=== PATIENT | male | born 1950 | race Hispanic/Latino ===

== ENCOUNTER 2017-06-05 14:59 | Inpatient (IN) | payer MEDICARE ==
[2017-06-05 14:59] VITALS: PULSE 69
--- NOTE | 2017-06-05 15:49 | C.PDOC ---
History Of Present Illness Sae Nettles is a 67 year old male, with a past medical history HTN, A-fib and arthritis, who was sent to the emergency department by Dr. Chu for right great toe redness and pain onset x1 week. Patient is currently on Coumadin for A -fib. He denies any trauma. No further medical complaints. PMD: Cain Chu Time Seen by Provider: 06/05/17 15:34 Chief Complaint (Nursing): Lower Extremity Problem/Injury History Per: Patient History/Exam Limitations: no limitations Onset/Duration Of Symptoms: Days (x1 week) Current Symptoms Are (Timing): Still Present Severity: Mild Pain Scale Rating Of: 2 Past Medical History Reviewed: Historical Data, Nursing Documentation, Vital Signs Vital Signs: Last Vital Signs Temp 97.4 F L 06/05/17 15:03 Pulse 72 06/05/17 15:03 Resp 20 06/05/17 15:03 BP 110/70 06/05/17 15:03 Pulse Ox 99 06/05/17 16:51 - Medical History PMH: Arthritis, Atrial Fibrillation, Benign Prostatic Hyperplasia, CAD, Cardiac Aneurysm (aortic), CHF, Gall Bladder Disease, HTN, Mitral Valve Prolapse Surgical History: Pacemaker - [facility] Procedures DRAINAGE OF GALLBLADDER WITH DRAINAGE DEVICE, PERC APPROACH (07/20/16) FLUOROSCOPY OF GALLBLADDER USING LOW OSMOLAR CONTRAST (08/28/16) Family History: States: Unknown Family Hx - Social History Hx Tobacco Use: No Hx Alcohol Use: No Hx Substance Use: No - Immunization History Hx Tetanus Toxoid Vaccination: Yes Hx Influenza Vaccination: Yes Hx Pneumococcal Vaccination: Yes Review Of Systems Except As Marked, All Systems Reviewed And Found Negative. Musculoskeletal: Positive for: Foot Pain (right great toe) Physical Exam - Physical Exam Appears: No Acute Distress Skin: Normal Color, Warm, Dry Head: Atraumatic Neck: Normal, Normal ROM, Supple Extremity: Tenderness (erythema with great toe, excoriated plantar surface), No Calf Tenderness, Swelling (right great toe) Pulses: Right Dorsalis Pedis: Normal (PT pulse normal) ED Course And Treatment - Laboratory Results Result Diagrams: 06/05/17 16:05 06/05/17 16:05 O2 Sat by Pulse Oximetry: 99 (RA) Pulse Ox Interpretation: Normal Medical Decision Making Medical Decision Making: Initial Impression: Cellulitis Initial Plan: --Comp Metabolic Panel --CBC w/ differential --PTT --PT --Chest one view [RAD] --Vancomycin 1 gm in 200 ml IVPB --Blood culture --Foot right 3 views routine [RAD] --reevaluation 16:35 -Spoke to Dr. Chu, will admit for cellulitis 17:03 CXR FINDINGS: LUNGS: Clear. Bilateral prominent nipple shadows PLEURA: No pneumothorax or pleural fluid seen. CARDIOVASCULAR: Cardiomegaly. Left-sided AICD device. Midline sternotomy. Faint valvular prosthesis suggested OSSEOUS STRUCTURES: Minimal thoracic spondylosis. VISUALIZED UPPER ABDOMEN: Normal. OTHER FINDINGS: None. IMPRESSION: No infiltrate. No acute cardiopulmonary pathology appreciated 17:05 Foot x-ray FINDINGS: BONES: No fracture. JOINTS: First metatarsal-phalangeal joint 1st interphalangeal joint space narrowing with subchondral sclerosis. SOFT TISSUES: Normal. OTHER FINDINGS: Hammertoe orientations and clinodactyly posterior calcaneal spur- blending Achilles tendon insertional enthesophyte. Shallow appearing plantar arch. Faint anterior arterial vascular calcifications IMPRESSION: No fracture. Degenerative changes. Posterior calcaneal spurring. Disposition Discussed With Dr.: Cain Chu Doctor Will See Patient In The: Hospital Counseled Patient/Family Regarding: Studies Performed, Diagnosis - Disposition Disposition: HOSPITALIZED Disposition Time: 16:30 Condition: FAIR - Clinical Impression Clinical Impression: Cellulitis - Scribe Statement Mitesh Silva Provider Attestation: All medical record entries made by the Scribe were at my direction and personally dictated by me. I have reviewed the chart and agree that the record accurately reflects my personal performance of the history, physical exam, medical decision making, and the department course for this patient. I have also personally directed, reviewed, and agree with the discharge instructions and disposition.
[2017-06-05 16:10] LABS: BASO # 0.1 K/uL (0.0-0.2); BASO % 0.7 % (0.0-2.0); EOS # 0.2 K/uL (0.0-0.7); EOS % 2.1 % (0.0-4.0); HEMATOCRIT 34.3 % (35.0-51.0); LYMPH # 1.6 K/uL (1.0-4.3); MEAN CORPUSCULAR HEMOGLOBIN 33.7 pg (27.0-31.0); MEAN CORPUSCULAR HGB CONC 34.1 g/dL (33.0-37.0); MEAN PLATELET VOLUME 7.5 fL (7.2-11.7); MONO # 0.7 K/uL (0.0-0.8); MONO % 8.1 % (0.0-10.0); NRBC % 0.1 % (0.0-2.0); RED CELL DISTRIBUTION WIDTH 14.8 % (11.5-14.5); WHITE BLOOD COUNT 8.8 K/uL (4.8-10.8)
[2017-06-05 16:14] LABS: MEAN CELL VOLUME 98.7 fL (80.0-94.0)
[2017-06-05 16:20] LABS: INR 1.4
[2017-06-05 16:27] LABS: ALB/GLOB RATIO 1.4 (1.0-2.1); BILIRUBIN,TOTAL 0.7 mg/dL (0.2-1.3); CALCIUM 8.8 mg/dl (8.6-10.4); POTASSIUM 4.7 mmol/L (3.6-5.2); TOTAL PROTEIN 7.2 g/dL (6.3-8.3)
[2017-06-05] MEDS ORDERED: Vancomycin 1 gm/NS 200 ml 1 GM/200 ML BAG IVPB ONE (17:00)
--- NOTE | 2017-06-05 17:05 | RAD ---
PROCEDURE: CHEST RADIOGRAPH, 1 VIEW HISTORY: abd pain COMPARISON: 07/20/2016 FINDINGS: LUNGS: Clear. Bilateral prominent nipple shadows PLEURA: No pneumothorax or pleural fluid seen. CARDIOVASCULAR: Cardiomegaly. Left-sided AICD device. Midline sternotomy. Faint valvular prosthesis suggested OSSEOUS STRUCTURES: Minimal thoracic spondylosis. VISUALIZED UPPER ABDOMEN: Normal. OTHER FINDINGS: None. IMPRESSION: No infiltrate. No acute cardiopulmonary pathology appreciated
--- NOTE | 2017-06-05 17:07 | RAD ---
PROCEDURE: Right Foot Radiographs. HISTORY: foot swelling COMPARISON: None. FINDINGS: BONES: No fracture. JOINTS: First metatarsal-phalangeal joint 1st interphalangeal joint space narrowing with subchondral sclerosis. SOFT TISSUES: Normal. OTHER FINDINGS: Hammertoe orientations and clinodactyly posterior calcaneal spur- blending Achilles tendon insertional enthesophyte. Shallow appearing plantar arch. Faint anterior arterial vascular calcifications IMPRESSION: No fracture. Degenerative changes. Posterior calcaneal spurring.
[2017-06-05 19:51] VITALS: RESP 20
[2017-06-05] MEDS ORDERED: Oxycodone/Acetaminophen 5/325 mg Tab PO PRN (21:12)
[2017-06-05] MEDS: Metoprolol Succinate 25 mg XL Tab PO SCH (22:02)
[2017-06-05] MEDS: Clindamycin 600mg/50ml NS 600 MG/50 ML BAG IVPB SCH (22:03)
[2017-06-06] MEDS: Clindamycin 600mg/50ml NS 600 MG/50 ML BAG IVPB SCH ×3 (05:51→22:35)
[2017-06-06 07:40] LABS: INR 1.6
[2017-06-06] MEDS ORDERED: Ergocalciferol 50,000 Intl Units Cap PO SCH (10:00)
[2017-06-06] MEDS: Saccharomyces Boulardi 250 mg Cap PO SCH ×3 (10:46→18:00)
[2017-06-06] MEDS: buPROPion 150 mg/24 Hours XL Tab PO SCH (10:47)
[2017-06-06] MEDS: Metoprolol Succinate 25 mg XL Tab PO SCH (10:47)
--- NOTE | 2017-06-06 13:40 | VASCLAB ---
PROCEDURE: Lower Extremity Venous Duplex Exam. HISTORY: R big toe ulcer PRIORS: None. TECHNIQUE: Bilateral common femoral, femoral, popliteal and posterior tibial, peroneal and great saphenous veins were evaluated. Flow was assessed with color Doppler, compressibility, assessment of phasic flow and augmentation response. Report prepared by Imtiaz Rico, VICK, RVT FINDINGS: RIGHT: 1. Common Femoral Vein: 1.1. Compressibility - Fully compressible: Thrombus - None : Flow - Phasic: Augmentation -Normal: Reflux - None. 2. Femoral Vein: 2.1. Compressibility - Fully compressible: Thrombus - None : Flow - Phasic: Augmentation -Normal: Reflux - None. 3. Popliteal Vein: 3.1. Compressibility - Fully compressible: Thrombus - None : Flow - Phasic: Augmentation -Normal: Reflux - None. 4. Posterior Tibial Vein: 4.1. Compressibility - Fully compressible: Thrombus - None: Flow - Phasic: Augmentation -Normal: Reflux - None. 5. Peroneal Vein: 5.1. Compressibility - Fully compressible: Thrombus - None: Flow - Phasic: Augmentation -Normal: Reflux - None. 6. Great Saphenous Vein: 6.1. Compressibility - Fully compressible: Thrombus - None: Flow - Phasic: Augmentation - Normal: Reflux - None. LEFT: 1. Common Femoral Vein: 1.1. Compressibility - Fully compressible: Thrombus - None: Flow - Phasic: Augmentation -Normal: Reflux - None. 2. Femoral Vein: 2.1. Compressibility - Fully compressible: Thrombus - None: Flow - Phasic: Augmentation -Normal: Reflux - None. 3. Popliteal Vein: 3.1. Compressibility - Fully compressible: Thrombus - None : Flow - Phasic: Augmentation -Normal: Reflux - None. 4. Posterior Tibial Vein: 4.1. Compressibility - Fully compressible: Thrombus - None: Flow - Phasic: Augmentation -Normal: Reflux - None. 5. Peroneal Vein: 5.1. Compressibility - Fully compressible: Thrombus - None: Flow - Phasic: Augmentation -Normal: Reflux - None. 6. Great Saphenous Vein: 6.1. Compressibility - Fully compressible: Thrombus - None: Flow - Phasic: Augmentation - Normal: Reflux - None. OTHER FINDINGS: Right: Anechoic irregular shaped non vascularlized mass noted behind the right knee, clinical correlation recommended. Left: None significant. IMPRESSION: Right: No evidence of deep or superficial vein thrombosis of the right lower extremity. Normal valve function noted of the right side. Left: No evidence of deep or superficial vein thrombosis of the left lower extremity. Normal valve function noted of the left side.
[2017-06-06] MEDS: MethylPREDNISolone 40 mg Vial IVP SCH ×2 (14:28→22:36)
--- NOTE | 2017-06-06 20:16 | CP.PCM.CON ---
History of Present Illness - History of Present Illness History of Present Illness: Podiatry Consult Note- Dr. Murphy 67 y.o m with PMHx of atrial fibrillation, CAD, aortic aneurysm, CHF, HTN, MVP, gout, arthritis, gall bladder disease, BPH, hernias seen at bedside for right foot hallux ulceration admitted for right foot cellulitis. Patient reports that he came to the ED after his primary doctor told him to for an infected right toe. He states he has been getting abx in the hospital and his redness and swelling is improving. Patient reports he first noticed the ulceration about 1 week ago. He does not know how he got the ulcer. Pt does not know if the ulcer was there long before. He denies any trauma or recent falls. States that he is in no pain but reports a throbbing sensation to the right hallux. He also complains of numbness and tingling to the RLE that is being maintained by Gabapentin. Pt denies n/v/sob/cp/chills/f or d. Patient denies calf pain. MD: Dr. Chu PMHx: atrial fibrillation, CAD, aortic aneurysm, CHF, HTN, MVP, gout, arthritis , gall bladder disease, BPH, hernias PSH: pacemaker, gallbladder removal, mitral valve change ALL: pencillin, statins- face swelling SH: reports socially drinking, denies current ilicit drug use (former drug user) , denies smoking FH: mother- DM, breast cancer, father- colon cancer MEDS: see medication reconciled list Past Patient History - Infectious Disease Hx of Infectious Diseases: None - Past Medical History & Family History Past Medical History?: Yes - Past Social History Smoking Status: Former Smoker - CARDIAC Hx Atrial Fibrillation: Yes Hx Congestive Heart Failure: Yes Hx Hypertension: Yes Hx Mitral Valve Prolapse: Yes Hx Pacemaker: Yes - PULMONARY Hx Respiratory Disorders: No - NEUROLOGICAL Hx Neurological Disorder: No - HEENT Hx HEENT Problems: Yes Hx Cataracts: Yes - INTEGUMENTARY Other/Comment: right great toe red and swollen - MUSCULOSKELETAL/RHEUMATOLOGICAL Hx Arthritis: Yes Hx Falls: No - GASTROINTESTINAL Hx Gall Bladder Disease: Yes - GENITOURINARY/GYNECOLOGICAL Hx Genitourinary Disorders: Yes Hx Prostate Problems: Yes - PSYCHIATRIC Hx Substance Use: No - SURGICAL HISTORY Hx Surgeries: Yes Hx Cardiac Catheterization: Yes Hx Orthopedic Surgery: Yes Hx Valve Replacement: Yes (Mitral) Other/Comment: with aicd and pacemaker. with aicd and pacemaker - ANESTHESIA Hx Anesthesia: Yes Hx Anesthesia Reactions: No Hx Malignant Hyperthermia: No Has any member of the family had a problem w/ anesthesia?: No Meds Allergies/Adverse Reactions: Allergies Allergy/AdvReac Type Severity Reaction Status Date / Time Penicillins Allergy Severe ANAPHYLAXIS Verified 08/31/16 10:16 statins Allergy Intermediate FATIGUE Uncoded 08/31/16 10:16 - Medications Medications: Current Medications Allopurinol (Zyloprim) 100 mg PO BID [facility] Last Admin: 06/06/17 18:00 Dose: 100 mg Amiodarone HCl (Cordarone) 200 mg PO DAILY [facility] Last Admin: 06/06/17 10:47 Dose: 200 mg Bupropion HCl (Wellbutrin Xl) 300 mg PO DAILY [facility] Last Admin: 06/06/17 10:47 Dose: 300 mg Colchicine (Colocrys) 0.6 mg PO DAILY [facility] Last Admin: 06/06/17 10:47 Dose: 0.6 mg Donepezil HCl (Aricept) 10 mg PO HS [facility] Last Admin: 06/05/17 22:02 Dose: 10 mg Ergocalciferol (Drisdol 50,000 Intl Units Cap) 1 cap PO QWK [facility] Last Admin: 06/06/17 10:47 Dose: 1 cap Finasteride (Proscar) 5 mg PO DAILY [facility] Last Admin: 06/06/17 10:47 Dose: 5 mg Gabapentin (Neurontin) 300 mg PO DAILY [facility] Last Admin: 06/06/17 10:46 Dose: 300 mg Clindamycin Phosphate (Cleocin In Normal Saline) 600 mg in 50 mls @ 100 mls/hr IVPB Q8H [facility] Last Admin: 06/06/17 14:16 Dose: 100 mls/hr Methylprednisolone (Solu-Medrol) 20 mg IVP Q8H [facility] Last Admin: 06/06/17 14:28 Dose: 20 mg Metoprolol Succinate (Toprol Xl) 25 mg PO DAILY [facility] Last Admin: 06/06/17 10:47 Dose: 25 mg Oxycodone/Acetaminophen (Percocet 5/325 Mg Tab) 1 tab PO QID PRN PRN Reason: Pain Stop: 06/08/17 21:13 Saccharomyces Boulardii (Florastor) 250 mg PO TID [facility] Last Admin: 06/06/17 18:00 Dose: 250 mg Tamsulosin HCl (Flomax) 0.4 mg PO DAILY [facility] Last Admin: 06/06/17 10:47 Dose: 0.4 mg Physical Exam - Constitutional Appears: Well, Non-toxic, No Acute Distress - Extremities Exam Additional comments: Vasc: DP and PT 2/4 bilaterally, temperature gradient wnl, CFT < 3 seconds x10 digits, no edema noted Ortho: pain with palpation the right hallux ulceration Neuro: protective sensation diminished, gross sensation intact Derm: ulceration located at the medial distal R hallux measuring approximately .5 x .5 x .1, wound base is granular with 100% granulation noted, no active drainage, mild odor noted, erythema noted extending to the dorsum of the foot, no streaking, no purulence, no abscess, no probe to bone noted - Neurological Exam Neurological exam: Alert, Oriented x3 - Psychiatric Exam Psychiatric exam: Normal Affect, Normal Mood Results - Vital Signs Recent Vital Signs: Last Vital Signs Temp 97.3 F L 06/06/17 15:00 Pulse 64 06/06/17 15:00 Resp 20 06/06/17 15:00 BP 110/61 06/06/17 15:00 Pulse Ox 100 06/06/17 15:00 - Labs Result Diagrams: 06/07/17 07:13 06/07/17 07:13 Labs: Laboratory Results - last 24 hr 06/06/17 07:10 PT 19.1 H INR 1.6 Assessment & Plan - Assessment and Plan (Free Text) Assessment: 67 y.o m with PMHx of atrial fibrillation, CAD, aortic aneurysm, CHF, HTN, MVP, gout, arthritis, gall bladder disease, BPH, hernias seen at bedside for right foot hallux ulceration admitted for right foot cellulitis. Plan: Patient examined and evaluated Charts, labs, vitals reviewed Discussed plan in detail with attending Dr. Murphy Ulceration cultured. pending results Cleansed ulceration with peroxide and dressed with saline w2d and cling Ulceration to be cleansed with peroxide and dressing to be changed q12 hr with saline wet to dry dressing c/w abx wound culture pending X-rays results- no fracture, no degenerative changes noted ESR pending results Podiatry will continue to follow to while in house
--- NOTE | 2017-06-07 00:56 | PN ---
DATE: 06/06/2017 SUBJECTIVE: This is a 67-year-old male with history of multiple medical problems including Marfan's syndrome, was deferred to emergency room for pain and swelling of the right lower extremity that has been progressing for one week duration. The patient was evaluated in the emergency room and he was admitted for cellulitis of the right lower extremity. The patient also was found to have infected ulcer in the right big toe. REVIEW OF SYSTEMS: Reveals exertional shortness of breath, which is in the patient's baseline status. Other review of system is negative. ALLERGIES: NO KNOWN ALLERGIES. MEDICATIONS: As per MAR. PAST MEDICAL HISTORY: Coronary artery disease - status post PCI, chronic atrial fibrillation - on Coumadin, Marfan's syndrome, thoracic aortic aneurysm, aortic regurgitation. FAMILY HISTORY: Noncontributory. SOCIAL HISTORY: No history of smoking, EtOH, or substance abuse. PHYSICAL EXAMINATION: GENERAL: The patient is in bed, comfortable at this time of examination, with no cardiopulmonary distress. VITAL SIGNS: Blood pressure 100/60, temperature 97.6, respiratory rate 20, and pulse of 82. HEENT: Pupils equal, reactive to light. Normal-appearing mucosa of the conjunctivae, oropharynx and nasal membrane mucosa. NECK: Supple. No JVD. No carotid bruit. No lymph node. No thyromegaly. CHEST AND LUNGS: Bilateral symmetrical expansion. Good air exchange. No rales, no rhonchi. CARDIOVASCULAR SYSTEM: PMI not localized. S1, S2. No additional sounds. ABDOMEN: Normoactive bowel sounds. No tenderness. No organomegaly. No masses. EXTREMITIES: No cyanosis, no clubbing, no edema. The patient has swelling of the right lower extremity with redness of the foot and of the right big toe. There is also an ulcer on the right big toe with some purulent discharge. ASSESSMENT: 1. Cellulitis of the right lower extremity. 2. Infected ulcer of the right big toe. 3. Acute gouty arthritis. 4. Chronic atrial fibrillation. 5. Coronary artery disease. PLAN: Continue clindamycin 600 mg three times a day with probiotic, Podiatry consult, followup venous Doppler of the lower extremities to rule out deep venous thrombosis, resume the patient's home medications, monitor PT/INR and get Coumadin accordingly. [facility] MD Vlad [facility] # [id number]
[2017-06-07] MEDS: Clindamycin 600mg/50ml NS 600 MG/50 ML BAG IVPB SCH ×3 (05:35→21:44)
[2017-06-07] MEDS: MethylPREDNISolone 40 mg Vial IVP SCH ×3 (06:01→21:46)
[2017-06-07 07:39] LABS: INR 2.2
[2017-06-07 07:51] LABS: HEMATOCRIT 33.7 % (35.0-51.0); LYMPH # 0.6 K/uL (1.0-4.3); LYMPH % 5.7 % (20.0-40.0); MEAN CELL VOLUME 98.3 fL (80.0-94.0); MEAN CORPUSCULAR HEMOGLOBIN 33.2 pg (27.0-31.0); MEAN CORPUSCULAR HGB CONC 33.8 g/dL (33.0-37.0); MONO # 0.1 K/uL (0.0-0.8); PLATELET COUNT 213 K/uL (130-400); RED CELL DISTRIBUTION WIDTH 14.4 % (11.5-14.5); WHITE BLOOD COUNT 10.3 K/uL (4.8-10.8)
[2017-06-07 07:57] LABS: BLOOD UREA NITROGEN 22 mg/dL (9-20); CALCIUM 8.3 mg/dl (8.6-10.4); CARBON DIOXIDE 29 mmol/L (22-30); CHLORIDE 103 mmol/L (98-107); GFR AFRICAN-AMERICAN > 60; GLUCOSE,RANDOM 129 mg/dL (75-110); POTASSIUM 4.4 mmol/L (3.6-5.2); SODIUM 138 mmol/L (132-148); URIC ACID 5.3 mg/dL (3.5-8.5)
--- NOTE | 2017-06-07 08:36 | CP.PCM.PN ---
Subjective - Date & Time of Evaluation Date of Evaluation: 06/07/17 Time of Evaluation: 08:36 - Subjective Subjective: Podiatry Progress note for Dr. Camacho 67 year old male was seen resting comfortably at bedside with attending, Dr. Camacho regarding right hallux ulceration. Patient states that his foot feels better and less swollen than yesterday. Denies any trauma to his right big toe. He is AAOx3, NAD. Denies any pain to his right great toe. Denies any n/v/f/c/sob/cp. Objective - Vital Signs/Intake and Output Vital Signs (last 24 hours): Temp Pulse Resp BP Pulse Ox 97.9 F 69 20 137/81 98 06/07/17 08:03 06/07/17 08:03 06/07/17 08:03 06/07/17 08:03 06/07/17 08:03 Intake and Output: 06/07/17 06/07/17 06:59 18:59 Intake Total 920 Balance 920 - Medications Medications: Current Medications Allopurinol (Zyloprim) 100 mg PO BID [facility] Last Admin: 06/06/17 18:00 Dose: 100 mg Amiodarone HCl (Cordarone) 200 mg PO DAILY [facility] Last Admin: 06/06/17 10:47 Dose: 200 mg Bupropion HCl (Wellbutrin Xl) 300 mg PO DAILY [facility] Last Admin: 06/06/17 10:47 Dose: 300 mg Colchicine (Colocrys) 0.6 mg PO DAILY [facility] Last Admin: 06/06/17 10:47 Dose: 0.6 mg Donepezil HCl (Aricept) 10 mg PO HS [facility] Last Admin: 06/06/17 22:35 Dose: 10 mg Ergocalciferol (Drisdol 50,000 Intl Units Cap) 1 cap PO QWK [facility] Last Admin: 06/06/17 10:47 Dose: 1 cap Finasteride (Proscar) 5 mg PO DAILY [facility] Last Admin: 06/06/17 10:47 Dose: 5 mg Gabapentin (Neurontin) 300 mg PO DAILY [facility] Last Admin: 06/06/17 10:46 Dose: 300 mg Clindamycin Phosphate (Cleocin In Normal Saline) 600 mg in 50 mls @ 100 mls/hr IVPB Q8H [facility] Last Admin: 06/07/17 05:35 Dose: 100 mls/hr Methylprednisolone (Solu-Medrol) 20 mg IVP Q8H [facility] Last Admin: 06/07/17 06:01 Dose: 20 mg Metoprolol Succinate (Toprol Xl) 25 mg PO DAILY [facility] Last Admin: 06/06/17 10:47 Dose: 25 mg Oxycodone/Acetaminophen (Percocet 5/325 Mg Tab) 1 tab PO QID PRN PRN Reason: Pain Stop: 06/08/17 21:13 Saccharomyces Boulardii (Florastor) 250 mg PO TID [facility] Last Admin: 06/06/17 18:00 Dose: 250 mg Tamsulosin HCl (Flomax) 0.4 mg PO DAILY [facility] Last Admin: 06/06/17 10:47 Dose: 0.4 mg - Labs Labs: 06/07/17 07:13 06/07/17 07:13 PT 25.3 SECONDS (9.7-12.2) H D 06/07/17 07:13 INR 2.2 D 06/07/17 07:13 APTT 31 SECONDS (21-34) 06/05/17 16:05 - Constitutional Appears: Well, Non-toxic, No Acute Distress - Extremities Exam Additional comments: Lower extremity focused exam: Vasc: DP and PT pulses palpable 2/4 bilaterally, temperature gradient warm to warm from proximal to distal, CFT < 3 seconds x10, no edema noted Ortho: Tenderness with palpation the right hallux ulceration Neuro: Protective sensation diminished, gross sensation intact Derm: Ulceration located at the medial aspect of the right distal hallux measuring approximately 0.3 x 0.3 x 0.1 cm. wound base is granular with hyperkeratotic periwound. no active drainage, no purulence, no probe to bone noted. Mild odor noted, erythema noted extending to the dorsum of the foot measuring approximately-resolving - Neurological Exam Neurological Exam: Alert, Awake, Oriented x3 - Psychiatric Exam Psychiatric exam: Normal Affect, Normal Mood Assessment and Plan - Assessment and Plan (Free Text) Assessment: 67 year old male with right hallux ulceration and cellulitis-resolving Plan: Patient examined and evaluated with attending, Dr. Camacho Charts, labs, vitals review; afebrile, WBC 10.3 Wound culture pending Cleansed ulceration with peroxide and dressed with saline w2d and cling Ulceration to be cleansed with peroxide and dressing to be changed q12 hr with saline wet to dry dressing cont IV abx per primary X-rays results- no fracture, no degenerative changes noted ESR 45 triphasic bone scan ordered Podiatry will continue to follow to while in house
[2017-06-07 08:47] LABS: NEUTROPHIL 93 % (50-75); TOTAL CELLS COUNTED 100
[2017-06-07] MEDS: Metoprolol Succinate 25 mg XL Tab PO SCH (10:10)
[2017-06-07] MEDS: Saccharomyces Boulardi 250 mg Cap PO SCH ×3 (10:10→17:29)
[2017-06-07] MEDS: buPROPion 150 mg/24 Hours XL Tab PO SCH (10:11)
--- NOTE | 2017-06-07 15:26 | NM ---
PROCEDURE: Three-phase bone scan attention right foot HISTORY: right hallux ulcer COMPARISON: 06/05/2017 TECHNIQUE: Following administration of 23.4 miCu of Tc MDP multiplanar whole body images were obtained. FINDINGS: Flow component: Increased flow to the right foot in particular the 1st digit. Blood pool component: Accumulation of radionuclide 1st digit right foot Delayed images at 3:00: Retention of radionuclide 1st digit right foot. Other findings: None. IMPRESSION: Positive 3 phase bone scan for acute osseous process/ osteomyelitis right 1st digit.
[2017-06-08] MEDS: Clindamycin 600mg/50ml NS 600 MG/50 ML BAG IVPB SCH ×2 (05:21→14:32)
[2017-06-08] MEDS: MethylPREDNISolone 40 mg Vial IVP SCH ×3 (05:21→21:33)
[2017-06-08 07:32] LABS: INR 2.7
[2017-06-08] MEDS: Metoprolol Succinate 25 mg XL Tab PO SCH (11:07)
[2017-06-08] MEDS: Saccharomyces Boulardi 250 mg Cap PO SCH ×3 (11:08→17:46)
[2017-06-08] MEDS: buPROPion 150 mg/24 Hours XL Tab PO SCH (11:11)
--- NOTE | 2017-06-08 14:10 | CP.PCM.PN ---
Subjective - Date & Time of Evaluation Date of Evaluation: 06/08/17 Time of Evaluation: 14:06 - Subjective Subjective: Podiatry Progress note for Dr. Camacho 67 year old male was seen resting comfortably at bedside regarding right hallux ulceration. Patient states that his foot feels better and less swollen than yesterday. He is AAOx3, NAD. Currently denies any pain to his right great toe. Denies any n/v/f/c/sob/cp Objective - Vital Signs/Intake and Output Vital Signs (last 24 hours): Temp Pulse Resp BP Pulse Ox 97.6 F 70 20 138/80 96 06/08/17 08:41 06/08/17 08:41 06/08/17 08:41 06/08/17 08:41 06/08/17 08:41 Intake and Output: 06/08/17 06/08/17 06:59 18:59 Intake Total 910 Balance 910 - Medications Medications: Current Medications Allopurinol (Zyloprim) 100 mg PO BID [facility] Last Admin: 06/08/17 11:08 Dose: 100 mg Amiodarone HCl (Cordarone) 200 mg PO DAILY [facility] Last Admin: 06/08/17 11:07 Dose: 200 mg Bupropion HCl (Wellbutrin Xl) 300 mg PO DAILY [facility] Last Admin: 06/08/17 11:11 Dose: 300 mg Colchicine (Colocrys) 0.6 mg PO DAILY [facility] Last Admin: 06/08/17 11:08 Dose: 0.6 mg Donepezil HCl (Aricept) 10 mg PO HS [facility] Last Admin: 06/07/17 21:45 Dose: 10 mg Ergocalciferol (Drisdol 50,000 Intl Units Cap) 1 cap PO QWK [facility] Last Admin: 06/06/17 10:47 Dose: 1 cap Finasteride (Proscar) 5 mg PO DAILY [facility] Last Admin: 06/08/17 11:08 Dose: 5 mg Gabapentin (Neurontin) 300 mg PO DAILY [facility] Last Admin: 06/08/17 11:08 Dose: 300 mg Clindamycin Phosphate (Cleocin In Normal Saline) 600 mg in 50 mls @ 100 mls/hr IVPB Q8H [facility] Last Admin: 06/08/17 05:21 Dose: 100 mls/hr Methylprednisolone (Solu-Medrol) 20 mg IVP Q8H [facility] Last Admin: 06/08/17 05:21 Dose: 20 mg Metoprolol Succinate (Toprol Xl) 25 mg PO DAILY [facility] Last Admin: 06/08/17 11:07 Dose: 25 mg Oxycodone/Acetaminophen (Percocet 5/325 Mg Tab) 1 tab PO QID PRN PRN Reason: Pain Stop: 06/08/17 21:13 Saccharomyces Boulardii (Florastor) 250 mg PO TID [facility] Last Admin: 06/08/17 11:08 Dose: 250 mg Tamsulosin HCl (Flomax) 0.4 mg PO DAILY [facility] Last Admin: 06/08/17 11:08 Dose: 0.4 mg - Labs Labs: 06/07/17 07:13 06/07/17 07:13 PT 32.2 SECONDS (9.7-12.2) H* D 06/08/17 07:05 INR 2.7 D 06/08/17 07:05 APTT 31 SECONDS (21-34) 06/05/17 16:05 - Constitutional Appears: Well, Non-toxic, No Acute Distress - Extremities Exam Additional comments: Lower extremity focused exam: Vasc: DP and PT pulses palpable 2/4 bilaterally, temperature gradient warm to warm from proximal to distal, CFT < 3 seconds x10, no edema noted Ortho: Tenderness with palpation the right hallux ulceration Neuro: Protective sensation diminished, gross sensation intact Derm: Ulceration located at the medial aspect of the right distal hallux measuring approximately 0.3 x 0.3 x 0.1 cm. wound base is granular with hyperkeratotic periwound. no active drainage, no purulence, no probe to bone noted. Mild odor noted, erythema noted extending to the dorsum of the foot measuring approximately-resolving - Neurological Exam Neurological Exam: Alert, Awake, Oriented x3 - Psychiatric Exam Psychiatric exam: Normal Affect, Normal Mood Assessment and Plan - Assessment and Plan (Free Text) Assessment: 67 year old male with right hallux ulceration and cellulitis-resolving Plan: Patient examined and evaluated with attending, Dr. Camacho Charts, labs, vitals review; afebrile Wound culture pending Cleansed ulceration with peroxide and dressed with saline w2d and cling Ulceration to be cleansed with peroxide and dressing to be changed q12 hr with saline wet to dry dressing cont IV abx per primary X-rays results- no fracture, no degenerative changes noted ESR 45 triphasic bone scan IMPRESSION:Positive 3 phase bone scan for acute osseous process/ osteomyelitis right 1st digit. Podiatry will continue to follow to while in house
--- NOTE | 2017-06-08 14:18 | CP.PCM.CON ---
History of Present Illness - History of Present Illness History of Present Illness: INFECTIOUS DISEASE CONSULT; HPI; 67 year old male with history of Marfan's syndrome, atrial fibrillation on coumadin, aortic aneurysm, CHF s/p ICD placement/MVR with bioprosthetic valve in 2010+, gout, dementia, BPH who presented to hospital on 06/05/17 after his primary doctor told him to come to the ER for infected right toe. Hospital course noted. Patient has been getting IV Cleocin and his redness and swelling has been improving. Patient gives history off first noticing the ulceration about a week prior to admission. He is not sure whether he developed an ulcer long before but he denies any recent trauma or fall. Patient does feel throbbing sensation to the right hullux. Patient also complains SOME tingling sensation and is being maintained on gabapentin. Patient was sent for three-phase bone scan which came back positive for right first digit osteomyelitis. Infectious disease consultation requested by Dr. EMERITA BERRY FOR acute osteomyelitis right foot first digit/positive bone scan. PMH; MARFAN SYNDROME, ATRIAL FIBRILLATION, AORTIC ANEURYSM, CHF S/P AICD, BIOPROSTHETIC MITRAL VALVE REPLACEMENT IN 2010 GOUT,BPH, DEMENTIA. FAMILY HISTORY;MOTHER DIABETES MELLITUS, FATHER COLON CANCER. SOCIAL HISTORY; SOCIAL DRINKING. dENIES ILLICIT DRUG USE, DRUG USER, DENIES SMOKING. ALLERGY; PENICILLIN( ANAPHYLACTIC REACTION ) STATINS. SURGERY; GALLBLADDER REMOVAL, MITRAL VALVE REPLACEMENT WITH BIOPROSTHETIC VALVE IN 2010, PERMANENT PACEMAKER. Review of Systems - Constitutional Constitutional: absent: Chills, Fever - EENT Eyes: absent: Change in Vision Nose/Mouth/Throat: Dry Mouth - Cardiovascular Cardiovascular: absent: Chest Pain, Dyspnea - Respiratory Respiratory: absent: Cough - Gastrointestinal Gastrointestinal: Loose Stools. absent: Nausea, Vomiting - Genitourinary Genitourinary: absent: Dysuria - Integumentary Integumentary: Skin Ulcer (rt big toe with small ulcer at the tip. Skin dry.) - Neurological Neurological: absent: Headaches - Hematologic/Lymphatic Hematologic: As Per HPI Past Patient History - Infectious Disease Hx of Infectious Diseases: None - Past Medical History & Family History Past Medical History?: Yes - Past Social History Smoking Status: Former Smoker - CARDIAC Hx Atrial Fibrillation: Yes Hx Congestive Heart Failure: Yes Hx Hypertension: Yes Hx Mitral Valve Prolapse: Yes Hx Pacemaker: Yes - PULMONARY Hx Respiratory Disorders: No - NEUROLOGICAL Hx Neurological Disorder: No - HEENT Hx HEENT Problems: Yes Hx Cataracts: Yes - INTEGUMENTARY Other/Comment: right great toe red and swollen - MUSCULOSKELETAL/RHEUMATOLOGICAL Hx Arthritis: Yes Hx Falls: No - GASTROINTESTINAL Hx Gall Bladder Disease: Yes - GENITOURINARY/GYNECOLOGICAL Hx Genitourinary Disorders: Yes Hx Prostate Problems: Yes - PSYCHIATRIC Hx Substance Use: No - SURGICAL HISTORY Hx Surgeries: Yes Hx Cardiac Catheterization: Yes Hx Orthopedic Surgery: Yes Hx Valve Replacement: Yes (Mitral) Other/Comment: with aicd and pacemaker. with aicd and pacemaker - ANESTHESIA Hx Anesthesia: Yes Hx Anesthesia Reactions: No Hx Malignant Hyperthermia: No Has any member of the family had a problem w/ anesthesia?: No Meds Allergies/Adverse Reactions: Allergies Allergy/AdvReac Type Severity Reaction Status Date / Time Penicillins Allergy Severe ANAPHYLAXIS Verified 08/31/16 10:16 statins Allergy Intermediate FATIGUE Uncoded 08/31/16 10:16 - Medications Medications: Current Medications Allopurinol (Zyloprim) 100 mg PO BID [facility] Last Admin: 06/08/17 11:08 Dose: 100 mg Amiodarone HCl (Cordarone) 200 mg PO DAILY [facility] Last Admin: 06/08/17 11:07 Dose: 200 mg Bupropion HCl (Wellbutrin Xl) 300 mg PO DAILY [facility] Last Admin: 06/08/17 11:11 Dose: 300 mg Colchicine (Colocrys) 0.6 mg PO DAILY [facility] Last Admin: 06/08/17 11:08 Dose: 0.6 mg Donepezil HCl (Aricept) 10 mg PO HS [facility] Last Admin: 06/07/17 21:45 Dose: 10 mg Ergocalciferol (Drisdol 50,000 Intl Units Cap) 1 cap PO QWK [facility] Last Admin: 06/06/17 10:47 Dose: 1 cap Finasteride (Proscar) 5 mg PO DAILY [facility] Last Admin: 06/08/17 11:08 Dose: 5 mg Gabapentin (Neurontin) 300 mg PO DAILY [facility] Last Admin: 06/08/17 11:08 Dose: 300 mg Clindamycin Phosphate (Cleocin In Normal Saline) 600 mg in 50 mls @ 100 mls/hr IVPB Q8H [facility] Last Admin: 06/08/17 05:21 Dose: 100 mls/hr Methylprednisolone (Solu-Medrol) 20 mg IVP Q8H [facility] Last Admin: 06/08/17 05:21 Dose: 20 mg Metoprolol Succinate (Toprol Xl) 25 mg PO DAILY [facility] Last Admin: 06/08/17 11:07 Dose: 25 mg Oxycodone/Acetaminophen (Percocet 5/325 Mg Tab) 1 tab PO QID PRN PRN Reason: Pain Stop: 06/08/17 21:13 Saccharomyces Boulardii (Florastor) 250 mg PO TID [facility] Last Admin: 06/08/17 11:08 Dose: 250 mg Tamsulosin HCl (Flomax) 0.4 mg PO DAILY [facility] Last Admin: 06/08/17 11:08 Dose: 0.4 mg Physical Exam - Constitutional Appears: No Acute Distress - Head Exam Head Exam: NORMAL INSPECTION - Eye Exam Eye Exam: EOMI, PERRL - ENT Exam ENT Exam: Normal Oropharynx - Respiratory Exam Respiratory Exam: Clear to Auscultation Bilateral - Cardiovascular Exam Cardiovascular Exam: REGULAR RHYTHM, +S1, +S2 - GI/Abdominal Exam GI & Abdominal Exam: Normal Bowel Sounds, Soft - Extremities Exam Extremities exam: Positive for: pedal edema (1+), pedal pulses present ( multiple excoriations LE B/L NOTED.). Negative for: calf tenderness - Neurological Exam Neurological exam: Alert, CN II-XII Intact, Oriented x3, Reflexes Normal - Psychiatric Exam Psychiatric exam: Normal Mood - Skin Skin Exam: Normal Color, Warm Results - Vital Signs Recent Vital Signs: Last Vital Signs Temp 97.6 F 06/08/17 08:41 Pulse 70 06/08/17 08:41 Resp 20 06/08/17 08:41 BP 138/80 06/08/17 08:41 Pulse Ox 96 06/08/17 08:41 - Labs Result Diagrams: 06/07/17 07:13 06/07/17 07:13 Labs: Laboratory Results - last 24 hr 06/08/17 07:05 PT 32.2 H* D INR 2.7 D - Imaging and Cardiology THREE-PHASE BONE SCAN Status: Report reviewed by me Assessment & Plan (1) Acute osteomyelitis Assessment and Plan: WOUND CULTURES-PENDING DCiv CLINDAMYCIN PATIENT STATES HE HAD LOOSE bm TODAY. START iv DAPTOMYCIN 4 MG/KG iv PIGGYBACK EVERY 24 HOURLY FOR STAPH AND mrsa COVERAGE.06/08/17 ADD BY MOUTH BACTRIM 1 DOUBLE STRENGTH BY MOUTH TWICE A DAY FOR GRAM-NEGATIVE/ COVERAGE.06/08/17. AWAIT CULTURES TO ADJUST ANTIBIOTICS. MONITOR RENAL FUNCTIONS CLOSELY. BACID 1 TABLET BY MOUTH AT BEDTIME DAILY. AWAIT CULTURES TO DECIDE FOR PICC LINE IF NEEDED Status: Acute (2) Cellulitis Assessment and Plan: PATIENT STATES THAT HIS CELLULITIS AND PAIN IS IMPROVING SINCE THE DAY OF ADMISSION AFTER STARTING ANTIBIOTICS. PATIENT IS BEING FOLLOWED BY PODIATRY LOCAL WOUND CARE PER PODIATRY. Status: Acute (3) CHF (congestive heart failure) Status: Acute (4) History of automatic internal cardiac defibrillator (AICD) Status: Acute (5) History of mitral valve replacement with bioprosthetic valve Status: Acute
[2017-06-08] MEDS ORDERED: DAPTOmycin 500 mg Inj (Cubicin) IVP SCH (14:30)
[2017-06-08] MEDS: Tmp-Smz 800 mg-160 mg DS Tab PO SCH (21:33)
[2017-06-08] MEDS: Lactobacillus Acidophilus 500 MU Cap PO SCH (22:22)
[2017-06-08] MEDS: Pantoprazole 40 mg EC Tab PO SCH (22:22)
--- NOTE | 2017-06-08 23:21 | PN ---
DATE: 06/07/2017 DAILY PROGRESS NOTE SUBJECTIVE: The patient was seen in 06/07/2017. He was not in any cardiopulmonary distress with decreased pain on the right foot. PHYSICAL EXAMINATION: VITAL SIGNS: Blood pressure 111/61, temperature 97.3, respiratory rate 20 and pulse 69. HEENT: Pupils equal, reactive to light. Normal-appearing mucosa of the conjunctivae, oropharyngeal and nasal membrane mucosa. NECK: Supple. No JVD. No carotid bruit. No lymph node. No thyromegaly. CHEST AND LUNGS: Bilateral symmetrical expansion. Good air exchange. No rales, no rhonchi. CARDIOVASCULAR SYSTEM: PMI not localized. S1, S2. No additional sounds. ABDOMEN: Normoactive bowel sounds. No tenderness. No organomegaly. No masses. EXTREMITIES: No cyanosis. No clubbing. No edema. The patient has decreased swelling and redness of the right lower extremity. ANIMAL HOSPITAL CLERK: Alert, awake, oriented x2 and no neurological deficit could be appreciated in the extremities. ASSESSMENT: 1. Cellulitis of the right lower extremity. 2. Infected right big toe ulcer. 3. History of chronic atrial fibrillation. 4. Coronary artery disease. 5. Marfan syndrome. PLAN: Give the patient 6 mg of Coumadin today and repeat PT/INR in the morning. Follow up Podiatry recommendations. [facility] MD Vlad
--- NOTE | 2017-06-09 00:27 | PN ---
DATE: 06/08/2017 SUBJECTIVE: Patient is seen today, 06/08/2017. He is not in any cardiopulmonary distress. Patient has 3-phase bone scan that showed osteomyelitis on the right first toe. PHYSICAL EXAMINATION: VITAL SIGNS: Blood pressure 135/82, temperature 97.3, respiratory rate 20, and pulse 70. HEENT: Pupils equal, reactive to light. Normal-appearing mucosa of the conjunctivae, oropharynx and nasal membrane mucosa. NECK: Supple. No JVD. No carotid bruit. No lymph node. No thyromegaly. CHEST AND LUNGS: Bilateral symmetrical expansion. Good air exchange. No rales, no rhonchi. CARDIOVASCULAR SYSTEM: PMI not localized. S1, S2. No additional sounds. ABDOMEN: Normoactive bowel sounds. No tenderness. No organomegaly. No masses. EXTREMITIES: No cyanosis, no clubbing, no edema. There is slight decreased redness and tenderness on the right foot. FACULTY SUPPORT COORDINATOR: Alert, awake, oriented x2. No neurological deficit could be appreciated. ASSESSMENT: 1. Osteomyelitis of the right big toe. 2. Coronary artery disease. 3. Chronic atrial fibrillation. PLAN: Give patient Coumadin 4 mg today and repeat PT and INR tomorrow. Infectious Disease consult and follow recommendations. Continue local wound treatment by Podiatry. Cain Chu MD
[2017-06-09] MEDS: MethylPREDNISolone 40 mg Vial IVP SCH ×3 (06:30→21:23)
[2017-06-09 07:13] LABS: INR 3.7
[2017-06-09 07:15] LABS: HEMATOCRIT 33.2 % (35.0-51.0); LYMPH # 0.6 K/uL (1.0-4.3); LYMPH % 3.9 % (20.0-40.0); MEAN CORPUSCULAR HEMOGLOBIN 32.8 pg (27.0-31.0); MEAN CORPUSCULAR HGB CONC 33.1 g/dL (33.0-37.0); MEAN PLATELET VOLUME 8.1 fL (7.2-11.7); MONO # 0.3 K/uL (0.0-0.8); MONO % 2.4 % (0.0-10.0); PLATELET COUNT 202 K/uL (130-400); WHITE BLOOD COUNT 14.2 K/uL (4.8-10.8)
[2017-06-09 07:39] LABS: ALKALINE PHOSPHATASE 71 U/L (38-126); ALT/SGPT 39 U/L (21-72); AST/SGOT 20 U/L (17-59); BILIRUBIN,DIRECT 0.3 mg/dL (0.0-0.4); BILIRUBIN,TOTAL 0.5 mg/dL (0.2-1.3); BLOOD UREA NITROGEN 28 mg/dL (9-20); CALCIUM 8.4 mg/dl (8.6-10.4); CARBON DIOXIDE 30 mmol/L (22-30); CHLORIDE 104 mmol/L (98-107); GFR AFRICAN-AMERICAN > 60; GLUCOSE,RANDOM 124 mg/dL (75-110); POTASSIUM 4.3 mmol/L (3.6-5.2); SODIUM 140 mmol/L (132-148); TOTAL PROTEIN 7.1 g/dL (6.3-8.3)
[2017-06-09] MEDS: Tmp-Smz 800 mg-160 mg DS Tab PO SCH ×2 (09:00→21:23)
[2017-06-09 09:02] LABS: NEUTROPHIL 90 % (50-75); TOTAL CELLS COUNTED 100
[2017-06-09] MEDS: Saccharomyces Boulardi 250 mg Cap PO SCH ×3 (10:29→17:04)
[2017-06-09] MEDS: Pantoprazole 40 mg EC Tab PO SCH (10:29)
[2017-06-09] MEDS: Metoprolol Succinate 25 mg XL Tab PO SCH (10:30)
[2017-06-09] MEDS: Lactobacillus Acidophilus 500 MU Cap PO SCH ×3 (10:31→19:00)
[2017-06-09] MEDS: buPROPion 150 mg/24 Hours XL Tab PO SCH (10:31)
--- NOTE | 2017-06-09 20:31 | CP.PCM.PN ---
Subjective - Date & Time of Evaluation Date of Evaluation: 06/09/17 Time of Evaluation: 20:30 - Subjective Subjective: AFEBRILE. OFFERS NO COMPLAINTS. RT. BIG TOE SWELLING/EDEMA AND CELLULITUS RESOLVING RT.FOOT 1ST DIGIT HULLUX TIP ULCER DRY. NO DRAINAGE NOTED. LABS: WOUND CULTURES +VE STAPHLOCOCCUS AUREUS S- PENDING. ESR 45. WBC INCREASING 14.2 CREAT 1.4/BUN 28 LFTS N. INR 3.7-HIGH Objective - Vital Signs/Intake and Output Vital Signs (last 24 hours): Temp Pulse Resp BP Pulse Ox 97.6 F 70 20 131/75 98 06/09/17 15:00 06/09/17 15:00 06/09/17 15:00 06/09/17 15:00 06/09/17 15:00 Intake and Output: 06/09/17 06/10/17 18:59 06:59 Intake Total 600 Balance 600 - Medications Medications: Current Medications Allopurinol (Zyloprim) 100 mg PO BID [facility] Last Admin: 06/09/17 17:04 Dose: 100 mg Amiodarone HCl (Cordarone) 200 mg PO DAILY [facility] Last Admin: 06/09/17 10:30 Dose: 200 mg Bupropion HCl (Wellbutrin Xl) 300 mg PO DAILY [facility] Last Admin: 06/09/17 10:31 Dose: 300 mg Colchicine (Colocrys) 0.6 mg PO DAILY [facility] Last Admin: 06/09/17 10:31 Dose: 0.6 mg Donepezil HCl (Aricept) 10 mg PO HS [facility] Last Admin: 06/08/17 21:33 Dose: 10 mg Ergocalciferol (Drisdol 50,000 Intl Units Cap) 1 cap PO QWK [facility] Last Admin: 06/06/17 10:47 Dose: 1 cap Finasteride (Proscar) 5 mg PO DAILY [facility] Last Admin: 06/09/17 10:31 Dose: 5 mg Gabapentin (Neurontin) 300 mg PO DAILY [facility] Last Admin: 06/09/17 10:29 Dose: 300 mg Daptomycin 380 mg/ Sodium (Chloride) 100 mls @ 100 mls/hr IV Q24H [facility] Stop: 06/13/17 16:01 Last Admin: 06/09/17 16:58 Dose: 100 mls/hr Lactobacillus Acidophilus (Bacid Acidophilus) 1 cap PO BID [facility] Last Admin: 06/09/17 19:00 Dose: 1 cap Loperamide HCl (Imodium) 4 mg PO ONCE PRN PRN Reason: Diarrhea Methylprednisolone (Solu-Medrol) 20 mg IVP Q8H [facility] Last Admin: 06/09/17 13:10 Dose: 20 mg Metoprolol Succinate (Toprol Xl) 25 mg PO DAILY [facility] Last Admin: 06/09/17 10:30 Dose: 25 mg Pantoprazole Sodium (Protonix Ec Tab) 40 mg PO DAILY [facility] Last Admin: 06/09/17 10:29 Dose: 40 mg Saccharomyces Boulardii (Florastor) 250 mg PO TID [facility] Last Admin: 06/09/17 17:04 Dose: 250 mg Tamsulosin HCl (Flomax) 0.4 mg PO DAILY [facility] Last Admin: 06/09/17 10:29 Dose: 0.4 mg Trimethoprim/Sulfamethoxazole (Bactrim Ds Tab) 1 tab PO Q12H [facility] Last Admin: 06/09/17 09:00 Dose: 1 tab - Labs Labs: 06/09/17 06:52 06/09/17 06:52 PT 43.1 SECONDS (9.7-12.2) H* D 06/09/17 06:52 INR 3.7 D 06/09/17 06:52 APTT 31 SECONDS (21-34) 06/05/17 16:05 - Constitutional Appears: No Acute Distress - Head Exam Head Exam: NORMAL INSPECTION - Eye Exam Eye Exam: EOMI, PERRL - ENT Exam ENT Exam: Normal Oropharynx - Neck Exam Neck Exam: Normal Inspection - Respiratory Exam Respiratory Exam: Decreased Breath Sounds - Cardiovascular Exam Cardiovascular Exam: REGULAR RHYTHM, +S1, +S2 - Extremities Exam Extremities Exam: absent: Calf Tenderness, Pedal Edema, Tenderness Additional comments: RT. BIG TOE SWELLING/EDEMAAND CELLULITUS RESOLVING RT.FOOT 1ST DIGIT HULLUX TIP ULCER DRINGUP. NO DRAINAGE NOTED. - Neurological Exam Neurological Exam: Alert, Awake, CN II-XII Intact, Normal Gait, Oriented x3, Reflexes Normal - Skin Skin Exam: Abrasion (B/L LE..), Warm Assessment and Plan (1) Acute osteomyelitis Assessment & Plan: CONTINUE iv DAPTOMYCIN 4 MG/KG iv PIGGYBACK EVERY 24 HOURLY FOR STAPH AND mrsa COVERAGE.06/08/17 ON BY MOUTH BACTRIM 1 DOUBLE STRENGTH BY MOUTH TWICE A DAY FOR GRAM-NEGATIVE/ COVERAGE.06/08/17. AWAIT CULTURES TO ADJUST ANTIBIOTICS. MONITOR RENAL FUNCTIONS CLOSELY. BACID 1 TABLET BY MOUTH AT BEDTIME DAILY. AWAIT C/S TO DECIDE FOR PICC LINE IF NEEDED. PT MADE TO UNDERSTAND ,THAT HE HAS A BIOPROSTHETIC MVR AND STSI/OM CAN LEAD TO SEPTICEMIA AND WE HAVE TO BE CAREFUL IN TREATING HIM. Status: Acute (2) Cellulitis Status: Acute (3) CHF (congestive heart failure) Status: Acute (4) History of automatic internal cardiac defibrillator (AICD) Status: Acute (5) History of mitral valve replacement with bioprosthetic valve Assessment & Plan: BLOOD CULTURE -VE X 4 DAYS. Status: Acute
[2017-06-10] MEDS: MethylPREDNISolone 40 mg Vial IVP SCH ×2 (05:55→13:20)
[2017-06-10 09:03] LABS: INR 3.1
[2017-06-10] MEDS: Tmp-Smz 800 mg-160 mg DS Tab PO SCH ×2 (09:28→21:33)
[2017-06-10] MEDS: buPROPion 150 mg/24 Hours XL Tab PO SCH (09:28)
[2017-06-10] MEDS: Lactobacillus Acidophilus 500 MU Cap PO SCH ×2 (09:28→17:07)
[2017-06-10] MEDS: Metoprolol Succinate 25 mg XL Tab PO SCH (09:29)
[2017-06-10] MEDS: Pantoprazole 40 mg EC Tab PO SCH (09:29)
[2017-06-10] MEDS: Saccharomyces Boulardi 250 mg Cap PO SCH ×3 (09:29→17:07)
--- NOTE | 2017-06-10 11:03 | CP.PCM.PN ---
Subjective - Date & Time of Evaluation Date of Evaluation: 06/10/17 Time of Evaluation: 10:00 - Subjective Subjective: Podiatry Progress note for Dr. Camacho 67 year old male was seen at bedside for right hallux ulceration. He is seen resting comfortably in bed, AAOx3, and in NAD. Patient reports that he is doing good. Denies of any acute overnight events. He denies any pain today. He denies any n/v/f/c/sob/cp/d. Objective - Vital Signs/Intake and Output Vital Signs (last 24 hours): Temp Pulse Resp BP Pulse Ox 98.5 F 71 20 119/73 97 06/10/17 09:59 06/10/17 09:59 06/10/17 09:59 06/10/17 09:59 06/10/17 09:59 Intake and Output: 06/10/17 06/10/17 06:59 18:59 Intake Total 940.5 Balance 940.5 - Medications Medications: Current Medications Allopurinol (Zyloprim) 100 mg PO BID [facility] Last Admin: 06/10/17 09:28 Dose: 100 mg Amiodarone HCl (Cordarone) 200 mg PO DAILY [facility] Last Admin: 06/10/17 09:28 Dose: 200 mg Bupropion HCl (Wellbutrin Xl) 300 mg PO DAILY [facility] Last Admin: 06/10/17 09:28 Dose: 300 mg Colchicine (Colocrys) 0.6 mg PO DAILY [facility] Last Admin: 06/10/17 09:28 Dose: 0.6 mg Donepezil HCl (Aricept) 10 mg PO HS [facility] Last Admin: 06/09/17 21:23 Dose: 10 mg Ergocalciferol (Drisdol 50,000 Intl Units Cap) 1 cap PO QWK [facility] Last Admin: 06/06/17 10:47 Dose: 1 cap Finasteride (Proscar) 5 mg PO DAILY [facility] Last Admin: 06/10/17 09:28 Dose: 5 mg Gabapentin (Neurontin) 300 mg PO DAILY [facility] Last Admin: 06/10/17 09:28 Dose: 300 mg Daptomycin 380 mg/ Sodium (Chloride) 100 mls @ 100 mls/hr IV Q24H [facility] Stop: 06/13/17 16:01 Last Admin: 06/09/17 16:58 Dose: 100 mls/hr Lactobacillus Acidophilus (Bacid Acidophilus) 1 cap PO BID [facility] Last Admin: 06/10/17 09:28 Dose: 1 cap Loperamide HCl (Imodium) 4 mg PO ONCE PRN PRN Reason: Diarrhea Methylprednisolone (Solu-Medrol) 20 mg IVP Q8H [facility] Last Admin: 06/10/17 05:55 Dose: 20 mg Metoprolol Succinate (Toprol Xl) 25 mg PO DAILY [facility] Last Admin: 06/10/17 09:29 Dose: 25 mg Pantoprazole Sodium (Protonix Ec Tab) 40 mg PO DAILY [facility] Last Admin: 06/10/17 09:29 Dose: 40 mg Saccharomyces Boulardii (Florastor) 250 mg PO TID [facility] Last Admin: 06/10/17 09:29 Dose: 250 mg Tamsulosin HCl (Flomax) 0.4 mg PO DAILY [facility] Last Admin: 06/10/17 09:28 Dose: 0.4 mg Trimethoprim/Sulfamethoxazole (Bactrim Ds Tab) 1 tab PO Q12H [facility] Last Admin: 06/10/17 09:28 Dose: 1 tab - Labs Labs: 06/09/17 06:52 06/09/17 06:52 PT 36.5 SECONDS (9.7-12.2) H* D 06/10/17 08:47 INR 3.1 06/10/17 08:47 APTT 31 SECONDS (21-34) 06/05/17 16:05 - Constitutional Appears: Well, Non-toxic, No Acute Distress - Extremities Exam Additional comments: Lower extremity focused exam: Vasc: DP and PT pulses palpable 2/4 bilaterally, temperature gradient warm to warm from proximal to distal, CFT < 3 seconds x10, no edema noted Ortho: Tenderness with palpation the right hallux ulceration Neuro: Protective sensation diminished, gross sensation intact Derm: Ulceration located at the medial aspect of the right distal hallux measuring approximately 0.3 x 0.3 x 0.1 cm. wound base is granular with hyperkeratotic periwound. no active drainage, no purulence, no probe to bone noted. Mild odor noted, erythema noted extending to the dorsum of the foot- resolving - Neurological Exam Neurological Exam: Alert, Awake, Oriented x3 - Psychiatric Exam Psychiatric exam: Normal Affect, Normal Mood Assessment and Plan - Assessment and Plan (Free Text) Assessment: 67 year old male with right hallux ulceration and cellulitis-resolving Plan: Patient examined and evaluated Charts, labs, vitals review (afebrile, WBC=14.2 on 06/09/17) Wound culture preliminary results- Staph Aureus MRSA not detected Cleansed ulceration with peroxide and dressed with saline w2d and cling Ulceration to be cleansed with peroxide and dressing to be changed q12 hr with saline wet to dry dressing cont IV abx per primary X-rays results- no fracture, no degenerative changes noted ESR 45 triphasic bone scan IMPRESSION:Positive 3 phase bone scan for acute osseous process/ osteomyelitis right 1st digit. Podiatry will continue to follow to while in house
--- NOTE | 2017-06-11 01:38 | PN ---
DATE: 06/10/2017 DAILY PROGRESS NOTE SUBJECTIVE: Patient is seen today 06/10/2017. He is having less pain and redness in the right lower extremity. PHYSICAL EXAMINATION: VITAL SIGNS: Blood pressure is 131/81, temperature 98.1, respiratory rate 20 and pulse 70. HEENT: Pupils equal and reactive to light. Normal-appearing mucosa of the conjunctivae, oropharynx and nasal membrane mucosa. NECK: Supple. No JVD. No carotid bruit. No lymph node. No thyromegaly. CHEST AND LUNGS: Bilateral symmetrical expansion. Good air exchange. No rales, no rhonchi. CARDIOVASCULAR SYSTEM: PMI not localized. S1, S2. No additional sounds. ABDOMEN: Normoactive bowel sounds. No tenderness. No organomegaly. No masses. EXTREMITIES: No cyanosis, no clubbing, no edema. CENTRAL NERVOUS SYSTEM: Alert, awake, oriented x3. No neurological deficit could be appreciated. ASSESSMENT: 1. Osteomyelitis of the right foot. 2. Marfan syndrome. 3. Chronic atrial fibrillation. 4. Coronary artery disease. PLAN: Hold Coumadin today as INR is above 3.5. We will stop the steroids that we were treating acute gouty arthritis with and continue current IV antibiotics and follow recommendations of Infectious Disease consultants. Cain Chu MD
[2017-06-11 07:53] LABS: INR 2.9
[2017-06-11] MEDS: Lactobacillus Acidophilus 500 MU Cap PO SCH ×2 (09:06→18:15)
[2017-06-11] MEDS: Tmp-Smz 800 mg-160 mg DS Tab PO SCH ×2 (09:06→20:50)
[2017-06-11] MEDS: Pantoprazole 40 mg EC Tab PO SCH (09:07)
[2017-06-11] MEDS: buPROPion 150 mg/24 Hours XL Tab PO SCH (09:07)
[2017-06-11] MEDS: Saccharomyces Boulardi 250 mg Cap PO SCH ×3 (09:08→18:14)
[2017-06-11] MEDS: Metoprolol Succinate 25 mg XL Tab PO SCH (09:09)
--- NOTE | 2017-06-11 09:28 | CP.PCM.PN ---
Subjective - Date & Time of Evaluation Date of Evaluation: 06/11/17 Time of Evaluation: 09:28 - Subjective Subjective: Podiatry Progress note for Dr. Camacho 67 year old male was seen resting comfortably at bedside with attending, Dr. Camacho regarding right hallux ulceration. Patient states that his foot feels better and less swollen. He is AAOx3, NAD. Currently denies any pain to his right great toe. Denies any n/v/f/c/sob/cp Objective - Vital Signs/Intake and Output Vital Signs (last 24 hours): Temp Pulse Resp BP Pulse Ox 97.4 F L 72 20 132/81 98 06/11/17 07:53 06/11/17 07:53 06/11/17 07:53 06/11/17 07:53 06/11/17 07:53 Intake and Output: 06/11/17 06/11/17 06:59 18:59 Intake Total 580 Balance 580 - Medications Medications: Current Medications Allopurinol (Zyloprim) 100 mg PO BID [facility] Last Admin: 06/11/17 09:07 Dose: 100 mg Amiodarone HCl (Cordarone) 200 mg PO DAILY [facility] Last Admin: 06/11/17 09:09 Dose: 200 mg Bupropion HCl (Wellbutrin Xl) 300 mg PO DAILY [facility] Last Admin: 06/11/17 09:07 Dose: 300 mg Colchicine (Colocrys) 0.6 mg PO DAILY [facility] Last Admin: 06/10/17 09:28 Dose: 0.6 mg Donepezil HCl (Aricept) 10 mg PO HS [facility] Last Admin: 06/10/17 21:33 Dose: 10 mg Ergocalciferol (Drisdol 50,000 Intl Units Cap) 1 cap PO QWK [facility] Last Admin: 06/06/17 10:47 Dose: 1 cap Finasteride (Proscar) 5 mg PO DAILY [facility] Last Admin: 06/11/17 09:07 Dose: 5 mg Gabapentin (Neurontin) 300 mg PO DAILY [facility] Last Admin: 06/11/17 09:05 Dose: 300 mg Daptomycin 380 mg/ Sodium (Chloride) 100 mls @ 100 mls/hr IV Q24H [facility] Stop: 06/13/17 16:01 Last Admin: 06/10/17 16:53 Dose: 100 mls/hr Lactobacillus Acidophilus (Bacid Acidophilus) 1 cap PO BID [facility] Last Admin: 06/11/17 09:06 Dose: 1 cap Loperamide HCl (Imodium) 4 mg PO ONCE PRN PRN Reason: Diarrhea Metoprolol Succinate (Toprol Xl) 25 mg PO DAILY [facility] Last Admin: 06/11/17 09:09 Dose: 25 mg Pantoprazole Sodium (Protonix Ec Tab) 40 mg PO DAILY [facility] Last Admin: 06/11/17 09:07 Dose: 40 mg Saccharomyces Boulardii (Florastor) 250 mg PO TID [facility] Last Admin: 06/11/17 09:08 Dose: 250 mg Tamsulosin HCl (Flomax) 0.4 mg PO DAILY [facility] Last Admin: 06/11/17 09:06 Dose: 0.4 mg Trimethoprim/Sulfamethoxazole (Bactrim Ds Tab) 1 tab PO Q12H [facility] Last Admin: 06/11/17 09:06 Dose: 1 tab - Labs Labs: 06/09/17 06:52 06/09/17 06:52 PT 34.8 SECONDS (9.7-12.2) H* 06/11/17 07:31 INR 2.9 06/11/17 07:31 APTT 31 SECONDS (21-34) 06/05/17 16:05 - Constitutional Appears: Well, Non-toxic, No Acute Distress - Extremities Exam Additional comments: Lower extremity focused exam: Vasc: DP and PT pulses palpable 2/4 bilaterally, temperature gradient warm to warm from proximal to distal, CFT < 3 seconds x10, no edema noted Ortho: Tenderness with palpation the right hallux ulceration Neuro: Protective sensation diminished, gross sensation intact Derm: Ulceration located at the medial aspect of the right distal hallux measuring approximately 0.2 x 0.2 x 0.1 cm. wound base is granular with hyperkeratotic periwound. no active drainage, no purulence, no probe to bone, no odor noted - Neurological Exam Neurological Exam: Alert, Awake, Oriented x3 - Psychiatric Exam Psychiatric exam: Normal Affect, Normal Mood Assessment and Plan - Assessment and Plan (Free Text) Assessment: 67 year old male with right hallux ulceration and cellulitis-resolved Plan: Patient examined and evaluated with attending, Dr. Camacho Charts, labs, vitals review; afebrile Wound culture-Staph aureus Cleansed ulceration with peroxide and dressed with saline w2d and cling cont IV abx per ID X-rays results- no fracture, no degenerative changes noted ESR 45 triphasic bone scan IMPRESSION:Positive 3 phase bone scan for acute osseous process/ osteomyelitis right 1st digit. Podiatry will continue to follow to while in house Patient to follow up with Dr. Camacho upon discharge
--- NOTE | 2017-06-11 17:55 | CP.PCM.PN ---
Subjective - Date & Time of Evaluation Date of Evaluation: 06/11/17 Time of Evaluation: 17:55 - Subjective Subjective: afebrile Right hullux ulceration granulating well Right foot edema and cellulitis much improved. WOUND CULTURE +VE STAPH AUREUS-S -PENDING DISCUSSED WITH STAFF AND MICROBIOLOGY. PATIENT ALLERGIC TO PENICILLIN/AND ALSO HAS A BIOPROSTHETIC MITRAL VALVE. AWAIT CULTURE SENSITIVITY TO ADJUST ANTIBIOTICS. Objective - Vital Signs/Intake and Output Vital Signs (last 24 hours): Temp Pulse Resp BP Pulse Ox 97.7 F 72 20 132/81 98 06/11/17 15:00 06/11/17 16:21 06/11/17 15:00 06/11/17 16:21 06/11/17 16:21 Intake and Output: 06/11/17 06/11/17 06:59 18:59 Intake Total 580 Balance 580 - Medications Medications: Current Medications Allopurinol (Zyloprim) 100 mg PO BID [facility] Last Admin: 06/11/17 09:07 Dose: 100 mg Amiodarone HCl (Cordarone) 200 mg PO DAILY [facility] Last Admin: 06/11/17 09:09 Dose: 200 mg Bupropion HCl (Wellbutrin Xl) 300 mg PO DAILY [facility] Last Admin: 06/11/17 09:07 Dose: 300 mg Colchicine (Colocrys) 0.6 mg PO DAILY [facility] Last Admin: 06/11/17 09:28 Dose: 0.6 mg Donepezil HCl (Aricept) 10 mg PO HS [facility] Last Admin: 06/10/17 21:33 Dose: 10 mg Ergocalciferol (Drisdol 50,000 Intl Units Cap) 1 cap PO QWK [facility] Last Admin: 06/06/17 10:47 Dose: 1 cap Finasteride (Proscar) 5 mg PO DAILY [facility] Last Admin: 06/11/17 09:07 Dose: 5 mg Gabapentin (Neurontin) 300 mg PO DAILY [facility] Last Admin: 06/11/17 09:05 Dose: 300 mg Daptomycin 380 mg/ Sodium (Chloride) 100 mls @ 100 mls/hr IV Q24H [facility] Stop: 06/13/17 16:01 Last Admin: 06/10/17 16:53 Dose: 100 mls/hr Lactobacillus Acidophilus (Bacid Acidophilus) 1 cap PO BID [facility] Last Admin: 06/11/17 09:06 Dose: 1 cap Loperamide HCl (Imodium) 4 mg PO ONCE PRN PRN Reason: Diarrhea Metoprolol Succinate (Toprol Xl) 25 mg PO DAILY [facility] Last Admin: 06/11/17 09:09 Dose: 25 mg Pantoprazole Sodium (Protonix Ec Tab) 40 mg PO DAILY [facility] Last Admin: 06/11/17 09:07 Dose: 40 mg Saccharomyces Boulardii (Florastor) 250 mg PO TID [facility] Last Admin: 06/11/17 13:50 Dose: 250 mg Tamsulosin HCl (Flomax) 0.4 mg PO DAILY [facility] Last Admin: 06/11/17 09:06 Dose: 0.4 mg Trimethoprim/Sulfamethoxazole (Bactrim Ds Tab) 1 tab PO Q12H [facility] Last Admin: 06/11/17 09:06 Dose: 1 tab - Labs Labs: 06/09/17 06:52 06/09/17 06:52 PT 34.8 SECONDS (9.7-12.2) H* 06/11/17 07:31 INR 2.9 06/11/17 07:31 APTT 31 SECONDS (21-34) 06/05/17 16:05 - Constitutional Appears: No Acute Distress - Head Exam Head Exam: NORMAL INSPECTION - Eye Exam Eye Exam: EOMI, PERRL - ENT Exam ENT Exam: Normal Oropharynx - Neck Exam Neck Exam: Normal Inspection - Respiratory Exam Respiratory Exam: Clear to Ausculation Bilateral - Cardiovascular Exam Cardiovascular Exam: REGULAR RHYTHM, +S1, +S2 - GI/Abdominal Exam GI & Abdominal Exam: Soft, Normal Bowel Sounds - Extremities Exam Extremities Exam: Pedal Edema. absent: Calf Tenderness, Tenderness (RIGHT FOOT- DRESSING IN PLACE) - Neurological Exam Neurological Exam: Awake, CN II-XII Intact, Oriented x3 - Skin Skin Exam: Normal Color, Warm Assessment and Plan (1) Acute osteomyelitis Assessment & Plan: CONTINUE iv DAPTOMYCIN 4 MG/KG iv PIGGYBACK EVERY 24 HOURLY FOR STAPH AND mrsa COVERAGE.06/08/17 ON BY MOUTH BACTRIM 1 DOUBLE STRENGTH BY MOUTH TWICE A DAY FOR GRAM-NEGATIVE/ COVERAGE.06/08/17. AWAIT CULTURES TO ADJUST ANTIBIOTICS. MONITOR RENAL FUNCTIONS CLOSELY. BACID 1 TABLET BY MOUTH AT BEDTIME DAILY. AWAIT C/S TO DECIDE FOR PICC LINE IF NEEDED. PT MADE TO UNDERSTAND ,THAT HE HAS A BIOPROSTHETIC MVR AND STSI/OM CAN LEAD TO SEPTICEMIA AND WE HAVE TO BE CAREFUL IN TREATING HIM. CASE DISCUSSED WITH DR. DONOHUE. DR BERRY AND CONVERTIBLE SOFA BEDSPRING TESTER. WILL FOLLOW C/S AND ADJUST ANTIBIOTICS. Status: Acute Status: Acute (2) Cellulitis Status: Acute (3) CHF (congestive heart failure) Status: Acute (4) History of automatic internal cardiac defibrillator (AICD) Status: Acute (5) History of mitral valve replacement with bioprosthetic valve Status: Acute
[2017-06-12] MEDS: Tmp-Smz 800 mg-160 mg DS Tab PO SCH (08:02)
[2017-06-12 08:41] LABS: INR 2.1
[2017-06-12] MEDS: Metoprolol Succinate 25 mg XL Tab PO SCH (09:30)
[2017-06-12] MEDS: Lactobacillus Acidophilus 500 MU Cap PO SCH (09:30)
[2017-06-12] MEDS: Saccharomyces Boulardi 250 mg Cap PO SCH ×2 (09:30→13:25)
[2017-06-12] MEDS: Pantoprazole 40 mg EC Tab PO SCH (09:30)
[2017-06-12] MEDS: buPROPion 150 mg/24 Hours XL Tab PO SCH (09:31)
--- NOTE | 2017-06-12 10:49 | CP.PCM.PN ---
Subjective - Date & Time of Evaluation Date of Evaluation: 06/12/17 Time of Evaluation: 10:49 - Subjective Subjective: Podiatry Progress note for Dr. Camacho 67 year old male was seen resting comfortably at bedside regarding right hallux ulceration. Patient states that his foot feels better and less swollen. He is AAOx3, NAD. Denies any pain to his right hallux. Denies any n/v/f/c/sob/cp Objective - Vital Signs/Intake and Output Vital Signs (last 24 hours): Temp Pulse Resp BP Pulse Ox 97.3 F L 76 20 113/66 98 06/12/17 07:31 06/12/17 07:31 06/12/17 07:31 06/12/17 07:31 06/12/17 07:31 Intake and Output: 06/12/17 06/12/17 06:59 18:59 Intake Total 200 Balance 200 - Medications Medications: Current Medications Allopurinol (Zyloprim) 100 mg PO BID [facility] Last Admin: 06/12/17 09:30 Dose: 100 mg Amiodarone HCl (Cordarone) 200 mg PO DAILY [facility] Last Admin: 06/12/17 09:30 Dose: 200 mg Bupropion HCl (Wellbutrin Xl) 300 mg PO DAILY [facility] Last Admin: 06/12/17 09:31 Dose: 300 mg Colchicine (Colocrys) 0.6 mg PO DAILY [facility] Last Admin: 06/12/17 09:30 Dose: 0.6 mg Donepezil HCl (Aricept) 10 mg PO HS [facility] Last Admin: 06/11/17 21:40 Dose: 10 mg Ergocalciferol (Drisdol 50,000 Intl Units Cap) 1 cap PO QWK [facility] Last Admin: 06/06/17 10:47 Dose: 1 cap Finasteride (Proscar) 5 mg PO DAILY [facility] Last Admin: 06/12/17 09:31 Dose: 5 mg Gabapentin (Neurontin) 300 mg PO DAILY [facility] Last Admin: 06/12/17 09:29 Dose: 300 mg Daptomycin 380 mg/ Sodium (Chloride) 100 mls @ 100 mls/hr IV Q24H [facility] Stop: 06/13/17 16:01 Last Admin: 06/11/17 16:00 Dose: 100 mls/hr Lactobacillus Acidophilus (Bacid Acidophilus) 1 cap PO BID [facility] Last Admin: 06/12/17 09:30 Dose: 1 cap Loperamide HCl (Imodium) 4 mg PO ONCE PRN PRN Reason: Diarrhea Metoprolol Succinate (Toprol Xl) 25 mg PO DAILY [facility] Last Admin: 06/12/17 09:30 Dose: 25 mg Pantoprazole Sodium (Protonix Ec Tab) 40 mg PO DAILY [facility] Last Admin: 06/12/17 09:30 Dose: 40 mg Saccharomyces Boulardii (Florastor) 250 mg PO TID [facility] Last Admin: 06/12/17 09:30 Dose: 250 mg Tamsulosin HCl (Flomax) 0.4 mg PO DAILY [facility] Last Admin: 06/12/17 09:29 Dose: 0.4 mg Trimethoprim/Sulfamethoxazole (Bactrim Ds Tab) 1 tab PO Q12H [facility] Last Admin: 06/12/17 08:02 Dose: 1 tab - Labs Labs: 06/09/17 06:52 06/09/17 06:52 PT 24.6 SECONDS (9.7-12.2) H D 06/12/17 08:27 INR 2.1 D 06/12/17 08:27 APTT 31 SECONDS (21-34) 06/05/17 16:05 - Constitutional Appears: Well, Non-toxic, No Acute Distress - Extremities Exam Additional comments: Lower extremity focused exam: Vasc: DP and PT pulses palpable 2/4 bilaterally, temperature gradient warm to warm from proximal to distal, CFT < 3 seconds x10, no edema noted Ortho: Tenderness with palpation the right hallux ulceration Neuro: Protective sensation diminished, gross sensation intact Derm: Ulceration located at the medial aspect of the right distal hallux measuring approximately 0.2 x 0.2 x 0.1 cm. wound base is granular with hyperkeratotic periwound. no active drainage, no purulence, no probe to bone, no odor noted - Neurological Exam Neurological Exam: Alert, Awake, Oriented x3 - Psychiatric Exam Psychiatric exam: Normal Affect, Normal Mood Assessment and Plan - Assessment and Plan (Free Text) Assessment: 67 year old male with right hallux ulceration and cellulitis-resolved Plan: Patient examined and evaluated with attending, Dr. Camacho Charts, labs, vitals review; afebrile Wound culture-Staph aureus Cleansed ulceration with peroxide and dressed with DSD and cling Home visiting nurses to apply peroxide to cleanse wound, then apply 4x4 and cling to right hallux cont IV abx per ID X-rays results- no fracture, no degenerative changes noted ESR 45 triphasic bone scan IMPRESSION:Positive 3 phase bone scan for acute osseous process/ osteomyelitis right 1st digit. Podiatry will continue to follow to while in house Patient to follow up with Dr. Camacho upon discharge
--- NOTE | 2017-06-12 11:22 | CP.PCM.PN ---
Subjective - Date & Time of Evaluation Date of Evaluation: 06/12/17 Time of Evaluation: 11:22 - Subjective Subjective: Medicine Progress Note: Hospitalist Service Objective - Vital Signs/Intake and Output Vital Signs (last 24 hours): Temp Pulse Resp BP Pulse Ox 97.3 F L 76 20 113/66 98 06/12/17 07:31 06/12/17 07:31 06/12/17 07:31 06/12/17 07:31 06/12/17 07:31 Intake and Output: 06/12/17 06/12/17 06:59 18:59 Intake Total 200 Balance 200 - Medications Medications: Current Medications Allopurinol (Zyloprim) 100 mg PO BID [facility] Last Admin: 06/12/17 09:30 Dose: 100 mg Amiodarone HCl (Cordarone) 200 mg PO DAILY [facility] Last Admin: 06/12/17 09:30 Dose: 200 mg Bupropion HCl (Wellbutrin Xl) 300 mg PO DAILY [facility] Last Admin: 06/12/17 09:31 Dose: 300 mg Colchicine (Colocrys) 0.6 mg PO DAILY [facility] Last Admin: 06/12/17 09:30 Dose: 0.6 mg Donepezil HCl (Aricept) 10 mg PO HS [facility] Last Admin: 06/11/17 21:40 Dose: 10 mg Ergocalciferol (Drisdol 50,000 Intl Units Cap) 1 cap PO QWK [facility] Last Admin: 06/06/17 10:47 Dose: 1 cap Finasteride (Proscar) 5 mg PO DAILY [facility] Last Admin: 06/12/17 09:31 Dose: 5 mg Gabapentin (Neurontin) 300 mg PO DAILY [facility] Last Admin: 06/12/17 09:29 Dose: 300 mg Daptomycin 380 mg/ Sodium (Chloride) 100 mls @ 100 mls/hr IV Q24H [facility] Stop: 06/13/17 16:01 Last Admin: 06/11/17 16:00 Dose: 100 mls/hr Lactobacillus Acidophilus (Bacid Acidophilus) 1 cap PO BID [facility] Last Admin: 06/12/17 09:30 Dose: 1 cap Loperamide HCl (Imodium) 4 mg PO ONCE PRN PRN Reason: Diarrhea Metoprolol Succinate (Toprol Xl) 25 mg PO DAILY [facility] Last Admin: 06/12/17 09:30 Dose: 25 mg Pantoprazole Sodium (Protonix Ec Tab) 40 mg PO DAILY [facility] Last Admin: 06/12/17 09:30 Dose: 40 mg Saccharomyces Boulardii (Florastor) 250 mg PO TID [facility] Last Admin: 06/12/17 09:30 Dose: 250 mg Tamsulosin HCl (Flomax) 0.4 mg PO DAILY [facility] Last Admin: 06/12/17 09:29 Dose: 0.4 mg Trimethoprim/Sulfamethoxazole (Bactrim Ds Tab) 1 tab PO Q12H [facility] Last Admin: 06/12/17 08:02 Dose: 1 tab Warfarin Sodium (Coumadin) 4 mg PO 1800 [facility] Stop: 06/12/17 18:01 - Labs Labs: 06/09/17 06:52 06/09/17 06:52 PT 24.6 SECONDS (9.7-12.2) H D 06/12/17 08:27 INR 2.1 D 06/12/17 08:27 APTT 31 SECONDS (21-34) 06/05/17 16:05
--- NOTE | 2017-06-12 11:35 | CP.PCM.PN ---
Subjective - Date & Time of Evaluation Date of Evaluation: 06/12/17 Time of Evaluation: 11:34 - Subjective Subjective: afebrile Right hullux ulceration granulating well Right foot edema and cellulitis much improved. WOUND CULTURE +VE STAPH AUREUS--MSSA S- CIPRO,BACTRIM R-CLINDA PATIENT ALLERGIC TO PENICILLIN/AND ALSO HAS A BIOPROSTHETIC MITRAL VALVE. CASE DISCUSSED WITH DR CHIRINOS-HOSPITALIST. PATIENT CAN BE DISCHARGED HOME ON BY MOUTH CIPRO 250 TWICE A DAY FOR 14 DAYS. GIVEN HIS BONE SCAN FINDINGS OF OSTEOMYELITIS ,PATIENT NEEDS TO BE REEVALUATED FOR MORE ANTIBIOTICS. PTS RENAL FUNCTIONS ARE POOR. SO WILL NEED TO FOLLOW UP CLOSELY BEFORE PRESCRIBING HIM PROLONGED COURSE OF ANTIBIOTICS. PATIENT TO FOLLOW UP WITH pmd FOR CLOSE FOLLOW-UP OF RENAL FUNCTIONS. Objective - Vital Signs/Intake and Output Vital Signs (last 24 hours): Temp Pulse Resp BP Pulse Ox 97.3 F L 76 20 113/66 98 06/12/17 07:31 06/12/17 07:31 06/12/17 07:31 06/12/17 07:31 06/12/17 07:31 Intake and Output: 06/12/17 06/12/17 06:59 18:59 Intake Total 200 Balance 200 - Medications Medications: Current Medications Allopurinol (Zyloprim) 100 mg PO BID [facility] Last Admin: 06/12/17 09:30 Dose: 100 mg Amiodarone HCl (Cordarone) 200 mg PO DAILY [facility] Last Admin: 06/12/17 09:30 Dose: 200 mg Bupropion HCl (Wellbutrin Xl) 300 mg PO DAILY [facility] Last Admin: 06/12/17 09:31 Dose: 300 mg Colchicine (Colocrys) 0.6 mg PO DAILY [facility] Last Admin: 06/12/17 09:30 Dose: 0.6 mg Donepezil HCl (Aricept) 10 mg PO HS [facility] Last Admin: 06/11/17 21:40 Dose: 10 mg Ergocalciferol (Drisdol 50,000 Intl Units Cap) 1 cap PO QWK [facility] Last Admin: 06/06/17 10:47 Dose: 1 cap Finasteride (Proscar) 5 mg PO DAILY [facility] Last Admin: 06/12/17 09:31 Dose: 5 mg Gabapentin (Neurontin) 300 mg PO DAILY [facility] Last Admin: 06/12/17 09:29 Dose: 300 mg Daptomycin 380 mg/ Sodium (Chloride) 100 mls @ 100 mls/hr IV Q24H [facility] Stop: 06/13/17 16:01 Last Admin: 06/11/17 16:00 Dose: 100 mls/hr Lactobacillus Acidophilus (Bacid Acidophilus) 1 cap PO BID [facility] Last Admin: 06/12/17 09:30 Dose: 1 cap Loperamide HCl (Imodium) 4 mg PO ONCE PRN PRN Reason: Diarrhea Metoprolol Succinate (Toprol Xl) 25 mg PO DAILY [facility] Last Admin: 06/12/17 09:30 Dose: 25 mg Pantoprazole Sodium (Protonix Ec Tab) 40 mg PO DAILY [facility] Last Admin: 06/12/17 09:30 Dose: 40 mg Saccharomyces Boulardii (Florastor) 250 mg PO TID [facility] Last Admin: 06/12/17 09:30 Dose: 250 mg Tamsulosin HCl (Flomax) 0.4 mg PO DAILY [facility] Last Admin: 06/12/17 09:29 Dose: 0.4 mg Trimethoprim/Sulfamethoxazole (Bactrim Ds Tab) 1 tab PO Q12H [facility] Last Admin: 06/12/17 08:02 Dose: 1 tab Warfarin Sodium (Coumadin) 4 mg PO 1800 [facility] Stop: 06/12/17 18:01 - Labs Labs: 06/09/17 06:52 06/09/17 06:52 PT 24.6 SECONDS (9.7-12.2) H D 06/12/17 08:27 INR 2.1 D 06/12/17 08:27 APTT 31 SECONDS (21-34) 06/05/17 16:05 - Constitutional Appears: No Acute Distress - Head Exam Head Exam: NORMAL INSPECTION - Eye Exam Eye Exam: EOMI, PERRL - ENT Exam ENT Exam: Normal Oropharynx - Neck Exam Neck Exam: Normal Inspection - Respiratory Exam Respiratory Exam: Decreased Breath Sounds - Cardiovascular Exam Cardiovascular Exam: REGULAR RHYTHM, +S1, +S2 - Extremities Exam Extremities Exam: absent: Calf Tenderness, Pedal Edema - Neurological Exam Neurological Exam: Alert, Awake, CN II-XII Intact, Oriented x3 - Psychiatric Exam Psychiatric exam: Normal Mood - Skin Skin Exam: Normal Color, Warm Assessment and Plan (1) Acute osteomyelitis Status: Acute (2) Cellulitis Status: Acute (3) CHF (congestive heart failure) Status: Acute (4) History of automatic internal cardiac defibrillator (AICD) Status: Acute (5) History of mitral valve replacement with bioprosthetic valve Status: Acute
[2017-06-12 12:47] LABS: BASO % 0.3 % (0.0-2.0); EOS # 0.1 K/uL (0.0-0.7); EOS % 1.5 % (0.0-4.0); HEMATOCRIT 35.2 % (35.0-51.0); LYMPH % 10.6 % (20.0-40.0); MEAN CELL VOLUME 98.7 fL (80.0-94.0); MEAN CORPUSCULAR HEMOGLOBIN 33.8 pg (27.0-31.0); MEAN CORPUSCULAR HGB CONC 34.3 g/dL (33.0-37.0); MEAN PLATELET VOLUME 7.5 fL (7.2-11.7); MONO # 0.8 K/uL (0.0-0.8); RED CELL DISTRIBUTION WIDTH 13.9 % (11.5-14.5); WHITE BLOOD COUNT 9.1 K/uL (4.8-10.8)
[2017-06-12 13:04] LABS: BILIRUBIN,DIRECT 0.3 mg/dL (0.0-0.4); BILIRUBIN,TOTAL 0.7 mg/dL (0.2-1.3); CALCIUM 8.2 mg/dl (8.6-10.4); POTASSIUM 4.4 mmol/L (3.6-5.2); TOTAL PROTEIN 7.4 g/dL (6.3-8.3)
--- NOTE | 2017-06-12 13:11 | US ---
Renal ultrasound History: Kidney evaluation. Comparison: CT scan dated 08/29/2016 Technique: Real-time sonography was performed through the kidneys. Findings: Right kidney: 11.1 x 5.4 x 5.4 centimeters. Mild increased echogenicity of the renal parenchymal cortex suggestive for medical renal disease. No calculi or hydronephrosis. Multiple hypoechoic cysts, in the upper pole measuring 6.3 x 6.1 x 6.9 centimeters and in the midpole measuring 1.8 x 1.8 x 1.7 centimeters and 1.4 x 1.4 x 1.6 centimeters respectively. Left Kidney: 10.3 x 5.7 x 5.6 centimeters. Mild increased echogenicity of the renal parenchymal cortex suggestive for medical renal disease. No calculi or hydronephrosis. Multiple hypoechoic cysts in the upper pole measuring 2.2 x 2.3 x 1.9 centimeters and in the midpole measuring 1.9 x 1.7 x 1.8 centimeters. Visualized aorta is preserved. Somewhat under distended urinary bladder limits evaluation. Impression: Bilateral renal cysts. Increased echogenicity of the bilateral renal parenchymal cortices suggestive for medical renal disease. Somewhat under distended urinary bladder limits evaluation.
--- NOTE | 2017-06-12 13:17 | CP.PCM.DIS ---
<Dede Leon - Last Filed: 06/12/17 18:51> Provider - Provider Date of Admission: 06/05/17 16:35 Attending physician: Siri Keith DO Time Spent in preparation of Discharge (in minutes): 30 Hospital Course - Lab Results Lab Results: Micro Results 06/06/17 20:57 Foot - Right Gram Stain - Final 06/06/17 20:57 Foot - Right Wound Culture - Final Staphylococcus Aureus 06/05/17 15:45 Blood Blood Culture - Final NO GROWTH AFTER 5 DAYS 06/05/17 15:45 Blood Gram Stain - Final TEST NOT PERFORMED 06/05/17 16:00 Blood Blood Culture - Final NO GROWTH AFTER 5 DAYS 06/05/17 16:00 Blood Gram Stain - Final TEST NOT PERFORMED 06/09/17 15:30 Naris MRSA Culture (Admit) - Final MRSA NOT DETECTED Most Recent Lab Values WBC 9.1 K/uL (4.8-10.8) 06/12/17 12:38 RBC 3.56 Mil/uL (4.40-5.90) L 06/12/17 12:38 Hgb 12.1 g/dL (12.0-18.0) 06/12/17 12:38 Hct 35.2 % (35.0-51.0) 06/12/17 12:38 MCV 98.7 fL (80.0-94.0) H 06/12/17 12:38 MCH 33.8 pg (27.0-31.0) H 06/12/17 12:38 MCHC 34.3 g/dL (33.0-37.0) 06/12/17 12:38 RDW 13.9 % (11.5-14.5) 06/12/17 12:38 Plt Count 232 K/uL (130-400) 06/12/17 12:38 MPV 7.5 fL (7.2-11.7) 06/12/17 12:38 Neut % (Auto) 78.6 % (50.0-75.0) H 06/12/17 12:38 Lymph % (Auto) 10.6 % (20.0-40.0) L 06/12/17 12:38 [place] % (Auto) 9.0 % (0.0-10.0) 06/12/17 12:38 Eos % (Auto) 1.5 % (0.0-4.0) 06/12/17 12:38 Baso % (Auto) 0.3 % (0.0-2.0) 06/12/17 12:38 Neut # 7.2 K/uL (1.8-7.0) H 06/12/17 12:38 Lymph # 1.0 K/uL (1.0-4.3) 06/12/17 12:38 [place] # 0.8 K/uL (0.0-0.8) 06/12/17 12:38 Eos # 0.1 K/uL (0.0-0.7) 06/12/17 12:38 Baso # 0.0 K/uL (0.0-0.2) 06/12/17 12:38 Neutrophils % (Manual) 90 % (50-75) H 06/09/17 06:52 Band Neutrophils % 3 % (0-2) H 06/07/17 07:13 Lymphocytes % (Manual) 5 % (20-40) L 06/09/17 06:52 Monocytes % (Manual) 5 % (0-10) 06/09/17 06:52 Platelet Estimate Normal (NORMAL) 06/09/17 06:52 Poikilocytosis (manual Slight 06/07/17 07:13 Ovalocytes Slight 06/09/17 06:52 ESR 45 mm/hr (0-15) H 06/06/17 21:49 PT 24.6 SECONDS (9.7-12.2) H D 06/12/17 08:27 INR 2.1 D 06/12/17 08:27 APTT 31 SECONDS (21-34) 06/05/17 16:05 Sodium 132 mmol/L (132-148) 06/12/17 12:38 Potassium 4.4 mmol/L (3.6-5.2) 06/12/17 12:38 Chloride 99 mmol/L (98-107) 06/12/17 12:38 Carbon Dioxide 27 mmol/L (22-30) 06/12/17 12:38 Anion Gap 11 (10-20) 06/12/17 12:38 BUN 31 mg/dL (9-20) H 06/12/17 12:38 Creatinine 1.8 mg/dL (0.8-1.5) H 06/12/17 12:38 Est GFR ( Amer) 45 06/12/17 12:38 Est GFR (Non-Af Amer) 38 06/12/17 12:38 Random Glucose 97 mg/dL (75-110) 06/12/17 12:38 Uric Acid 5.3 mg/dL (3.5-8.5) 06/07/17 07:13 Calcium 8.2 mg/dl (8.6-10.4) L 06/12/17 12:38 Total Bilirubin 0.7 mg/dL (0.2-1.3) 06/12/17 12:38 Direct Bilirubin 0.3 mg/dL (0.0-0.4) 06/12/17 12:38 AST 25 U/L (17-59) 06/12/17 12:38 ALT 49 U/L (21-72) 06/12/17 12:38 Alkaline Phosphatase 80 U/L (38-126) 06/12/17 12:38 Total Protein 7.4 g/dL (6.3-8.3) 06/12/17 12:38 Albumin 3.8 g/dL (3.5-5.0) 06/12/17 12:38 Globulin 3.6 gm/dL (2.2-3.9) 06/12/17 12:38 Albumin/Globulin Ratio 1.0 (1.0-2.1) 06/12/17 12:38 - Hospital Course Hospital Course: Patient is a 67 year old male with past medical history of Marfans syndrome, bioprosthetic mitral valve, chronic atrial fibrillation on coumadin, gout, HTN, CHF, CAD, BPH, dementia presented to the ED by PMD Dr. Chu for right great toe redness and pain x 1 week. Patient denied any trauma. Patient was admitted for right foot cellulitis and was found to have right toe ulceration. Foot xray at time of admission showed degenerative changes, no fractures. Podiatry was consulted for wound care. Patient was started on Clindamycin for antibiotics. Bone Scan showed positive 3 phase bone scan for acute osseous process/ osteomyeolitis. ID was consulted and on the case. Patient was started on Daptomycin and Bactim DS for antibiotic coverage. Wound cultures grew back Staph aureus. Blood cultures showed no growth x 5 days. On admission, patient INR was subtherapeutic. Patient was started on Coumadin 6mg PO daily. Dosages of coumadin were adjusted in response to INR levels. When INR was supratherapeutic, Coumadin was held. For acute gouty arthritis, patient was started on steroids, allopurinol and colchicine. On day of discharge, patient was doing well. Ambulating and tolerating diet. Patient denied having any pain. Renal US was ordered for evaluation of both kidneys, patient will need to follow up on official report as outpatient. Prescriptions for physical therapy evaluation/treatment and retirement wound care 2-3 times weekly given. Wound cx sensitivites reviewed with Infectious Disease. Patient to take Ciprofloxacin 250mg BID x 14 days and will follow up with Dr Sanya Teresa in 2 weeks. ID also recommending weekly CBC, CMPs. INR noted to be 2.1 prior to discharge. Patient advised to continue Coumadin as previously prescribed. Will need to f/u with Dr Chu in 1 week. Medications reconciled. All questions and concerns were addressed. Discharge Exam - Head Exam Head Exam: NORMAL INSPECTION - Eye Exam Eye Exam: EOMI, Normal appearance - ENT Exam ENT Exam: Mucous Membranes Moist - Neck Exam Neck exam: Full Rom - Respiratory Exam Respiratory Exam: Clear to PA & Lateral, NORMAL BREATHING PATTERN, UNREMARKABLE. absent: Rales, Rhonchi, Wheezes - Cardiovascular Exam Cardiovascular Exam: REGULAR RHYTHM, +S1, +S2 - GI/Abdominal Exam GI & Abdominal Exam: Normal Bowel Sounds, Soft. absent: Rebound, Rigid, Tenderness - Extremities Exam Extremities exam: pedal pulses present Additional comments: No calf tenderness Right foot dressing in place - Back Exam Back exam: NORMAL INSPECTION - Neurological Exam Neurological exam: Alert, CN II-XII Intact, Normal Gait, Oriented x3 - Psychiatric Exam Psychiatric exam: Normal Affect, Normal Mood - Skin Skin Exam: Dry, Normal Color, Warm Discharge Plan - Discharge Medications Prescriptions: Ciprofloxacin [Cipro] 250 mg PO BID #28 tab Lactobacillus Acidophilus [Bacid Acidophilus] 1 cap PO BID #28 cap - Follow Up Plan Condition: STABLE Disposition: HOME/ ROUTINE Instructions: Ciprofloxacin (By mouth), Probiotic (By mouth), Heart Failure (DC ), Cellulitis (DC) Additional Instructions: 1. Patient to take antibiotics as prescribed 2. Visiting home care nurses for wound care 3. Script for PT eval and treatment given 4. Continue Coumadin as previously prescrobed 5. Will need to monitor labs weekly (CBC, CMP, INR) 6. Renal US completed, will need to f/u official report 7. F/U with Dr Teresa in [address] Chu within 1 week Referrals: Cain Chu MD [Staff Provider] - Randolph Teresa MD [Staff Provider] - <Siri Keith V - Last Filed: 06/12/17 21:35> Provider - Provider Date of Admission: 06/05/17 16:35 Attending physician: Siri Keith DO Consults: Dr. Brii Mora Time Spent in preparation of Discharge (in minutes): 31 Hospital Course - Lab Results Lab Results: Micro Results 06/06/17 20:57 Foot - Right Gram Stain - Final 06/06/17 20:57 Foot - Right Wound Culture - Final Staphylococcus Aureus 06/05/17 15:45 Blood Blood Culture - Final NO GROWTH AFTER 5 DAYS 06/05/17 15:45 Blood Gram Stain - Final TEST NOT PERFORMED 06/05/17 16:00 Blood Blood Culture - Final NO GROWTH AFTER 5 DAYS 06/05/17 16:00 Blood Gram Stain - Final TEST NOT PERFORMED 06/09/17 15:30 Naris MRSA Culture (Admit) - Final MRSA NOT DETECTED Most Recent Lab Values WBC 9.1 K/uL (4.8-10.8) 06/12/17 12:38 RBC 3.56 Mil/uL (4.40-5.90) L 06/12/17 12:38 Hgb 12.1 g/dL (12.0-18.0) 06/12/17 12:38 Hct 35.2 % (35.0-51.0) 06/12/17 12:38 MCV 98.7 fL (80.0-94.0) H 06/12/17 12:38 MCH 33.8 pg (27.0-31.0) H 06/12/17 12:38 MCHC 34.3 g/dL (33.0-37.0) 06/12/17 12:38 RDW 13.9 % (11.5-14.5) 06/12/17 12:38 Plt Count 232 K/uL (130-400) 06/12/17 12:38 MPV 7.5 fL (7.2-11.7) 06/12/17 12:38 Neut % (Auto) 78.6 % (50.0-75.0) H 06/12/17 12:38 Lymph % (Auto) 10.6 % (20.0-40.0) L 06/12/17 12:38 [place] % (Auto) 9.0 % (0.0-10.0) 06/12/17 12:38 Eos % (Auto) 1.5 % (0.0-4.0) 06/12/17 12:38 Baso % (Auto) 0.3 % (0.0-2.0) 06/12/17 12:38 Neut # 7.2 K/uL (1.8-7.0) H 06/12/17 12:38 Lymph # 1.0 K/uL (1.0-4.3) 06/12/17 12:38 [place] # 0.8 K/uL (0.0-0.8) 06/12/17 12:38 Eos # 0.1 K/uL (0.0-0.7) 06/12/17 12:38 Baso # 0.0 K/uL (0.0-0.2) 06/12/17 12:38 Neutrophils % (Manual) 90 % (50-75) H 06/09/17 06:52 Band Neutrophils % 3 % (0-2) H 06/07/17 07:13 Lymphocytes % (Manual) 5 % (20-40) L 06/09/17 06:52 Monocytes % (Manual) 5 % (0-10) 06/09/17 06:52 Platelet Estimate Normal (NORMAL) 06/09/17 06:52 Poikilocytosis (manual Slight 06/07/17 07:13 Ovalocytes Slight 06/09/17 06:52 ESR 45 mm/hr (0-15) H 06/06/17 21:49 PT 24.6 SECONDS (9.7-12.2) H D 06/12/17 08:27 INR 2.1 D 06/12/17 08:27 APTT 31 SECONDS (21-34) 06/05/17 16:05 Sodium 132 mmol/L (132-148) 06/12/17 12:38 Potassium 4.4 mmol/L (3.6-5.2) 06/12/17 12:38 Chloride 99 mmol/L (98-107) 06/12/17 12:38 Carbon Dioxide 27 mmol/L (22-30) 06/12/17 12:38 Anion Gap 11 (10-20) 06/12/17 12:38 BUN 31 mg/dL (9-20) H 06/12/17 12:38 Creatinine 1.8 mg/dL (0.8-1.5) H 06/12/17 12:38 Est GFR ( Amer) 45 06/12/17 12:38 Est GFR (Non-Af Amer) 38 06/12/17 12:38 Random Glucose 97 mg/dL (75-110) 06/12/17 12:38 Uric Acid 5.3 mg/dL (3.5-8.5) 06/07/17 07:13 Calcium 8.2 mg/dl (8.6-10.4) L 06/12/17 12:38 Phosphorus 3.8 mg/dL (2.5-4.5) 06/12/17 12:38 Magnesium 2.0 mg/dL (1.6-2.3) 06/12/17 12:38 Total Bilirubin 0.7 mg/dL (0.2-1.3) 06/12/17 12:38 Direct Bilirubin 0.3 mg/dL (0.0-0.4) 06/12/17 12:38 AST 25 U/L (17-59) 06/12/17 12:38 ALT 49 U/L (21-72) 06/12/17 12:38 Alkaline Phosphatase 80 U/L (38-126) 06/12/17 12:38 Total Protein 7.4 g/dL (6.3-8.3) 06/12/17 12:38 Albumin 3.8 g/dL (3.5-5.0) 06/12/17 12:38 Globulin 3.6 gm/dL (2.2-3.9) 06/12/17 12:38 Albumin/Globulin Ratio 1.0 (1.0-2.1) 06/12/17 12:38 Clinical Quality Measures - CQM - Heart Failure Ejection Fraction: Less Than 40 % Left Ventricular Function to be assessed after discharge: Yes NAYELI Inhibitor Prescribed: No Contraindication/Reason for not providing: acute renal insufficiency Beta-Lee Prescribed: Metoprolol Succinate Angiotensin II Receptor Lee Prescribed: No Contraindication/Reason for not providing: acute renal insufficiency AnticoagulationTherapy for Atrial Fibrillation/Atrialflutter: Yes Aldosterone Antagonist Prescribed: No Contraindication/Reason for not providing: acute renal insufficiency Hydralazine Nitrate Prescribed: No Contraindication/Reason for not providing: not clinically indicated Implantable Cardioverter Defibrillator Therapy: Yes Cardiac Resynchronization Therapy Prescribed: No Contraindication/Reason for not providing: not clinically indicated Will be discharged to: Home Follow Up Date (must be within 7 days from discharge): 06/19/17 Follow Up Time: 09:00 - Date & Time of Discharge Summary Date of Discharge Summary: 06/12/17 Time of Discharge Summary: 13:16 Attending/Attestation - Attestation I have personally seen and examined this patient.: Yes I have fully participated in the care of the patient.: Yes I have reviewed all pertinent clinical information, including history, physical exam and plan: Yes Notes (Text): Hospitalist Covering Dr. Chu's service. patient's primary medical doctor is away until 06/19. Patient with history of Marfan's syndrome, congestive heart failure, bioprostethic Mitral Valve on Coumadin, Hx of ACID, CAD, chronic atrial fibrillation, acute gouty arthritis, infected ulcer of the right big toe, cellulitis of the right lower extremity for workup underwent hospitalization for acute osteomyelitis. Podiatry and infectious disease on board and workup in progress for right hallux ulceration, right foot edema, and underlying cellulitis. Patient's right foot wound culture resulted today showing Staph Aureus. Discussed with ID, recommended for Ciprofloxcin 250mg PO BID for 2 weeks and will to follow-up with PMD: Dr. Chu to determine if patient to continue Cipro for additional course. Patient advised to take Coumadin 4mg PO once tonight given INR decreased from 2.9 to 2.1 and resume his Coumadin as prescribed and to follow-up in the office in 1 week for INR check. Discharge order and discharge instructions discussed with resident. 1. Patient to take antibiotics as prescribed: Ciprofloxocin 250mg PO BID for 2 weeks; must follow-up with ID and PMD to see if needs continued abx 2. Visiting home care nurses for wound care script provided for the patient 3. Script for PT eval and treatment given for the patient 4. Continue Coumadin as previously prescribed. Will need to follow-up in one week for INR check 5. Will need to monitor labs weekly (CBC, CMP, INR) per ID, while on antibiotic 6. Renal US completed, will need to f/u official report when he follows with Dr. Chu. 7. F/U with Dr Teresa in [address] Chu within [address] Chu, PMD, in regards to patient's discharge today in light of ID recommendation from the hospital and affirms for patient to follow-up in his office within one week. Assessment/Plan (1) Acute osteomyelitis Status: Acute * Infectious Disease: Dr Sanya Teresa-->help appreciated * Podiatry: Dr. Mora-->help appreciated * X-rays results- no fracture, no degenerative changes noted * triphasic bone scan IMPRESSION:Positive 3 phase bone scan for acute osseous process/ osteomyelitis right 1st digit. * Per discharge, ID recommends Ciprofloxocin 250mg PO BID for 2 weeks; must follow-up with ID and PMD to see if needs continued abx and have lab work drawn while on antibiotic * Wound culture of Right foot: MSSA (2) Cellulitis Status: Improving * See #1. (3) CHF (congestive heart failure)-->Chronic Status: Chronic * On beta-lee (Toprol XL). on Lasix. Will need to f/u with PMD in regards to starting nayeli/arb/statin. Patient has mild renal insufficiency. will hold these medications. Patient to f/u with PMD in one week * Has AICD * Has completed echocardiogram 07/22/16; EF: 30-35% (4) History of automatic internal cardiac defibrillator (AICD)-->Chronic History of chronic atrial fibrillation-->Chronic Status: Chronic * On beta-lee, Coumadin, and Amiodarone (5) History of mitral valve replacement with bioprosthetic valve Status: Chronic * resume Coumadin 4mg PO tonight, and will need to f/u with PMD for f/u INR
[2017-06-12 13:26] LABS: PHOSPHOROUS 3.8 mg/dL (2.5-4.5)
[2017-06-12 16:27] VITALS: BP 99/61; PULSE 70; TEMP 97.7; O2SAT 97
== END 2017-06-12 18:10 | disposition home health service (06) | DRG 540 ==
LOC: C.ER 14:59 → C.9E 16:35 → C.3T 17:34
PROVIDERS: ADMIT Hospitalist; ATTEND Hospitalist
DX: M86.171 Other acute osteomyelitis, right ankle and foot (principal); L03.115 Cellulitis of right lower limb; I48.2 Chronic atrial fibrillation; I50.9 Heart failure, unspecified; I11.0 Hypertensive heart disease with heart failure; M77.30 Calcaneal spur, unspecified foot; L97.519 Non-pressure chronic ulcer of other part of right foot with unspecified severity; M10.9 Gout, unspecified; N28.9 Disorder of kidney and ureter, unspecified; N40.0 Benign prostatic hyperplasia without lower urinary tract symptoms; R79.1 Abnormal coagulation profile; F03.90 Unspecified dementia, unspecified severity, without behavioral disturbance, psychotic disturbance, mood disturbance, and anxiety; B95.61 Methicillin susceptible Staphylococcus aureus infection as the cause of diseases classified elsewhere; I25.10 Atherosclerotic heart disease of native coronary artery without angina pectoris; Z79.01 Long term (current) use of anticoagulants; Z80.0 Family history of malignant neoplasm of digestive organs; Z80.3 Family history of malignant neoplasm of breast; Z83.3 Family history of diabetes mellitus; Z87.891 Personal history of nicotine dependence; Z88.0 Allergy status to penicillin; Z95.3 Presence of xenogenic heart valve; Z95.810 Presence of automatic (implantable) cardiac defibrillator; Z98.61 Coronary angioplasty status

== ENCOUNTER 2018-06-27 08:39 | Inpatient (IN) | payer MEDICARE ==
[2018-06-27 08:39] VITALS: PULSE 69
--- NOTE | 2018-06-27 09:11 | C.PDOC ---
History Of Present Illness 68 y/o male with a PMHx of CAD, s/p coronary stents and mitral valve replacement, CHF, A Fib (on coumadin), presents to the ED with complaints of SOB for the past 3-4 days, worse with exertion. Patient also reports pressure to his chest yesterday, none today. He also complaining of lower leg swelling, which decreases with lasix. Denies any current swelling. Otherwise patient denies any fever, chills, night sweats, cough, urinary complaints, or abdominal pain. He notes explosive diarrhea for 1 month, but no recent antibiotics. Patient is not in a correction. He reports he fell onto his right thigh 1 week ago, denies head trauma. Now complaining of bruising to the leg. Denies any difficulty ambulating. Last stress test and echocardiogram were 1 year ago. Cardiology- Dr. Tovar PMD- Dr. Chu Time Seen by Provider: 06/27/18 09:11 Chief Complaint (Nursing): Shortness Of Breath History Per: Patient History/Exam Limitations: no limitations Onset/Duration Of Symptoms: Days Current Symptoms Are (Timing): Still Present Past Medical History Reviewed: Historical Data, Nursing Documentation, Vital Signs Vital Signs: Last Vital Signs Temp 97.7 F 06/27/18 08:45 Pulse 70 06/27/18 08:45 Resp 22 06/27/18 08:45 BP 130/83 06/27/18 08:45 Pulse Ox 97 06/27/18 08:45 - Medical History PMH: Arthritis (R KNEE VALGUS), Atrial Fibrillation, Benign Prostatic Hyperplasia, CAD, Cardiac Aneurysm (aortic), CHF, Gall Bladder Disease, HTN, Mitral Valve Prolapse Surgical History: Coronary Stent, Pacemaker - [facility] DRAINAGE OF GALLBLADDER WITH DRAINAGE DEVICE, PERC APPROACH (07/20/16) FLUOROSCOPY OF GALLBLADDER USING LOW OSMOLAR CONTRAST (08/28/16) Family History: States: Unknown Family Hx - Social History Hx Tobacco Use: No Hx Alcohol Use: No Hx Substance Use: No - Immunization History Hx Tetanus Toxoid Vaccination: Yes Hx Influenza Vaccination: Yes Hx Pneumococcal Vaccination: Yes Review Of Systems Constitutional: Negative for: Fever, Chills, Sweats Eyes: Negative for: Vision Change ENT: Negative for: Nose Congestion Cardiovascular: Negative for: Palpitations Respiratory: Positive for: Shortness of Breath, SOB with Excertion. Negative for: Cough, Hemoptysis Gastrointestinal: Negative for: Nausea, Vomiting, Diarrhea Neurological: Negative for: Weakness, Headache, Dizziness Physical Exam - Physical Exam Appears: Well, Non-toxic, No Acute Distress Skin: Warm, Dry Head: Normacephalic Eye(s): bilateral: Normal Inspection, PERRL, EOMI Oral Mucosa: Moist Neck: Trachea Midline, Supple, Other (No meningeal signs- negative kernig's and brudzinskis) Chest: Other (sternotomy scar, no erythema or crepitus) Cardiovascular: Rhythm Regular, No Friction Rub Respiratory: No Rales, No Rhonchi, No Wheezing Gastrointestinal/Abdominal: Soft, No Tenderness, No Distention Extremity: No Tenderness, Capillary Refill (less than 2 sec) Extremity: Right: Other (Right lateral thigh: three contusions, 1 cm each, improved from previous per ; Neurovascularly intact), Bilateral: Normal ROM (with full active and passive ROM of lower extremities) Pulses: Left Dorsalis Pedis: Normal, Right Dorsalis Pedis: Normal Neurological/Psych: Oriented x3 Gait: Steady ED Course And Treatment - Laboratory Results Result Diagrams: 06/27/18 09:24 06/27/18 09:24 O2 Sat by Pulse Oximetry: 97 (RA) Pulse Ox Interpretation: Normal - Other Rad CXR X-Ray: Read By Radiologist Interpretation: Accession No. : [id number]. Patient Name / ID : JSOEPH FARIAS / [id number]. Exam Date : 06/27/2018 09:27:06 ( Approved ). Study Comment : Sex / Age : M / 68Y. Creator : Qi Dove. Dictator : Qi Dove. Washery Engineer : Retirement Plan Counselor : Qi Moura. Approver2 : Report Date : 06/27/2018 09:51:35. My Comment : *. Date of service: 06/27/2018. HISTORY: sob. COMPARISON: 06/05/2017. TECHNIQUE: Chest PA and lateral. FINDINGS: LUNGS: Lung volumes well inflated. Prominent bilateral nipple shadows as before. No interval c onsolidation. PLEURA: No significant pleural effusion identified. No pneumothorax apparent. CARDIOVASCULAR: There is presence of aortic atherosclerotic calcification on x-ray. Tortuous thoracic aorta-as before midline sternotomy wires grossly intact and valvular prosthesis in place. Position/ configuration of pacemaker\AICD device: Satisfactory. Cardiomegaly-as before No significant appearing pulmonary venous congestion. OSSEOUS STRUCTURES: Midline sternotomy. Thoracic spondylosis. Limited visualization of the thoraco lumbar vertebrae. VISUALIZED UPPER ABDOMEN: Normal. OTHER FINDINGS: None. IMPRESSION: No interval acute cardiopulmonary pathology noted. Other findings as above. Medical Decision Making Medical Decision Makin68 y/o male with a PMHx of CAD, s/p coronary stents and mitral valve replacement, CHF, A Fib (on coumadin), presents to the ED with complaints of SOB for the past 3-4 days, worse with exertion. Patient also reports pressure to his chest yesterday, none today. Likely CHF exacerbation vs mitral valve issue given TRIMBLE, orthopnea. Initial Plan: --Blood work --Urinalysis --Stool culture --Flu swab 1155 BNP elevated, lasix ordered otherwise labs, imaging unremarkable Will likely require echo - worsening CHF appreciate consult w/ DR. Chu: to admit to his service pt in NAD, agreeable to plan. Disposition - Disposition Disposition Time: 11:40 Condition: GOOD Forms: [facility] (Croatian) - Clinical Impression Clinical Impression: CHF (congestive heart failure) - Scribe Statement The provider has reviewed the documentation as recorded by the Laurent Nassar Provider Attestation: All medical record entries made by the Devonibjorge were at my direction and personally dictated by me. I have reviewed the chart and agree that the record accurately reflects my personal performance of the history, physical exam, medical decision making, and the department course for this patient. I have also personally directed, reviewed, and agree with the discharge instructions and disposition.
[2018-06-27 09:43] LABS: BASO # 0.1 K/uL (0.0-0.2); BASO % 1.1 % (0.0-2.0); EOS # 0.1 K/uL (0.0-0.7); EOS % 1.3 % (0.0-4.0); HEMOGLOBIN 11.7 g/dL (12.0-18.0); LYMPH # 0.9 K/uL (1.0-4.3); MEAN CELL VOLUME 99.4 fL (80.0-94.0); MEAN CORPUSCULAR HEMOGLOBIN 33.7 pg (27.0-31.0); MEAN CORPUSCULAR HGB CONC 33.9 g/dL (33.0-37.0); MEAN PLATELET VOLUME 8.4 fL (7.2-11.7); MONO # 0.5 K/uL (0.0-0.8); MONO % 7.6 % (0.0-10.0); NEUT # 5.7 K/uL (1.8-7.0); RBC 3.47 Mil/uL (4.40-5.90); RED CELL DISTRIBUTION WIDTH 14.4 % (11.5-14.5); WHITE BLOOD COUNT 7.2 K/uL (4.8-10.8)
--- NOTE | 2018-06-27 09:55 | RAD ---
Date of service: 06/27/2018 HISTORY: sob COMPARISON: 06/05/2017 TECHNIQUE: Chest PA and lateral FINDINGS: LUNGS: Lung volumes well inflated. Prominent bilateral nipple shadows as before. No interval consolidation PLEURA: No significant pleural effusion identified. No pneumothorax apparent. CARDIOVASCULAR: There is presence of aortic atherosclerotic calcification on x-ray. Tortuous thoracic aorta-as before midline sternotomy wires grossly intact and valvular prosthesis in place. Position/ configuration of pacemaker Cardiomegaly-as before No significant appearing pulmonary venous congestion. OSSEOUS STRUCTURES: Midline sternotomy. Thoracic spondylosis. Limited visualization of the thoraco lumbar vertebrae VISUALIZED UPPER ABDOMEN: Normal. OTHER FINDINGS: None. IMPRESSION: No interval acute cardiopulmonary pathology noted. Other findings as above.
[2018-06-27 10:00] LABS: ALB/GLOB RATIO 1.6 (1.0-2.1); ALBUMIN 4.4 g/dL (3.5-5.0)
[2018-06-27 10:03] LABS: TROPONIN I 0.025 ng/mL (0.00-0.120)
[2018-06-27 11:01] LABS: URINE BILIRUBIN NEGATIVE (NEGATIVE); URINE BLOOD NEGATIVE (NEGATIVE); URINE CLARITY Clear (Clear); URINE COLOR Yellow (YELLOW); URINE GLUCOSE (UA) NORMAL (Normal); URINE LEUKOCYTE ESTERASE NEG Leu/uL (Negative); URINE PROTEIN NEGATIVE (NEGATIVE); URINE UROBILINOGEN NORMAL mg/dL (0.2-1.0)
--- NOTE | 2018-06-27 14:47 | CARD ---
APPROVED REPORT Date of service: 06/27/2018 EKG Measurement Heart [id number] <Conclusion> AV dual-paced rhythm with occasional ventricular-paced complexes Abnormal ECG
[2018-06-27] MEDS: Metoprolol Succinate 25 mg XL Tab PO SCH (18:59)
[2018-06-27] MEDS: Lactobacillus Acidophilus 500 MU Cap PO SCH (19:00)
[2018-06-27] MEDS: buPROPion 150 mg/24 Hours XL Tab PO SCH (19:00)
[2018-06-27 20:10] LABS: INR 3.1; PROTHROMBIN TIME 34.4 SECONDS (9.7-12.2)
--- NOTE | 2018-06-28 00:21 | HP ---
HISTORY OF PRESENT ILLNESS: This is a 68-year-old male with history of multiple medical problems including gouty arthritis, paroxysmal atrial fibrillation, Marfan syndrome with aortic regurgitation, coronary artery disease status post PCI, presented to emergency room with symptoms of exertional shortness of breath with orthopnea that was noticed on the night before admission date. The patient was evaluated in the emergency room and he was found to have pulmonary congestion and proBNP of 10,400. The patient was admitted for further management. The patient denied to have any cough, fever, or any symptoms suggestive of respiratory infection. Other review of systems is negative. ALLERGIES: POSITIVE FOR PENICILLIN AND STATINS. SOCIAL HISTORY: No history of smoking, EtOH, or substance abuse. FAMILY HISTORY: Noncontributory. PAST MEDICAL HISTORY: As above. MEDICATIONS: Reviewed and ordered as per ALTHEA. PHYSICAL EXAMINATION: GENERAL: The patient is in bed, not in any cardiopulmonary distress at the time of this examination. VITAL SIGNS: Blood pressure 120/79, temperature 97.6, respiratory rate 20, and pulse 69. HEENT: Pupils equal, reactive to light. Normal appearing mucosa of the conjunctivae, oropharynx, and nasal membrane mucosa. NECK: Supple. No JVD. No carotid bruit. No lymph node. No thyromegaly. CHEST AND LUNGS: Bilateral symmetrical expansion. Good air exchange. No rales, no rhonchi. CARDIOVASCULAR SYSTEM: PMI not localized. S1, S2. No additional sounds. ABDOMEN: Normoactive bowel sounds. No tenderness. No organomegaly. No masses. EXTREMITIES: No cyanosis, no clubbing, no edema. SAFETY TEACHER: Alert, awake, oriented x3. No neurological deficits could be appreciated. ASSESSMENT: 1. Congestive heart failure, likely secondary to noncompliance to diet, fluid and salt restriction. 2. Coronary artery disease. 3. Hypertension. 4. Paroxysmal atrial fibrillation. 5. History of gouty arthritis. PLAN: Continue Lasix 20 mg IV push every 12 hours. Cardiology consult and follow recommendations and we will do echocardiogram. Cain Chu MD
[2018-06-28 06:57] LABS: INR 2.8; PROTHROMBIN TIME 30.9 SECONDS (9.7-12.2)
[2018-06-28] MEDS: buPROPion 150 mg/24 Hours XL Tab PO SCH (10:14)
[2018-06-28] MEDS: Lactobacillus Acidophilus 500 MU Cap PO SCH ×2 (10:14→17:21)
[2018-06-28] MEDS: Metoprolol Succinate 25 mg XL Tab PO SCH (10:14)
[2018-06-28] MEDS ORDERED: Sodium Chloride 0.9% 250 ML IV ONE (13:30)
--- NOTE | 2018-06-28 15:28 | CP.PCM.CON ---
<Keysha Pelletier - Last Filed: 06/28/18 15:21> History of Present Illness - History of Present Illness History of Present Illness: Cardiology consult note 68 year old male with past medical history of CAD s/p stent, CHF, A fib on coumadin, hx of AICD, Marfan's syndorme, HTn, gout, BPH, MV replacement with bioprosthetic valve, gouty arthiritis is admitted for shortness of breath and LE swelling that began 2 days ago. Cardiology consulted for CHF exacerbation. Pt states that he developed LE swelling 1 week ago and started taking Lasixs without much relief. He then developed orthopenea the night before coming to hospital. Patient denied having any CP, F/C, abd pain, N/v/D/C, or recent il lnesses. Pt admits to being compliant with all of his medications. He does admit to eating a lot more salt lately. Pt noted to have episode of lightheadedness and hypotension this am while working with PT. Currently denies having any diziness, weakness, numbness or tingling. PMHx: stated above PSH: Open Appendectomy, Mitral valve replacement, Cardiac stents Meds - as per chart Allergy to PCN Review of Systems - Constitutional Constitutional: absent: Chills, Fever - EENT Eyes: absent: Blurred Vision, Change in Vision Nose/Mouth/Throat: absent: Nasal Congestion, Nasal Discharge - Cardiovascular Cardiovascular: Dyspnea, Pedal Edema. absent: Chest Pain - Respiratory Respiratory: Dyspnea. absent: Cough, Dyspnea on Exertion, Wheezing, Chest Congestion, Pain with Coughing - Gastrointestinal Gastrointestinal: absent: Abdominal Pain, Constipation, Diarrhea, Nausea, Vomiting - Musculoskeletal Musculoskeletal: absent: Back Pain, Joint Swelling - Integumentary Integumentary: absent: Acne, Lesions, Rash - Neurological Neurological: absent: Confusion, Dizziness - Psychiatric Psychiatric: absent: Anxiety, Confusion, Depression Past Patient History - Infectious Disease Hx of Infectious Diseases: None - Past Medical History & Family History Past Medical History?: Yes - Past Social History Smoking Status: Former Smoker - CARDIAC Hx Cardiac Disorders: Yes (A fib, cardiac aneurysm) Hx Congestive Heart Failure: Yes Hx Hypertension: Yes - PULMONARY Hx Respiratory Disorders: No - NEUROLOGICAL Hx Neurological Disorder: No - HEENT Hx HEENT Problems: Yes Hx Cataracts: Yes - RENAL Hx Chronic Kidney Disease: No - ENDOCRINE/METABOLIC Hx Endocrine Disorders: No - HEMATOLOGICAL/ONCOLOGICAL Hx Blood Disorders: No - INTEGUMENTARY Hx Dermatological Problems: Yes Other/Comment: right great toe red and swollen - MUSCULOSKELETAL/RHEUMATOLOGICAL Hx Arthritis: Yes - GASTROINTESTINAL Hx Gastrointestinal Disorders: Yes Hx Gall Bladder Disease: Yes Hx Irritable Bowel: Yes - GENITOURINARY/GYNECOLOGICAL Hx Genitourinary Disorders: Yes Hx Prostate Problems: Yes - PSYCHIATRIC Hx Substance Use: No - SURGICAL HISTORY Hx Surgeries: Yes Hx Coronary Stent: Yes Hx Open Heart Surgery: Yes - ANESTHESIA Hx Anesthesia: Yes Hx Anesthesia Reactions: No Hx Malignant Hyperthermia: No Meds Allergies/Adverse Reactions: Allergies Allergy/AdvReac Type Severity Reaction Status Date / Time Penicillins Allergy Severe ANAPHYLAXIS Verified 06/27/18 08:49 statins AdvReac Intermediate FATIGUE Uncoded 06/27/18 08:49 - Medications Medications: Current Medications Allopurinol (Zyloprim) 100 mg PO BID [facility] Last Admin: 06/28/18 10:14 Dose: 100 mg Amiodarone HCl (Cordarone) 200 mg PO DAILY [facility] Last Admin: 06/28/18 10:14 Dose: 200 mg Bupropion HCl (Wellbutrin Xl) 300 mg PO DAILY [facility] Last Admin: 06/28/18 10:14 Dose: 300 mg Donepezil HCl (Aricept) 10 mg PO DAILY [facility] Last Admin: 06/28/18 10:22 Dose: 10 mg Finasteride (Proscar) 5 mg PO DAILY [facility] Last Admin: 06/28/18 10:14 Dose: 5 mg Furosemide (Lasix) 20 mg IVP Q12 [facility] Last Admin: 06/28/18 10:13 Dose: 20 mg Gabapentin (Neurontin) 300 mg PO DAILY [facility] Last Admin: 06/28/18 10:14 Dose: 300 mg Sodium Chloride (Sodium Chloride 0.9%) 250 mls @ 75 mls/hr IV .Q3H20M ONE Stop: 06/28/18 16:49 Lactobacillus Acidophilus (Bacid Acidophilus) 1 cap PO BID [facility] Last Admin: 06/28/18 10:14 Dose: 1 cap Metoprolol Succinate (Toprol Xl) 25 mg PO DAILY [facility] Last Admin: 06/28/18 10:14 Dose: 25 mg Tamsulosin HCl (Flomax) 0.4 mg PO DAILY [facility] Last Admin: 06/28/18 10:14 Dose: 0.4 mg Physical Exam - Constitutional Appears: Non-toxic, No Acute Distress - Head Exam Head Exam: ATRAUMATIC, NORMOCEPHALIC - Eye Exam Eye Exam: EOMI - ENT Exam ENT Exam: Mucous Membranes Moist - Respiratory Exam Respiratory Exam: Clear to Auscultation Bilateral. absent: Accessory Muscle Use, Rales, Rhonchi, Wheezes, Respiratory Distress - Cardiovascular Exam Cardiovascular Exam: REGULAR RHYTHM, +S1, +S2. absent: Diastolic murmur, Gallop, Rubs, Systolic Murmur - GI/Abdominal Exam GI & Abdominal Exam: absent: Distended, Firm, Guarding - Extremities Exam Extremities exam: Negative for: pedal edema, tenderness - Neurological Exam Neurological exam: Alert, Oriented x3 - Psychiatric Exam Psychiatric exam: Normal Affect, Normal Mood - Skin Skin Exam: Dry, Intact, Normal Color, Warm Results - Vital Signs Recent Vital Signs: Last Vital Signs Temp 98.1 F 06/28/18 07:00 Pulse 70 06/28/18 07:00 Resp 20 06/28/18 07:00 BP 104/67 06/28/18 10:13 Pulse Ox 95 06/28/18 07:00 - Labs Result Diagrams: 06/27/18 09:24 06/27/18 09:24 Labs: Laboratory Results - last 24 hr 06/27/18 06/28/18 19:35 06:40 PT 34.4 H 30.9 H INR 3.1 H* 2.8 APTT 50 H Assessment & Plan - Assessment and Plan (Free Text) Assessment: 68 year old male with PMHx of CAD s/p stent, CHF, A fib on coumadin, hx of AICD, Marfan's syndorme, HTN, gout, BPH, MV replacement with bioprosthetic valve, gouty arthiritis is admitted for CHf exacerbation. [place] admission [place] [address]. CHf exacerbation - Continue lasixs. Dose decreased to 20 IVP QD due to recent hypotensive episode - Echo done this am. report pending Hypotensive episode - currently receiving gentle IV hydration with NS at 75. - will decrease dose of lasixs to 20 IVP qd HTN - Continue lasixs, toprol XL 25 qd A fib - ChadsVasc score of >2 - Continue amiodarone. - Continue coumadin once INR in therapeutic range MV replacement - Stable Case discussed with Dr. Tovar - Date & Time Date: 06/28/18 Time: 15:30 <Cosme Tovar - Last Filed: 06/29/18 21:01> Meds - Medications Medications: Current Medications Allopurinol (Zyloprim) 100 mg PO BID [facility] Last Admin: 06/29/18 18:15 Dose: 100 mg Amiodarone HCl (Cordarone) 200 mg PO DAILY [facility] Last Admin: 06/29/18 10:19 Dose: 200 mg Bupropion HCl (Wellbutrin Xl) 300 mg PO DAILY [facility] Last Admin: 06/29/18 14:12 Dose: 300 mg Donepezil HCl (Aricept) 10 mg PO DAILY [facility] Last Admin: 06/29/18 10:26 Dose: 10 mg Finasteride (Proscar) 5 mg PO DAILY [facility] Last Admin: 06/29/18 10:20 Dose: 5 mg Furosemide (Lasix) 20 mg IVP DAILY [facility] Last Admin: 06/29/18 10:21 Dose: 20 mg Gabapentin (Neurontin) 300 mg PO DAILY [facility] Last Admin: 06/29/18 10:19 Dose: 300 mg Lactobacillus Acidophilus (Bacid Acidophilus) 1 cap PO BID [facility] Last Admin: 06/29/18 18:15 Dose: 1 cap Metoprolol Succinate (Toprol Xl) 25 mg PO DAILY [facility] Last Admin: 06/29/18 10:19 Dose: 25 mg Tamsulosin HCl (Flomax) 0.4 mg PO DAILY [facility] Last Admin: 06/29/18 10:17 Dose: 0.4 mg Results - Vital Signs Recent Vital Signs: Last Vital Signs Temp 98.1 F 06/29/18 15:00 Pulse 70 06/29/18 16:15 Resp 20 06/29/18 15:00 BP 139/44 L 06/29/18 15:00 Pulse Ox 97 06/29/18 15:00 - Labs Result Diagrams: 06/29/18 06:29 06/29/18 06:29 Labs: Laboratory Results - last 24 hr 06/29/18 06/29/18 06/29/18 06:29 06:29 06:29 WBC 6.4 RBC 3.44 L Hgb 11.6 L Hct 34.2 L MCV 99.5 H MCH 33.6 H MCHC 33.8 RDW 14.2 Plt Count 208 MPV 7.8 Neut % (Auto) 67.0 Lymph % (Auto) 18.3 L [place] % (Auto) 9.7 Eos % (Auto) 3.7 Baso % (Auto) 1.3 Neut # (Auto) 4.3 Lymph # (Auto) 1.2 [place] # (Auto) 0.6 Eos # (Auto) 0.2 Baso # (Auto) 0.1 PT 31.4 H INR 2.9 Sodium 136 Potassium 4.0 Chloride 97 L Carbon Dioxide 35 H Anion Gap 8 L BUN 21 H Creatinine 1.6 H Est GFR ( Amer) 52 Est GFR (Non-Af Amer) 43 POC Glucose (mg/dL) Random Glucose 80 Calcium 8.6 Total Bilirubin 0.7 AST 34 ALT 33 Alkaline Phosphatase 91 Total Protein 6.3 Albumin 3.7 Globulin 2.6 Albumin/Globulin Ratio 1.4 06/29/18 11:20 WBC RBC Hgb Hct MCV MCH MCHC RDW Plt Count MPV Neut % (Auto) Lymph % (Auto) [place] % (Auto) Eos % (Auto) Baso % (Auto) Neut # (Auto) Lymph # (Auto) [place] # (Auto) Eos # (Auto) Baso # (Auto) PT INR Sodium Potassium Chloride Carbon Dioxide Anion Gap BUN Creatinine Est GFR ( Amer) Est GFR (Non-Af Amer) POC Glucose (mg/dL) 102 Random Glucose Calcium Total Bilirubin AST ALT Alkaline Phosphatase Total Protein Albumin Globulin Albumin/Globulin Ratio Assessment & Plan - Assessment and Plan (Free Text) Plan: Patient seen and personally evaluated by me Plan of care d/w the resident and as documented
[2018-06-29 00:42] VITALS: RESP 20
[2018-06-29 06:38] LABS: BASO # 0.1 K/uL (0.0-0.2); BASO % 1.3 % (0.0-2.0); EOS # 0.2 K/uL (0.0-0.7); EOS % 3.7 % (0.0-4.0); HEMOGLOBIN 11.6 g/dL (12.0-18.0); LYMPH # 1.2 K/uL (1.0-4.3); LYMPH % 18.3 % (20.0-40.0); MEAN CELL VOLUME 99.5 fL (80.0-94.0); MEAN CORPUSCULAR HEMOGLOBIN 33.6 pg (27.0-31.0); MEAN CORPUSCULAR HGB CONC 33.8 g/dL (33.0-37.0); MEAN PLATELET VOLUME 7.8 fL (7.2-11.7); MONO # 0.6 K/uL (0.0-0.8); MONO % 9.7 % (0.0-10.0); NEUT # 4.3 K/uL (1.8-7.0); RBC 3.44 Mil/uL (4.40-5.90); RED CELL DISTRIBUTION WIDTH 14.2 % (11.5-14.5); WHITE BLOOD COUNT 6.4 K/uL (4.8-10.8)
[2018-06-29 06:48] LABS: INR 2.9; PROTHROMBIN TIME 31.4 SECONDS (9.7-12.2)
[2018-06-29 07:40] LABS: ALB/GLOB RATIO 1.4 (1.0-2.1); ALBUMIN 3.7 g/dL (3.5-5.0); CALCIUM 8.6 mg/dl (8.6-10.4)
--- NOTE | 2018-06-29 09:40 | PN ---
DATE: 06/28/2018This is a late entry for progress note done on 06/28/2018. SUBJECTIVE: The patient was feeling dizzy as he stood up. PHYSICAL EXAMINATION: VITAL SIGNS: Blood pressure 95/60, temperature 97.3, respiratory rate 18, and pulse 74. HEENT: Pupils equal, reactive to light. Normal-appearing mucosa of the conjunctivae, oropharynx, and nasal membrane mucosa. NECK: Supple. No JVD. No carotid bruit. No lymph node. No thyromegaly. CHEST AND LUNGS: Bilateral symmetrical expansion. Good air exchange. Bilateral basilar rales. CARDIOVASCULAR SYSTEM: PMI not localized. S1, S2. No additional sounds. ABDOMEN: Normoactive bowel sounds. No tenderness. No organomegaly. No masses. EXTREMITIES: No cyanosis, no clubbing, no edema. CENTRAL NERVOUS SYSTEM: Alert, awake, oriented x2. No neurological deficit can be appreciated. ASSESSMENT: 1. Exacerbation of congestive heart failure. 2. Paroxysmal atrial fibrillation. 3. History of aortic regurgitation. 4. Marfan syndrome. PLAN: We will continue Lasix and follow cardiology recommendations. Monitor INR, and order warfarin as needed. Cain Chu MD
[2018-06-29] MEDS: Metoprolol Succinate 25 mg XL Tab PO SCH (10:19)
[2018-06-29] MEDS: Lactobacillus Acidophilus 500 MU Cap PO SCH ×2 (10:20→18:15)
[2018-06-29] MEDS: buPROPion 150 mg/24 Hours XL Tab PO SCH (14:12)
--- NOTE | 2018-06-29 21:02 | CP.PCM.PN ---
Subjective - Date & Time of Evaluation Date of Evaluation: 06/29/18 Time of Evaluation: 17:20 - Subjective Subjective: Patient seen and evaluated Feels better Wants to go home Review of Systems - Constitutional Constitutional: absent: Chills, Fever - EENT Eyes: absent: Blurred Vision, Change in Vision Nose/Mouth/Throat: absent: Nasal Congestion, Nasal Discharge - Cardiovascular Cardiovascular: Dyspnea, Pedal Edema. absent: Chest Pain - Respiratory Respiratory: Dyspnea. absent: Cough, Dyspnea on Exertion, Wheezing, Chest Congestion, Pain with Coughing - Gastrointestinal Gastrointestinal: absent: Abdominal Pain, Constipation, Diarrhea, Nausea, Vomiting - Musculoskeletal Musculoskeletal: absent: Back Pain, Joint Swelling - Integumentary Integumentary: absent: Acne, Lesions, Rash - Neurological Neurological: absent: Confusion, Dizziness - Psychiatric Psychiatric: absent: Anxiety, Confusion, Depression Physical Exam - Constitutional Appears: Non-toxic, No Acute Distress - Head Exam Head Exam: ATRAUMATIC, NORMOCEPHALIC - Eye Exam Eye Exam: EOMI - ENT Exam ENT Exam: Mucous Membranes Moist - Respiratory Exam Respiratory Exam: Clear to Auscultation Bilateral. absent: Accessory Muscle Use, Rales, Rhonchi, Wheezes, Respiratory Distress - Cardiovascular Exam Cardiovascular Exam: REGULAR RHYTHM, +S1, +S2. absent: Diastolic murmur, Gallop, Rubs, Systolic Murmur - GI/Abdominal Exam GI & Abdominal Exam: absent: Distended, Firm, Guarding - Extremities Exam Extremities exam: Negative for: pedal edema, tenderness - Neurological Exam Neurological exam: Alert, Oriented x3 - Psychiatric Exam Psychiatric exam: Normal Affect, Normal Mood - Skin Skin Exam: Dry, Intact, Normal Color, Warm Objective - Vital Signs/Intake and Output Vital Signs (last 24 hours): Temp Pulse Resp BP Pulse Ox 98.1 F 70 20 139/44 L 97 06/29/18 15:00 06/29/18 16:15 06/29/18 15:00 06/29/18 15:00 06/29/18 15:00 - Medications Medications: Current Medications Allopurinol (Zyloprim) 100 mg PO BID [facility] Last Admin: 06/29/18 18:15 Dose: 100 mg Amiodarone HCl (Cordarone) 200 mg PO DAILY [facility] Last Admin: 06/29/18 10:19 Dose: 200 mg Bupropion HCl (Wellbutrin Xl) 300 mg PO DAILY [facility] Last Admin: 06/29/18 14:12 Dose: 300 mg Donepezil HCl (Aricept) 10 mg PO DAILY [facility] Last Admin: 06/29/18 10:26 Dose: 10 mg Finasteride (Proscar) 5 mg PO DAILY [facility] Last Admin: 06/29/18 10:20 Dose: 5 mg Furosemide (Lasix) 20 mg IVP DAILY [facility] Last Admin: 06/29/18 10:21 Dose: 20 mg Gabapentin (Neurontin) 300 mg PO DAILY [facility] Last Admin: 06/29/18 10:19 Dose: 300 mg Lactobacillus Acidophilus (Bacid Acidophilus) 1 cap PO BID [facility] Last Admin: 06/29/18 18:15 Dose: 1 cap Metoprolol Succinate (Toprol Xl) 25 mg PO DAILY [facility] Last Admin: 06/29/18 10:19 Dose: 25 mg Tamsulosin HCl (Flomax) 0.4 mg PO DAILY [facility] Last Admin: 06/29/18 10:17 Dose: 0.4 mg - Labs Labs: 06/29/18 06:29 06/29/18 06:29 PT 31.4 SECONDS (9.7-12.2) H 06/29/18 06:29 INR 2.9 06/29/18 06:29 APTT 50 SECONDS (21-34) H 06/27/18 19:35 Assessment and Plan - Assessment and Plan (Free Text) Assessment: 68 year old male with PMHx of CAD s/p stent, CHF, A fib on coumadin, hx of AICD, Marfan's syndorme, HTN, gout, BPH, MV replacement with bioprosthetic valve, gouty arthiritis is admitted for CHf exacerbation. [place] [id number]. CHf exacerbation - Continue lasixs. Dose decreased to 20 IVP QD due to recent hypotensive episode - Echo done this am. report pending Hypotensive episode - currently receiving gentle IV hydration with NS at 75. - will decrease dose of lasixs to 20 IVP qd HTN - Continue lasixs, toprol XL 25 qd A fib - ChadsVasc score of >2 - Continue amiodarone. - Continue coumadin once INR in therapeutic range MV replacement - Stable
--- NOTE | 2018-06-30 01:14 | PN ---
DATE: 06/29/2018 SUBJECTIVE: The patient is seen today, 06/29/2018. He is still having exertional shortness of breath, and his blood pressure was dropping when he was given Lasix. PHYSICAL EXAMINATION: VITAL SINGS: Blood pressure 139/44, pulse 70. HEENT: Pupils equal, reactive to light. Normal-appearing mucosa of the conjunctivae, oropharynx, and nasal membrane mucosa. NECK: Supple. No JVD. No carotid bruit. No lymph node. No thyromegaly. CHEST AND LUNGS: Bilateral symmetrical expansion. Good air exchange. No rales. No rhonchi. CARDIOVASCULAR SYSTEM: PMI not localized. S1, S2. No additional sounds. ABDOMEN: Normoactive bowel sounds. No tenderness. No organomegaly. No masses. EXTREMITIES: No cyanosis, no clubbing, no edema. CENTRAL NERVOUS SYSTEM: Alert, awake, oriented x2. No neurological deficit could be appreciated. ASSESSMENT: Congestive heart failure, status post first implantable cardioverter-defibrillator placement, aortic regurgitation, Marfan syndrome, and paroxysmal atrial fibrillation. PLAN: Continue current medications and give Lasix as needed. Follow cardiology recommendations. Cain Chu MD
[2018-06-30 08:33] LABS: INR 2.5; PROTHROMBIN TIME 26.9 SECONDS (9.7-12.2)
[2018-06-30 08:40] LABS: BASO # 0.1 K/uL (0.0-0.2); EOS # 0.2 K/uL (0.0-0.7); EOS % 3.6 % (0.0-4.0); HEMOGLOBIN 11.7 g/dL (12.0-18.0); LYMPH # 0.9 K/uL (1.0-4.3); LYMPH % 14.8 % (20.0-40.0); MEAN CORPUSCULAR HEMOGLOBIN 34.2 pg (27.0-31.0); MEAN CORPUSCULAR HGB CONC 34.5 g/dL (33.0-37.0); MEAN PLATELET VOLUME 8.2 fL (7.2-11.7); MONO # 0.6 K/uL (0.0-0.8); MONO % 9.5 % (0.0-10.0); NEUT # 4.5 K/uL (1.8-7.0); NEUT % 71.1 % (50.0-75.0); RBC 3.42 Mil/uL (4.40-5.90); RED CELL DISTRIBUTION WIDTH 14.2 % (11.5-14.5); WHITE BLOOD COUNT 6.4 K/uL (4.8-10.8)
[2018-06-30 09:00] LABS: ALB/GLOB RATIO 1.5 (1.0-2.1); ALBUMIN 3.8 g/dL (3.5-5.0); CALCIUM 8.8 mg/dl (8.6-10.4)
[2018-06-30] MEDS: buPROPion 150 mg/24 Hours XL Tab PO SCH (09:48)
[2018-06-30] MEDS: Metoprolol Succinate 25 mg XL Tab PO SCH (09:56)
[2018-06-30] MEDS: Lactobacillus Acidophilus 500 MU Cap PO SCH ×2 (09:56→17:17)
--- NOTE | 2018-06-30 12:58 | CARD ---
APPROVED REPORT Date of service: 06/28/2018 EXAM: Two-dimensional and M-mode echocardiogram with Doppler and color Doppler. Other Information Quality : GoodRhythm : INDICATION Atrial Fibrillation Cardiac Disease: CAD Congestive Heart Failure s/p coronary stent Surgery/Intervention Status/Post Mitral Valve Replacement: Pacemaker: RISK FACTORS Hypertension 2D DIMENSIONS IVSd1.5 (0.7-1.1cm)LVDd6.9 (3.9-5.9cm) PWd0.8 (0.7-1.1cm)LA [id number] (18-58mL) LVDs6.5 (2.5-4.0cm)FS (%) 5.0 % LVEF (%)20.0 (>50%)LVEF (Villegas's)24.17 % M-Mode DIMENSIONS Left Atrium (MM)4.21 (2.5-4.0cm)IVSd1.13 (0.7-1.1cm) Aortic Root4.98 (2.2-3.7cm)LVDd8.04 (4.0-5.6cm) Aortic Cusp Exc.2.25 (1.5-2.0cm)PWd0.75 (0.7-1.1cm) FS (%) 11 %LVDs7.14 (2.0-3.8cm) LVEF (%)23 (>50%) Aortic Valve AI P 1/2 [id number] Mitral Valve MV E Tmhkncxp543.5cm/sMV E Peak Gr.16mmHgMV E Mean Gr.5mmHg MV [id number]/A ratio0.0MVA (PHT)1.87cm2 TDI Lateral E' Peak V3.71cm/sMedial E' Peak V4.03cm/sE/Lateral E'39.8 E/Medial E'36.6 Tricuspid Valve TR Peak Wgnytnqh943mp/sTR Peak Gr.[id number] LEFT VENTRICLE The Left Ventricle is moderately dilated. There is normal left ventricular wall thickness. Left ventricle systolic function is severely impaired. The Ejection Fraction is <20%. There is global hypokinesis of the left ventricle. Not valid in presence of MVR Cannot rule out thrombus in left Ventricle. Please repeat with IV contrast There is no ventricular septal defect visualized. There is no left ventricular aneurysm. There is no mass noted in the left ventricle. RIGHT VENTRICLE The right ventricle is normal size. There is normal right ventricular wall thickness. The right ventricular systolic function is normal. There is a pacemaker lead in the right ventricle. ATRIA The left atrium is moderately dilated. The right atrium size is normal. The interatrial septum is intact with no evidence for an atrial septal defect. AORTIC VALVE The aortic valve is normal in structure and function. There is mild to moderate aortic regurgitation. There is no aortic valvular stenosis. There is no aortic valvular vegetation. MITRAL VALVE There is no evidence of mitral valve prolapse. There is no mitral valve stenosis. There is no mitral valve regurgitation noted. There is a bi-leaflet ([employer] Azael) mechanical prosthesis of the mitral valve. Doppler evidence of mitral regurgitation is normal for this valve. TRICUSPID VALVE The tricuspid valve is normal in structure and function. There is mild to moderate tricuspid regurgitation. Right ventricular systolic pressure is estimated at 40-50 mmHg. There is no tricuspid valve prolapse or vegetation. There is no tricuspid valve stenosis. PULMONIC VALVE The pulmonary valve is normal in structure and function. There is no pulmonic valvular regurgitation. There is no pulmonic valvular stenosis. GREAT VESSELS The aortic root is mildly to moderately enlarged. The ascending aorta is normal in size. The pulmonary artery is normal. The IVC is normal in size and collapses >50% with inspiration. PERICARDIAL EFFUSION The pericardium appears normal. There is no pleural effusion. <Conclusion> The Left Ventricle is moderately dilated. Left ventricle systolic function is severely impaired. The Ejection Fraction is <20%. Cannot rule out thrombus in left Ventricle. Please repeat with IV contrast The left atrium is moderately dilated. There is mild to moderate aortic regurgitation. There is a bi-leaflet (St[employer] Azael) mechanical prosthesis of the mitral valve. Doppler evidence of mitral regurgitation is normal for this valve. There is mild to moderate tricuspid regurgitation. Right ventricular systolic pressure is estimated at 40-50 mmHg. The aortic root is mildly to moderately enlarged.
--- NOTE | 2018-07-01 01:34 | PN ---
DATE: 06/30/2018 SUBJECTIVE: The patient is seen today, 06/30/2018. He is not in any cardiopulmonary distress. PHYSICAL EXAMINATION: VITAL SIGNS: The patient's blood pressure is 90/58, temperature 98, respiratory rate 20, and pulse 76. HEENT: Pupils equal, reactive to light. Normal-appearing mucosa of the conjunctivae, oropharynx and nasal membrane mucosa. NECK: Supple. No JVD. No carotid bruit. No lymph node. No thyromegaly. CHEST AND LUNGS: Bilateral symmetrical expansion. Good air exchange. No rales, no rhonchi. CARDIOVASCULAR SYSTEM: PMI not localized. S1, S2. No additional sounds. ABDOMEN: Normoactive bowel sounds. No tenderness. No organomegaly. No masses. EXTREMITIES: No cyanosis, no clubbing, no edema. CENTRAL NERVOUS SYSTEM: Alert, awake, oriented x2. No neurological deficit could be appreciated. LABORATORY DATA: Echocardiogram was done that showed left ventricle is moderately dilated with ejection fraction 20%, cannot rule out thrombus in the left ventricle. There is eulo-lw-blrcsxgr aortic regurgitation with bileaflet mechanical prosthesis of the mitral valves, [id number] tricuspid regurgitation. The right ventricular systolic pressure is 40-50 mmHg. ASSESSMENT: Congestive heart failure, ischemic cardiomyopathy status post implantable cardioverter defibrillator placement, pulmonary hypertension, status post mitral valve replacement. PLAN: Continue warfarin and Lasix as tolerated. Continue current treatment and follow Cardiology recommendations. Cain Chu MD
[2018-07-01 06:43] LABS: INR 2.1; PROTHROMBIN TIME 23.2 SECONDS (9.7-12.2)
[2018-07-01 09:34] VITALS: PULSE 68; TEMP 97.9; O2SAT 100
[2018-07-01] MEDS: buPROPion 150 mg/24 Hours XL Tab PO SCH (10:07)
[2018-07-01] MEDS: Metoprolol Succinate 25 mg XL Tab PO SCH (10:07)
[2018-07-01] MEDS: Lactobacillus Acidophilus 500 MU Cap PO SCH (10:07)
[2018-07-01 10:32] VITALS: BP 105/60
--- NOTE | 2018-07-01 12:50 | CP.PCM.PN ---
Subjective - Date & Time of Evaluation Date of Evaluation: 07/01/18 Time of Evaluation: 12:50 Objective - Vital Signs/Intake and Output Vital Signs (last 24 hours): Temp Pulse Resp BP Pulse Ox 97.9 F 68 20 105/60 100 07/01/18 07:00 07/01/18 07:00 07/01/18 07:00 07/01/18 10:28 07/01/18 07:00 Intake and Output: 07/01/18 07/01/18 06:59 18:59 Intake Total 320 Output Total 550 Balance -230 - Medications Medications: Current Medications Allopurinol (Zyloprim) 100 mg PO BID [facility] Last Admin: 07/01/18 10:08 Dose: 100 mg Amiodarone HCl (Cordarone) 200 mg PO DAILY [facility] Last Admin: 07/01/18 10:07 Dose: 200 mg Bupropion HCl (Wellbutrin Xl) 300 mg PO DAILY [facility] Last Admin: 07/01/18 10:07 Dose: 300 mg Donepezil HCl (Aricept) 10 mg PO DAILY [facility] Last Admin: 07/01/18 10:28 Dose: 10 mg Finasteride (Proscar) 5 mg PO DAILY [facility] Last Admin: 07/01/18 10:27 Dose: 5 mg Furosemide (Lasix) 20 mg IVP DAILY [facility] Last Admin: 07/01/18 10:28 Dose: 20 mg Gabapentin (Neurontin) 300 mg PO DAILY [facility] Last Admin: 07/01/18 10:08 Dose: 300 mg Lactobacillus Acidophilus (Bacid Acidophilus) 1 cap PO BID [facility] Last Admin: 07/01/18 10:07 Dose: 1 cap Metoprolol Succinate (Toprol Xl) 25 mg PO DAILY [facility] Last Admin: 07/01/18 10:07 Dose: 25 mg Tamsulosin HCl (Flomax) 0.4 mg PO DAILY [facility] Last Admin: 07/01/18 10:07 Dose: 0.4 mg - Labs Labs: 06/30/18 08:17 06/30/18 08:17 PT 23.2 SECONDS (9.7-12.2) H 07/01/18 06:23 INR 2.1 07/01/18 06:23 APTT 50 SECONDS (21-34) H 06/27/18 19:35 Assessment and Plan - Assessment and Plan (Free Text) Assessment: FOLLOW UP WITH DR BERRY IN 1-2 WEEKS ------CALL FOR APPOINTMENT FOLLOW UP WITH [facility] ----CALL FOR APPOINTMENT CONTINUE HOME MEDICATION ACTIVITY TOLERATED AND HOME PT PER RECOMMENDATION CALL DR BERRY OR GO TO THE EMERGENCY ROOM IF SYMPTOM RETURN OR WORSENING
== END 2018-07-01 16:10 | disposition home or self-care (01) | DRG 292 ==
LOC: C.ER 08:39 → C.9E 11:45 → C.6T 14:07
PROVIDERS: ADMIT Internal Medicine; ATTEND Internal Medicine
DX: I11.0 Hypertensive heart disease with heart failure (principal); Q87.418 Marfan syndrome with other cardiovascular manifestations; I50.9 Heart failure, unspecified; I25.10 Atherosclerotic heart disease of native coronary artery without angina pectoris; I25.5 Ischemic cardiomyopathy; I27.20 Pulmonary hypertension, unspecified; I48.0 Paroxysmal atrial fibrillation; K58.0 Irritable bowel syndrome with diarrhea; N40.0 Benign prostatic hyperplasia without lower urinary tract symptoms; M17.11 Unilateral primary osteoarthritis, right knee; W19.XXXD Unspecified fall, subsequent encounter; S70.11XD Contusion of right thigh, subsequent encounter; Z91.11 Patient's noncompliance with dietary regimen; Z79.01 Long term (current) use of anticoagulants; Z87.891 Personal history of nicotine dependence; Z95.810 Presence of automatic (implantable) cardiac defibrillator; Z95.5 Presence of coronary angioplasty implant and graft; Z95.4 Presence of other heart-valve replacement; I08.0 Rheumatic disorders of both mitral and aortic valves; Z88.0 Allergy status to penicillin

== ENCOUNTER 2018-08-02 11:49 | Inpatient (IN) | payer MEDICARE ==
[2018-08-02 11:50] VITALS: PULSE 69
[2018-08-02 11:55] VITALS: BMI 20.8
--- NOTE | 2018-08-02 13:18 | RAD ---
Date of service: 08/02/2018 PROCEDURE: CHEST RADIOGRAPH, 1 VIEW HISTORY: SOB COMPARISON: 06/27/2018. FINDINGS: LUNGS: The lungs are well inflated and clear. PLEURA: No pneumothorax or pleural effusion. CARDIOVASCULAR: There is redemonstration of severe cardiomegaly. Status post CABG. There is stable position of left-sided permanent pacing device. No aortic atherosclerotic calcifications present. OSSEOUS STRUCTURES: Within normal limits for the patient's age. VISUALIZED UPPER ABDOMEN: Normal. OTHER FINDINGS: None. IMPRESSION: No active pulmonary disease. Persistent severe cardiomegaly.
[2018-08-02 13:25] LABS: BASO # 0.1 K/uL (0.0-0.2); BASO % 1.1 % (0.0-2.0); EOS # 0.1 K/uL (0.0-0.7); EOS % 1.6 % (0.0-4.0); HEMOGLOBIN 10.9 g/dL (12.0-18.0); LYMPH # 0.9 K/uL (1.0-4.3); LYMPH % 11.6 % (20.0-40.0); MEAN CELL VOLUME 98.4 fL (80.0-94.0); MEAN CORPUSCULAR HEMOGLOBIN 33.7 pg (27.0-31.0); MEAN CORPUSCULAR HGB CONC 34.2 g/dL (33.0-37.0); MEAN PLATELET VOLUME 8.6 fL (7.2-11.7); MONO # 0.7 K/uL (0.0-0.8); MONO % 8.5 % (0.0-10.0); NEUT # 6.3 K/uL (1.8-7.0); NEUT % 77.2 % (50.0-75.0); RBC 3.25 Mil/uL (4.40-5.90); RED CELL DISTRIBUTION WIDTH 14.3 % (11.5-14.5); WHITE BLOOD COUNT 8.1 K/uL (4.8-10.8)
--- NOTE | 2018-08-02 13:26 | C.PDOC ---
History Of Present Illness 68 y/o male with PMHx of CHF, CAD, A Fib, HTN, and arthritis presents to the ED for evaluation of worsening SOB and dyspnea on exertion for the last few days. Patient reports that he was able to walk 50 feet using his cane today. Shortly after he began feeling SOB at rest. Patient was recently admitted for CHF exacerbation with increased leg swelling, where he received increased dose of Lasix and saw improvement in the swelling however his SOB worsened. Now patient states he has been hypotensive over last few days and pressure has been as low as 80/30 at home. In addition, patient states he did not take his blood pressure medications today. Otherwise patient denies any cough, fever, chills, chest pain, numbness, weakness, vomiting, abdominal pain, dizziness, or headache. Time Seen by Provider: 08/02/18 12:16 Chief Complaint (Nursing): Shortness Of Breath History Per: Patient History/Exam Limitations: no limitations Onset/Duration Of Symptoms: Days Current Symptoms Are (Timing): Worse Exacerbating Factor(s): Exertion Current Respiratory Medications: See Home Med List Past Medical History Reviewed: Historical Data, Nursing Documentation, Vital Signs Vital Signs: Last Vital Signs Temp 97.3 F L 08/02/18 11:55 Pulse 65 08/02/18 11:55 Resp 16 08/02/18 12:50 BP 98/62 L 08/02/18 11:55 Pulse Ox 97 08/02/18 11:55 - Medical History PMH: Arthritis, Atrial Fibrillation, Benign Prostatic Hyperplasia, CAD, Cardiac Aneurysm (aortic), CHF, Depression, Gall Bladder Disease, HTN, Mitral Valve Prolapse Denies: Chronic Kidney Disease Surgical History: Appendectomy, Cholecystectomy, Coronary Stent, Pacemaker - [facility] Procedures DRAINAGE OF GALLBLADDER WITH DRAINAGE DEVICE, PERC APPROACH (07/20/16) FLUOROSCOPY OF GALLBLADDER USING LOW OSMOLAR CONTRAST (08/28/16) Family History: States: Unknown Family Hx - Social History Hx Tobacco Use: No Hx Alcohol Use: No Hx Substance Use: No - Immunization History Hx Tetanus Toxoid Vaccination: Yes Hx Influenza Vaccination: Yes Hx Pneumococcal Vaccination: Yes Review Of Systems Except As Marked, All Systems Reviewed And Found Negative. Constitutional: Negative for: Fever, Chills Eyes: Negative for: Vision Change ENT: Negative for: Nose Congestion Cardiovascular: Negative for: Chest Pain Respiratory: Positive for: Shortness of Breath, SOB with Excertion. Negative for: Cough Gastrointestinal: Negative for: Nausea, Vomiting, Diarrhea Musculoskeletal: Negative for: Leg Pain, Other (leg swelling) Skin: Negative for: Rash Neurological: Negative for: Weakness, Numbness, Change in Speech, Headache, Dizziness Physical Exam - Physical Exam Appears: No Acute Distress, Chronically Ill, Other (Thin elderly male) Skin: Warm, Dry, No Rash Head: Atraumatic, Normacephalic Eye(s): bilateral: Normal Inspection, PERRL, EOMI Oral Mucosa: Moist Neck: Normal ROM Chest: Symmetrical Cardiovascular: Rhythm Regular, No Murmur Respiratory: Normal Breath Sounds, No Rales, No Rhonchi, No Wheezing Gastrointestinal/Abdominal: Soft, No Tenderness, No Distention, No Guarding Back: Normal Inspection, No Vertebral Tenderness Extremity: Normal ROM, No Calf Tenderness, No Swelling (no lower extremity edema) Pulses: Left Dorsalis Pedis: Normal, Right Dorsalis Pedis: Normal Neurological/Psych: Oriented x3, Normal Speech, Normal Cognition, Normal Cranial Nerves, Normal Motor, Normal Sensation, Other (No neuro deficits) Gait: With Assistance (using cane - at baseline per patient) ED Course And Treatment - Laboratory Results Result Diagrams: 08/02/18 13:14 08/02/18 13:14 O2 Sat by Pulse Oximetry: 97 (RA) Pulse Ox Interpretation: Normal - Other Rad CXR X-Ray: Read By Radiologist Interpretation: Accession No. : [id number]. Patient Name / ID : JOSEPH FARIAS / [id number]. Exam Date : 08/02/2018 12:58:03 ( Approved ). Study Comment : Sex / Age : M / 68Y. Creator : Tammy Ojeda MD. Dictator : Tammy Ojeda MD. Salesperson Parts : Palm [employer] Forger : Tammy Ojeda MD. Approver2 : Report Date : 08/02/2018 13:14:58. My Comment : . Date of service: 08/02/2018. PROCEDURE: CHEST RADIOGRAPH, 1 VIEW. HISTORY: SOB. COMPARISON: 06/27/2018. FINDINGS: LUNGS: The lungs are well inflated and clear. PLEURA: No pneumothorax or pleural effusion. CARDIOVASCULAR: There is redemonstration of severe cardiomegaly. Status post CABG. There is stable position of left-sided permanent pacing device. No aortic atherosclerotic calcifications present. OSSEOUS STRUCTURES: Within normal limits for the patient's age. VISUALIZED UPPER ABDOMEN: Normal. OTHER FINDINGS: None. IMPRESSION: No active pulmonary disease. Persistent severe cardiomegaly. Medical Decision Making Medical Decision Making: Initial Plan: - CMP - Pro-BNP - Troponin I - CBC - PTT/PT - EKG - Chest x-ray Progress: INR 5.1 BNP 3770 Labs and imaging reviewed. 14:30 Case was discussed w/ Dr. Chu, who agrees to admit patient to [facility] for acute CHF, supratherapeutic INR, and hypotension. Disposition Discussed With Dr.: Cain Chu Doctor Will See Patient In The: Hospital Counseled Patient/Family Regarding: Studies Performed, Diagnosis - Disposition Disposition: HOSPITALIZED Disposition Time: 14:35 Forms: [employer] Connect (Icelandic) - PA / STARBUCKS CLERK / Resident Statement MD/DO has reviewed & agrees with the documentation as recorded. - Scribe Statement The provider has reviewed the documentation as recorded by the Scribjorge Nassar All medical record entries made by the Devonibjorge were at my direction and personally dictated by me. I have reviewed the chart and agree that the record accurately reflects my personal performance of the history, physical exam, medical decision making, and the department course for this patient. I have also personally directed, reviewed, and agree with the discharge instructions and disposition.
[2018-08-02 13:41] LABS: ALB/GLOB RATIO 1.6 (1.0-2.1); ALBUMIN 4.1 g/dL (3.5-5.0)
[2018-08-02 13:50] LABS: INR 5.1; PROTHROMBIN TIME 55.9 SECONDS (9.7-12.2); TROPONIN I 0.021 ng/mL (0.00-0.120)
[2018-08-02] MEDS: Sodium Chloride 0.9% 1,000 ML IV SCH (18:46)
--- NOTE | 2018-08-03 04:29 | HP ---
HISTORY OF PRESENT ILLNESS: This is a 68-year-old male with history of multiple medical problems including ischemic cardiomyopathy, status post ICD placement, was admitted through emergency room after progressive symptoms of dizziness and three falls during the last 1 week. The patient was recently in the hospital where he was admitted for exacerbation of CHF and after he was diuresed, he went home. The patient was evaluated in emergency room and was found to have elevated BUN and creatinine as well as proBNP. The patient also had a chest x-ray done in emergency room that showed no active pulmonary disease with persistent severe cardiomegaly. The patient's BUN on admission was 41, creatinine 2.3, proBNP . Other review of systems is negative. ALLERGIES: POSITIVE FOR PENICILLIN AND STATINS. SOCIAL HISTORY: No history of smoking, EtOH or substance abuse. FAMILY HISTORY: Not contributory. PAST MEDICAL HISTORY: Ischemic cardiomyopathy, status post ICD placement, chronic atrial fibrillation, Marfan syndrome, gouty arthritis. MEDICATIONS: Reviewed and ordered as per MAR. PHYSICAL EXAMINATION: GENERAL: The patient is in bed, not in any cardiopulmonary distress. VITAL SIGNS: Blood pressure 113/57, temperature 97.7, respiratory rate 20 and pulse 64. HEENT: Pupils equal, reactive to light. Normal-appearing mucosa of the conjunctivae, oropharynx and nasal membrane mucosa. NECK: Supple. No JVD. No carotid bruit. No lymph node. No thyromegaly. CHEST AND LUNGS: Bilateral symmetrical expansion. Good air exchange. No rales, no rhonchi. CARDIOVASCULAR SYSTEM: PMI not localized. S1, S2. No additional sounds. ABDOMEN: Normoactive bowel sounds. No tenderness. No organomegaly. No masses. EXTREMITIES: No cyanosis, no clubbing, no edema. CENTRAL NERVOUS SYSTEM: Alert, awake, oriented x3. No neurological deficit could be appreciated. ASSESSMENT: 1. Acute renal failure. 2. Ischemic cardiomyopathy, status post implantable cardioverter-defibrillator placement. 3. Marfan syndrome with aortic valve disease. 4. Chronic atrial fibrillation with controlled ventricular rate. 5. Gouty arthritis. PLAN: We will start the patient on gentle hydration. Continue to check the blood pressure supine and standing. Resume the patient's home medications. Cardiology consult. [facility] MD Vlad [facility] # [id number]
[2018-08-03 09:02] LABS: PROTHROMBIN TIME 47.6 SECONDS (9.7-12.2)
[2018-08-03 09:03] LABS: INR 4.3
--- NOTE | 2018-08-03 09:15 | RAD ---
Date of service: 08/03/2018 PROCEDURE: Radiographs of the Sacrum and Coccyx HISTORY: s/p fall COMPARISON: None available. TECHNIQUE: Frontal and lateral views of the sacrum and coccyx FINDINGS: BONES: Sacrum and coccyx unremarkable. No fracture or focal lesion. SACROILIAC JOINTS: Unremarkable. OTHER FINDINGS: None. IMPRESSION: Unremarkable radiographs of the sacrum and coccyx.
--- NOTE | 2018-08-03 09:27 | RAD ---
PROCEDURE: Left Hip X-ray Radiographs. HISTORY: s/p fall COMPARISON: None. FINDINGS: BONES: No acute fracture or destructive bony lesion identified. JOINTS: Degenerative cortical sclerosis appreciate the bilateral hip joints and bilateral sacroiliac joints. No subluxation or dislocation SOFT TISSUES: Normal. OTHER FINDINGS: None. IMPRESSION: No acute fracture or dislocation left hip joint. Degenerative changes as discussed above.
[2018-08-03] MEDS: Lactobacillus Acidophilus 500 MU Cap PO SCH ×2 (09:31→17:36)
[2018-08-03] MEDS: Metoprolol Succinate 25 mg XL Tab PO SCH (09:31)
[2018-08-03] MEDS: Sodium Chloride 0.9% 1,000 ML IV SCH ×2 (09:32→21:39)
[2018-08-03] MEDS: buPROPion 150 mg/24 Hours XL Tab PO SCH (09:33)
[2018-08-04 00:34] VITALS: RESP 20
[2018-08-04 07:37] LABS: BASO % 0.6 % (0.0-2.0); EOS # 0.2 K/uL (0.0-0.7); EOS % 3.1 % (0.0-4.0); HEMOGLOBIN 9.5 g/dL (12.0-18.0); LYMPH # 1.1 K/uL (1.0-4.3); LYMPH % 15.1 % (20.0-40.0); MEAN CELL VOLUME 98.6 fL (80.0-94.0); MEAN CORPUSCULAR HGB CONC 34.5 g/dL (33.0-37.0); MEAN PLATELET VOLUME 8.7 fL (7.2-11.7); MONO # 0.6 K/uL (0.0-0.8); MONO % 8.8 % (0.0-10.0); NEUT # 5.2 K/uL (1.8-7.0); NEUT % 72.4 % (50.0-75.0); RBC 2.79 Mil/uL (4.40-5.90); WHITE BLOOD COUNT 7.2 K/uL (4.8-10.8)
[2018-08-04 07:39] LABS: ALB/GLOB RATIO 1.4 (1.0-2.1); ALBUMIN 3.3 g/dL (3.5-5.0); CALCIUM 8.4 mg/dl (8.6-10.4)
[2018-08-04 07:49] LABS: INR 3.9; PROTHROMBIN TIME 42.9 SECONDS (9.7-12.2)
[2018-08-04] MEDS: Sodium Chloride 0.9% 1,000 ML IV SCH ×3 (08:40→20:30)
[2018-08-04] MEDS: buPROPion 150 mg/24 Hours XL Tab PO SCH (10:32)
[2018-08-04] MEDS: Lactobacillus Acidophilus 500 MU Cap PO SCH ×2 (10:33→17:38)
[2018-08-04] MEDS: Metoprolol Succinate 25 mg XL Tab PO SCH (10:34)
--- NOTE | 2018-08-04 15:23 | CP.PCM.CON ---
History of Present Illness - History of Present Illness History of Present Illness: CC: Dyspnea and pedal edema 66 year old male with history of Marfan's syndrome, atrial fibrillation on coumadin, aortic aneurysm, CHF s/p ICD placement/MVR, gout, , BPH who presented to hospital with dyspnea also has hx of CHF, Pacemaker, Open heart sx (MVR), PMH: As above PSH: Open Appendectomy, Mitral valve replacement, Cardiac stents Review of Systems - Review of Systems All systems: reviewed and no additional remarkable complaints except (as per HPI) Physical Exam - Constitutional Appears: No Acute Distress Additional comments: lethargic - Head Exam Head Exam: ATRAUMATIC, NORMOCEPHALIC - Eye Exam Eye Exam: Normal appearance. absent: Scleral icterus - ENT Exam ENT Exam: Mucous Membranes Dry - Respiratory Exam Respiratory Exam: NORMAL BREATHING PATTERN. absent: Accessory Muscle Use, Wheezes, Respiratory Distress - Cardiovascular Exam Cardiovascular Exam: REGULAR RHYTHM - GI/Abdominal Exam GI & Abdominal Exam: Normal - Extremities Exam Extremities exam: Positive for: normal inspection. Negative for: pedal edema - Neurological Exam Neurological exam: Alert, Oriented x3 - Psychiatric Exam Psychiatric exam: Normal Affect, Normal Mood - Skin Skin Exam: Dry, Intact Assessment & Plan - Assessment and Plan (Free Text) Assessment: 66 year old male with history of Marfan's syndrome, atrial fibrillation on coumadin, aortic aneurysm, CHF s/p ICD placement/MVR, gout, BPH who presented to presented with Acute on Chronic systolic CHF CHF management Hypotension and dizziness. Patient already on Midodrine Past Patient History - Infectious Disease Hx of Infectious Diseases: None - Past Medical History & Family History Past Medical History?: Yes - Past Social History Smoking Status: Never Smoked - CARDIAC Hx Atrial Fibrillation: Yes Hx Congestive Heart Failure: Yes Hx Hypertension: Yes Hx Mitral Valve Prolapse: Yes Hx Pacemaker: Yes - PULMONARY Hx Respiratory Disorders: No - NEUROLOGICAL Hx Neurological Disorder: No - HEENT Hx HEENT Problems: Yes Hx Cataracts: Yes - RENAL Hx Chronic Kidney Disease: Yes Other/Comment: medical renal dx as per previous admissions - ENDOCRINE/METABOLIC Hx Endocrine Disorders: No - HEMATOLOGICAL/ONCOLOGICAL Hx Blood Disorders: No - INTEGUMENTARY Hx Dermatological Problems: Yes - MUSCULOSKELETAL/RHEUMATOLOGICAL Hx Arthritis: Yes Hx Falls: Yes Hx Gout: Yes Other/Comment: marfan's syndrome - GASTROINTESTINAL Hx Gall Bladder Disease: Yes - GENITOURINARY/GYNECOLOGICAL Hx Genitourinary Disorders: Yes Hx Prostate Problems: Yes - PSYCHIATRIC Hx Depression: Yes Hx Substance Use: No - SURGICAL HISTORY Hx Appendectomy: Yes Hx Cholecystectomy: Yes Hx Coronary Stent: Yes Hx Valve Replacement: Yes (mitral valve replacement) - ANESTHESIA Hx Anesthesia: Yes Hx Anesthesia Reactions: No Hx Malignant Hyperthermia: No Has any member of the family had a problem w/ anesthesia?: No Meds Allergies/Adverse Reactions: Allergies Allergy/AdvReac Type Severity Reaction Status Date / Time Penicillins Allergy Severe ANAPHYLAXIS Verified 08/02/18 11:53 statins AdvReac Intermediate FATIGUE Uncoded 08/02/18 11:53 - Medications Medications: Current Medications Acetaminophen (Tylenol 325mg Tab) 650 mg PO Q6 PRN PRN Reason: Pain, moderate (4-7) Last Admin: 08/04/18 10:34 Dose: 650 mg Allopurinol (Zyloprim) 100 mg PO DAILY [facility] Last Admin: 08/04/18 10:33 Dose: 100 mg Amiodarone HCl (Cordarone) 200 mg PO DAILY [facility] Last Admin: 08/04/18 10:33 Dose: 200 mg Bupropion HCl (Wellbutrin Xl) 300 mg PO DAILY [facility] Last Admin: 08/04/18 10:32 Dose: 300 mg Donepezil HCl (Aricept) 10 mg PO HS [facility] Last Admin: 08/03/18 21:36 Dose: 10 mg Finasteride (Proscar) 5 mg PO DAILY [facility] Last Admin: 08/04/18 10:33 Dose: 5 mg Gabapentin (Neurontin) 300 mg PO DAILY [facility] Last Admin: 08/04/18 10:33 Dose: 300 mg Sodium Chloride (Sodium Chloride 0.9%) 1,000 mls @ 80 mls/hr IV .[id number] [facility] Last Admin: 08/04/18 10:39 Dose: 80 mls/hr Lactobacillus Acidophilus (Lactobacillus) 1 cap PO BID [facility] Last Admin: 08/04/18 10:33 Dose: 1 cap Metoprolol Succinate (Toprol Xl) 25 mg PO DAILY [facility] Last Admin: 08/04/18 10:34 Dose: Not Given Midodrine (Proamatine) 2.5 mg PO TID [facility] Last Admin: 08/04/18 13:32 Dose: 2.5 mg Tamsulosin HCl (Flomax) 0.4 mg PO DAILY [facility] Last Admin: 08/04/18 10:33 Dose: 0.4 mg Results - Vital Signs Recent Vital Signs: Last Vital Signs Temp 97.9 F 08/04/18 07:05 Pulse 70 08/04/18 12:02 Resp 20 08/04/18 07:05 BP 116/58 L 08/04/18 07:05 Pulse Ox 98 08/04/18 07:05 - Labs Result Diagrams: 08/04/18 07:18 08/04/18 07:18 Labs: Laboratory Results - last 24 hr 08/04/18 08/04/18 08/04/18 07:18 07:18 07:18 WBC 7.2 RBC 2.79 L Hgb 9.5 L Hct 27.5 L MCV 98.6 H MCH 34.0 H MCHC 34.5 RDW 14.0 Plt Count 140 MPV 8.7 Neut % (Auto) 72.4 Lymph % (Auto) 15.1 L Haakon % (Auto) 8.8 Eos % (Auto) 3.1 Baso % (Auto) 0.6 Neut # (Auto) 5.2 Lymph # (Auto) 1.1 Haakon # (Auto) 0.6 Eos # (Auto) 0.2 Baso # (Auto) 0.0 PT 42.9 H INR 3.9 H* Sodium 138 Potassium 4.2 Chloride 107 Carbon Dioxide 29 Anion Gap 6 L BUN 29 H Creatinine 1.6 H Est GFR ( Amer) 52 Est GFR (Non-Af Amer) 43 POC Glucose (mg/dL) Random Glucose 88 Calcium 8.4 L Total Bilirubin 1.0 AST 28 ALT 16 L Alkaline Phosphatase 70 Total Protein 5.6 L Albumin 3.3 L Globulin 2.3 Albumin/Globulin Ratio 1.4 08/04/18 11:51 WBC RBC Hgb Hct MCV MCH MCHC RDW Plt Count MPV Neut % (Auto) Lymph % (Auto) Haakon % (Auto) Eos % (Auto) Baso % (Auto) Neut # (Auto) Lymph # (Auto) Haakon # (Auto) Eos # (Auto) Baso # (Auto) PT INR Sodium Potassium Chloride Carbon Dioxide Anion Gap BUN Creatinine Est GFR ( Amer) Est GFR (Non-Af Amer) POC Glucose (mg/dL) 88 Random Glucose Calcium Total Bilirubin AST ALT Alkaline Phosphatase Total Protein Albumin Globulin Albumin/Globulin Ratio
[2018-08-04] MEDS: Oxycodone/Acetaminophen 5/325 mg Tab PO PRN (20:08)
--- NOTE | 2018-08-04 22:30 | PN ---
DATE: 08/03/2018 SUBJECTIVE: The patient was seen on 08/03/2018. He was not in any cardiopulmonary distress. The patient was still feeling dizzy on standing and he has orthostatic changes. PHYSICAL EXAMINATION: VITAL SIGNS: Blood pressure lying down 104/64 and standing 86/48, temperature 97.9, respiratory rate 20 and pulse 69. HEENT: Pupils equal and reactive to light. Normal-appearing mucosa of the conjunctivae, oropharynx, and nasal membrane mucosa. NECK: Supple. No JVD. No carotid bruit. No lymph node. No thyromegaly. CHEST AND LUNGS: Bilateral symmetrical expansion. Good air exchange. No rales, no rhonchi. CARDIOVASCULAR SYSTEM: PMI not localized. S1, S2. No additional sounds. ABDOMEN: Normoactive bowel sounds. No tenderness. No organomegaly. No masses. EXTREMITIES: No cyanosis, no clubbing, no edema. WILDLIFE OFFICER: Alert, awake, oriented x3. No neurological deficit could be appreciated. ASSESSMENT: 1. Acute renal failure. 2. Dehydration. 3. Orthostatic changes likely secondary to hypovolemia. 4. Ischemic cardiomyopathy, status post implantable cardioverter-defibrillator and dual chamber pacemaker. PLAN: Continue current medications and hold Lasix, continue IV fluid, add midodrine 2.5 mg three times a day. Fall precautions. Cain Chu MD
[2018-08-05] MEDS: Sodium Chloride 0.9% 1,000 ML IV SCH ×2 (03:35→08:26)
[2018-08-05 07:41] LABS: BASO # 0.1 K/uL (0.0-0.2); EOS # 0.2 K/uL (0.0-0.7); EOS % 3.9 % (0.0-4.0); LYMPH # 1.1 K/uL (1.0-4.3); LYMPH % 17.3 % (20.0-40.0); MEAN CELL VOLUME 98.4 fL (80.0-94.0); MEAN CORPUSCULAR HEMOGLOBIN 34.3 pg (27.0-31.0); MEAN CORPUSCULAR HGB CONC 34.8 g/dL (33.0-37.0); MEAN PLATELET VOLUME 8.8 fL (7.2-11.7); MONO # 0.5 K/uL (0.0-0.8); MONO % 8.6 % (0.0-10.0); NEUT # 4.3 K/uL (1.8-7.0); NEUT % 69.2 % (50.0-75.0); RBC 2.63 Mil/uL (4.40-5.90); RED CELL DISTRIBUTION WIDTH 14.2 % (11.5-14.5); WHITE BLOOD COUNT 6.2 K/uL (4.8-10.8)
[2018-08-05 07:56] LABS: ALB/GLOB RATIO 1.3 (1.0-2.1); ALBUMIN 3.1 g/dL (3.5-5.0); ALT/SGPT 20 U/L (21-72); AST/SGOT 19 U/L (17-59); BLOOD UREA NITROGEN 20 mg/dL (9-20); CALCIUM 8.2 mg/dl (8.6-10.4); GFR NON-AFRICAN AMERICAN 50
[2018-08-05 08:44] LABS: INR 3.1; PROTHROMBIN TIME 34.3 SECONDS (9.7-12.2)
[2018-08-05] MEDS: Oxycodone/Acetaminophen 5/325 mg Tab PO PRN ×2 (09:21→17:22)
[2018-08-05] MEDS: Lactobacillus Acidophilus 500 MU Cap PO SCH ×2 (09:23→17:14)
[2018-08-05] MEDS: buPROPion 150 mg/24 Hours XL Tab PO SCH (09:27)
[2018-08-05] MEDS: Metoprolol Succinate 25 mg XL Tab PO SCH (09:30)
[2018-08-05] MEDS ORDERED: Sodium Chloride 0.9% 1,000 ML IV SCH (22:00)
[2018-08-06 06:44] LABS: BLOOD UREA NITROGEN 18 mg/dL (9-20); CALCIUM 8.3 mg/dl (8.6-10.4); GFR NON-AFRICAN AMERICAN 55
--- NOTE | 2018-08-06 06:46 | CP.PCM.PN ---
Subjective - Date & Time of Evaluation Date of Evaluation: 08/05/18 Time of Evaluation: 16:15 - Subjective Subjective: Patient seen and evaluated Denies chest pain and dyspnea Feels less dizzy with improved BP Physical Exam - Constitutional Appears: No Acute Distress Additional comments: lethargic - Head Exam Head Exam: ATRAUMATIC, NORMOCEPHALIC - Eye Exam Eye Exam: Normal appearance. absent: Scleral icterus - ENT Exam ENT Exam: Mucous Membranes Dry - Respiratory Exam Respiratory Exam: NORMAL BREATHING PATTERN. absent: Accessory Muscle Use, Wheezes, Respiratory Distress - Cardiovascular Exam Cardiovascular Exam: REGULAR RHYTHM - GI/Abdominal Exam GI & Abdominal Exam: Normal - Extremities Exam Extremities exam: Positive for: normal inspection. Negative for: pedal edema - Neurological Exam Neurological exam: Alert, Oriented x3 - Psychiatric Exam Psychiatric exam: Normal Affect, Normal Mood - Skin Skin Exam: Dry, Intact Assessment & Plan - Assessment and Plan (Free Text) Assessment: 66 year old male with history of Marfan's syndrome, atrial fibrillation on coumadin, aortic aneurysm, CHF s/p ICD placement/MVR, gout, BPH who presented to presented with Acute on Chronic systolic CHF CHF management Hypotension and dizziness. Patient already on Midodrine. BP improving Objective - Vital Signs/Intake and Output Vital Signs (last 24 hours): Temp Pulse Resp BP Pulse Ox 97.7 F 69 20 117/70 96 08/06/18 04:50 08/06/18 04:50 08/06/18 04:50 08/06/18 04:50 08/06/18 04:50 - Medications Medications: Current Medications Acetaminophen (Tylenol 325mg Tab) 650 mg PO Q6 PRN PRN Reason: Pain, moderate (4-7) Last Admin: 08/04/18 10:34 Dose: 650 mg Allopurinol (Zyloprim) 100 mg PO DAILY [facility] Last Admin: 08/05/18 09:21 Dose: 100 mg Amiodarone HCl (Cordarone) 200 mg PO DAILY [facility] Last Admin: 08/05/18 09:22 Dose: 200 mg Bupropion HCl (Wellbutrin Xl) 300 mg PO DAILY [facility] Last Admin: 08/05/18 09:27 Dose: 300 mg Donepezil HCl (Aricept) 10 mg PO HS [facility] Last Admin: 08/05/18 21:17 Dose: 10 mg Finasteride (Proscar) 5 mg PO DAILY [facility] Last Admin: 08/05/18 09:21 Dose: 5 mg Gabapentin (Neurontin) 300 mg PO DAILY [facility] Last Admin: 08/05/18 09:21 Dose: 300 mg Sodium Chloride (Sodium Chloride 0.9%) 1,000 mls @ 80 mls/hr IV .[id number] [facility] Last Admin: 08/05/18 22:31 Dose: 80 mls/hr Lactobacillus Acidophilus (Lactobacillus) 1 cap PO BID [facility] Last Admin: 08/05/18 17:14 Dose: 1 cap Metoprolol Succinate (Toprol Xl) 25 mg PO DAILY [facility] Last Admin: 08/05/18 09:30 Dose: Not Given Midodrine (Proamatine) 2.5 mg PO TID [facility] Last Admin: 08/05/18 17:14 Dose: 2.5 mg Oxycodone/Acetaminophen (Percocet 5/325 Mg Tab) 1 tab PO Q8H PRN PRN Reason: pain Stop: 08/07/18 19:42 Last Admin: 08/05/18 17:22 Dose: 1 tab Tamsulosin HCl (Flomax) 0.4 mg PO DAILY [facility] Last Admin: 08/05/18 09:21 Dose: 0.4 mg - Labs Labs: 08/05/18 07:24 08/06/18 06:24 PT 34.3 SECONDS (9.7-12.2) H D 08/05/18 07:24 INR 3.1 H* 08/05/18 07:24 APTT 53 SECONDS (21-34) H 08/02/18 13:14
[2018-08-06 06:49] LABS: INR 2.2; PROTHROMBIN TIME 24.1 SECONDS (9.7-12.2)
[2018-08-06] MEDS: buPROPion 150 mg/24 Hours XL Tab PO SCH (09:16)
[2018-08-06] MEDS: Lactobacillus Acidophilus 500 MU Cap PO SCH ×2 (09:16→17:40)
[2018-08-06] MEDS: Metoprolol Succinate 25 mg XL Tab PO SCH (09:16)
--- NOTE | 2018-08-07 00:02 | PN ---
DATE: 08/06/2018 SUBJECTIVE: The patient is seen today, 08/06/2018. PHYSICAL EXAMINATION: VITAL SIGNS: Blood pressure 112/66, temperature 97.6, respiratory rate 20 and pulse 69. HEENT: Pupils equal, reactive to light. Normal-appearing mucosa of the conjunctivae, oropharynx and nasal membrane mucosa. NECK: Supple. No JVD. No carotid bruit. No lymph node. No thyromegaly. CHEST AND LUNGS: Bilateral symmetrical expansion. Good air exchange. No rales, no rhonchi. CARDIOVASCULAR SYSTEM: PMI not localized. S1, S2. No additional sounds. ABDOMEN: Normoactive bowel sounds. No tenderness. No organomegaly. No masses. EXTREMITIES: No cyanosis, no clubbing, no edema. BLOCK TESTER: Alert, awake, oriented x2. No neurological deficit could be appreciated. ASSESSMENT: Frequent falls, orthostatic hypotension, acute kidney injury, ischemic cardiomyopathy, atrial fibrillation with controlled ventricular rate. PLAN: Continue current medications including ProAmatine. We will stop IV fluid, give Coumadin 4 mg today as INR is 2.2. The patient continued to be stable, we will discharge home tomorrow. Cain Chu MD
--- NOTE | 2018-08-07 00:54 | PN ---
DATE: 08/05/2018 SUBJECTIVE: The patient was seen on 08/05/2018. He was not in any cardiopulmonary distress. The patient was started on ProAmatine and he was tolerating. PHYSICAL EXAMINATION: VITAL SIGNS: Blood pressure was 119/72, temperature 98, respiratory rate 20, and pulse 69. HEENT: Pupils equal, reactive to light. Normal-appearing mucosa of the conjunctivae, oropharynx, and nasal membrane mucosa. NECK: Supple. No JVD. No carotid bruit. No lymph node. No thyromegaly. CHEST AND LUNGS: Bilateral symmetrical expansion. Good air exchange. No rales, no rhonchi. CARDIOVASCULAR SYSTEM: PMI not localized. S1 and S2. No additional sounds. ABDOMEN: Normoactive bowel sounds. No tenderness. No organomegaly. No masses. EXTREMITIES: No cyanosis. No clubbing. No edema. CENTRAL NERVOUS SYSTEM: Alert, awake, oriented x2. No neurological deficit could be appreciated. ASSESSMENT: Frequent falls with orthostatic hypotension, acute kidney injury, ischemic cardiomyopathy, and atrial fibrillation with controlled ventricular rate. PLAN: Continue to monitor INR, continue IV fluid, ProAmatine, and physical therapy. Cain Chu MD
[2018-08-07 07:49] LABS: INR 1.9; PROTHROMBIN TIME 20.6 SECONDS (9.7-12.2)
--- NOTE | 2018-08-07 07:51 | CP.PCM.PN ---
Subjective - Date & Time of Evaluation Date of Evaluation: 08/06/18 Time of Evaluation: 18:30 - Subjective Subjective: Patient seen and evaluated Denies chest pain and dyspnea But still feels wobbly while walking Physical Exam - Constitutional Appears: No Acute Distress Additional comments: lethargic - Head Exam Head Exam: ATRAUMATIC, NORMOCEPHALIC - Eye Exam Eye Exam: Normal appearance. absent: Scleral icterus - ENT Exam ENT Exam: Mucous Membranes Dry - Respiratory Exam Respiratory Exam: NORMAL BREATHING PATTERN. absent: Accessory Muscle Use, Wheezes, Respiratory Distress - Cardiovascular Exam Cardiovascular Exam: REGULAR RHYTHM - GI/Abdominal Exam GI & Abdominal Exam: Normal - Extremities Exam Extremities exam: Positive for: normal inspection. Negative for: pedal edema - Neurological Exam Neurological exam: Alert, Oriented x3 - Psychiatric Exam Psychiatric exam: Normal Affect, Normal Mood - Skin Skin Exam: Dry, Intact Assessment & Plan - Assessment and Plan (Free Text) Assessment: 66 year old male with history of Marfan's syndrome, atrial fibrillation on coumadin, aortic aneurysm, CHF s/p ICD placement/MVR, gout, BPH who presented to presented with Acute on Chronic systolic CHF CHF management Hypotension and dizziness. Patient already on Midodrine. BP improving Objective - Vital Signs/Intake and Output Vital Signs (last 24 hours): Temp Pulse Resp BP Pulse Ox 97.6 F 72 20 90/57 L 96 08/07/18 07:00 08/07/18 07:00 08/07/18 07:00 08/07/18 07:00 08/07/18 07:00 Intake and Output: 08/07/18 08/07/18 06:59 18:59 Intake Total 890 Output Total 900 Balance -10 - Medications Medications: Current Medications Acetaminophen (Tylenol 325mg Tab) 650 mg PO Q6 PRN PRN Reason: Pain, moderate (4-7) Last Admin: 08/04/18 10:34 Dose: 650 mg Allopurinol (Zyloprim) 100 mg PO DAILY [facility] Last Admin: 08/06/18 09:15 Dose: 100 mg Amiodarone HCl (Cordarone) 200 mg PO DAILY [facility] Last Admin: 08/06/18 09:15 Dose: 200 mg Bupropion HCl (Wellbutrin Xl) 300 mg PO DAILY [facility] Last Admin: 08/06/18 09:16 Dose: 300 mg Donepezil HCl (Aricept) 10 mg PO HS [facility] Last Admin: 08/06/18 21:30 Dose: 10 mg Finasteride (Proscar) 5 mg PO DAILY [facility] Last Admin: 08/06/18 09:16 Dose: 5 mg Gabapentin (Neurontin) 300 mg PO DAILY [facility] Last Admin: 08/06/18 09:15 Dose: 300 mg Lactobacillus Acidophilus (Lactobacillus) 1 cap PO BID [facility] Last Admin: 08/06/18 17:40 Dose: 1 cap Metoprolol Succinate (Toprol Xl) 25 mg PO DAILY [facility] Last Admin: 08/06/18 09:16 Dose: 25 mg Midodrine (Proamatine) 2.5 mg PO TID [facility] Last Admin: 08/06/18 17:40 Dose: 2.5 mg Oxycodone/Acetaminophen (Percocet 5/325 Mg Tab) 1 tab PO Q8H PRN PRN Reason: pain Stop: 08/07/18 19:42 Last Admin: 08/05/18 17:22 Dose: 1 tab Tamsulosin HCl (Flomax) 0.4 mg PO DAILY [facility] Last Admin: 08/06/18 09:16 Dose: 0.4 mg - Labs Labs: 08/05/18 07:24 08/06/18 06:24 PT 20.6 SECONDS (9.7-12.2) H 08/07/18 07:35 INR 1.9 08/07/18 07:35 APTT 53 SECONDS (21-34) H 08/02/18 13:14
[2018-08-07] MEDS: Lactobacillus Acidophilus 500 MU Cap PO SCH (09:36)
[2018-08-07] MEDS: Metoprolol Succinate 25 mg XL Tab PO SCH (09:36)
[2018-08-07] MEDS: buPROPion 150 mg/24 Hours XL Tab PO SCH (09:36)
--- NOTE | 2018-08-07 15:41 | PCM.HF ---
Heart Failure Core Measure - Heart Failure Ejection Fraction: Less Than 40 % NAYELI Inhibitor Prescribed: No Contraindication/Reason for not providing: BP LOW Beta-Lee Prescribed: Metoprolol Succinate Angiotensin II Receptor Lee Prescribed: No Contraindication/Reason for not providing: BP LOW 90'S AnticoagulationTherapy for Atrial Fibrillation/Atrialflutter: Yes Aldosterone Antagonist Prescribed: No Contraindication/Reason for not providing: RISK FOR HYPERKALEMIA Hydralazine Nitrate Prescribed: No Contraindication/Reason for not providing: ON AMIODORONE Implantable Cardioverter Defibrillator Therapy: No Contraindication/Reason for not providing: PT has AICD Cardiac Resynchronization Therapy Prescribed: No Contraindication/Reason for not providing: pt has AICD - Follow up Will be discharged to: Home Follow Up Date (must be within 7 days from discharge): 08/12/18
[2018-08-07 16:17] VITALS: BP 98/61; PULSE 72; TEMP 97.3; O2SAT 100
--- NOTE | 2018-08-08 08:26 | DS ---
REASON FOR ADMISSION: This is a 68-year-old male with history of multiple medical problems who was admitted for frequent falls and dizziness and orthostatic hypotension as well as Coumadin overdose. HOSPITAL COURSE: The patient was admitted to medical floor and he was started on IV fluids. The patient's blood pressure was low and still had orthostatic hypotension. The patient was started on midodrine 2.5 mg three times a day. The patient's antihypertensive medications were stopped. The patient's BUN and creatinine also were normalizing as the patient was given IV fluid. The patient was discharged home with stable blood pressure and he was not having any dizziness. The patient's Coumadin was resumed after the INR went down to therapeutic level. FINAL DIAGNOSES: 1. Frequent falls. 2. Orthostatic hypotension. 3. Acute kidney injury with dehydration. 4. Coagulopathy secondary to supratherapeutic international normalized ratio, likely secondary to the acute kidney injury with decreased glomerular filtration rate. 5. Ischemic cardiomyopathy. 6. Chronic atrial fibrillation, on anticoagulant. Gino MD Vlad
== END 2018-08-07 16:43 | disposition home or self-care (01) | DRG 291 ==
LOC: C.ER 11:49 → C.9E 14:36 → C.6T 16:39
PROVIDERS: ADMIT Internal Medicine; ATTEND Internal Medicine
DX: I13.0 Hypertensive heart and chronic kidney disease with heart failure and stage 1 through stage 4 chronic kidney disease, or unspecified chronic kidney disease (principal); I50.23 Acute on chronic systolic (congestive) heart failure; N17.9 Acute kidney failure, unspecified; I95.1 Orthostatic hypotension; E86.0 Dehydration; D68.9 Coagulation defect, unspecified; E86.1 Hypovolemia; I25.5 Ischemic cardiomyopathy; I48.2 Chronic atrial fibrillation; Q87.418 Marfan syndrome with other cardiovascular manifestations; N18.9 Chronic kidney disease, unspecified; I25.10 Atherosclerotic heart disease of native coronary artery without angina pectoris; N40.0 Benign prostatic hyperplasia without lower urinary tract symptoms; I08.0 Rheumatic disorders of both mitral and aortic valves; I71.9 Aortic aneurysm of unspecified site, without rupture; M10.9 Gout, unspecified; R29.6 Repeated falls; Z95.2 Presence of prosthetic heart valve; Z95.810 Presence of automatic (implantable) cardiac defibrillator; Z95.5 Presence of coronary angioplasty implant and graft; Z79.01 Long term (current) use of anticoagulants; Z90.49 Acquired absence of other specified parts of digestive tract

== ENCOUNTER 2018-09-15 10:28 | Emergency (ER) | payer MEDICARE ==
[2018-09-15 10:28] VITALS: PULSE 69; BMI 20.8
--- NOTE | 2018-09-15 10:50 | C.PDOC ---
History Of Present Illness 68 year old male presents s/p slip and fall this morning. The pt reports he lost his balance and complains of right hip contusion. He notes hitting the back of his head, elodia LOC. States initially experienced a lot of pain, now in the ED he feels better. Admits he is on coumadin. Denies weakness, numbness, and other injuries and any other associated symptoms. history of Marfan's syndrome, atrial fibrillation on coumadin, aortic aneurysm, CHF s/p ICD placement/MVR, gout, BPH PSH: Open Appendectomy, Mitral valve replacement, Cardiac stents - HPI Time Seen by Provider: 09/15/18 10:49 Chief Complaint (Nursing): Lower Extremity Problem/Injury History Per: Patient History/Exam Limitations: no limitations Onset/Duration Of Symptoms: Hrs Location Of Injury: Right: Hand, Hip Recent travel outside of the [place]: No Past Medical History Reviewed: Historical Data, Nursing Documentation, Vital Signs Vital Signs: Last Vital Signs Temp 97.7 F 09/15/18 10:30 Pulse 70 09/15/18 10:30 Resp 16 09/15/18 10:30 BP 143/70 09/15/18 10:30 Pulse Ox 100 09/15/18 10:30 - Medical History PMH: Arthritis, Atrial Fibrillation, Benign Prostatic Hyperplasia, CAD, Cardiac Aneurysm (aortic), CHF, Depression, Gall Bladder Disease, HTN, Mitral Valve Prolapse Denies: Chronic Kidney Disease Surgical History: Appendectomy, Cholecystectomy, Coronary Stent, Pacemaker - [facility] Procedures DRAINAGE OF GALLBLADDER WITH DRAINAGE DEVICE, PERC APPROACH (07/20/16) FLUOROSCOPY OF GALLBLADDER USING LOW OSMOLAR CONTRAST (08/28/16) Family History: States: Unknown Family Hx - Social History Hx Tobacco Use: No Hx Alcohol Use: No Hx Substance Use: No - Immunization History Hx Tetanus Toxoid Vaccination: Yes Hx Influenza Vaccination: Yes Hx Pneumococcal Vaccination: Yes Review Of Systems Except As Marked, All Systems Reviewed And Found Negative. Constitutional: Positive for: Other ((+) head injury. (-) other injuries. ) Musculoskeletal: Positive for: Other ((+) hip contusion. ) Neurological: Negative for: Weakness, Numbness, Incoordination, Other ((-) LOC. ) Physical Exam - Physical Exam Appears: Non-toxic, No Acute Distress Skin: Warm, Dry Head: Atraumatic, Normacephalic Eye(s): bilateral: Normal Inspection Oral Mucosa: Moist Neck: Normal ROM, Supple Chest: Symmetrical, No Deformity Cardiovascular: Rhythm Regular, No Murmur Respiratory: Normal Breath Sounds, No Rales, No Rhonchi, No Wheezing Gastrointestinal/Abdominal: Normal Exam, Soft, No Tenderness Back: Normal Inspection, No Vertebral Tenderness, No Paraspinal Tenderness Extremity: Normal ROM (active ROM of the hip. normal ROM x4 extremities.), No Deformity, No Other ((-) shortening. ) Neurological/Psych: Oriented x3, Normal Speech, Normal Cognition ED Course And Treatment - Laboratory Results Result Diagrams: 09/15/18 11:25 O2 Sat by Pulse Oximetry: 100 (RA) Pulse Ox Interpretation: Normal - Other Rad Hip w/ Pelvis x-ray X-Ray: Interpreted by Me, Viewed By Me Interpretation: no acute disease. no frature. - CT Scan/US CT Head Other Rad Studies (CT/US): Read By Radiologist, Radiology Report Reviewed CT/US Interpretation: FINDINGS: HEMORRHAGE: No intracranial hemorrhage. BRAIN: No mass effect or edema. Minimal diffuse age-appropriate cerebral atrophy. VENTRICLES: Unremarkable. No hydrocephalus. CALVARIUM: Unremarkable. PARANASAL SINUSES: Unremarkable as visualized. No significant inflammatory changes. MASTOID AIR CELLS: Unremarkable as visualized. No inflammatory changes. OTHER FINDINGS: None. IMPRESSION: No intracranial mass, hemorrhage or evidence of acute infarct. Reevaluation Time: 13:10 Reassessment Condition: Improved (NEURO INTACT. AROM WO DIFF. CT, XRAYS WNL) Medical Decision Making Medical Decision Making: Initial Plan: -CT head w/o contrast -Hip w/ Pelvis x-ray -Tylenol -Blood sent. Disposition Counseled Patient/Family Regarding: Studies Performed, Diagnosis, Need For Followup - Disposition Referrals: YOUR,PMD [Other] Disposition: HOME/ ROUTINE Disposition Time: 13:10 Condition: IMPROVED Instructions: Contusion (DC), Minor Head Injury (DC) Forms: [facility] (Greenlandic) - Clinical Impression Clinical Impression: Closed head injury, Fall, Contusion, hip - Scribe Statement The provider has reviewed the documentation as recorded by the Scribe (Marleen Potter) Provider Attestation: All medical record entries made by the Scribe were at my direction and persona lly dictated by me. I have reviewed the chart and agree that the record accurately reflects my personal performance of the history, physical exam, medical decision making, and the department course for this patient. I have also personally directed, reviewed, and agree with the discharge instructions and disposition.
[2018-09-15 11:28] LABS: MEAN CORPUSCULAR HEMOGLOBIN 33.9 pg (27.0-31.0); MEAN CORPUSCULAR HGB CONC 33.7 g/dL (33.0-37.0); MEAN PLATELET VOLUME 7.9 fL (7.2-11.7); RBC 3.33 Mil/uL (4.40-5.90); RED CELL DISTRIBUTION WIDTH 14.9 % (11.5-14.5)
[2018-09-15 11:31] LABS: HEMOGLOBIN 11.3 g/dL (12.0-18.0); MEAN CELL VOLUME 100.7 fL (80.0-94.0)
[2018-09-15 11:50] LABS: INR 1.6; PROTHROMBIN TIME 17.2 SECONDS (9.7-12.2)
--- NOTE | 2018-09-15 12:48 | CT ---
Date of service: 09/15/2018 PROCEDURE: CT HEAD WITHOUT CONTRAST. HISTORY: TRAUMA COMPARISON: 01/26/2015 TECHNIQUE: Axial computed tomography images were obtained through the head/brain without intravenous contrast. Radiation dose: Total exam DLP = 1262.66 mGy-cm. This CT exam was performed using one or more of the following dose reduction techniques: Automated exposure control, adjustment of the mA and/or kV according to patient size, and/or use of iterative reconstruction technique. FINDINGS: HEMORRHAGE: No intracranial hemorrhage. BRAIN: No mass effect or edema. Minimal diffuse age-appropriate cerebral atrophy. VENTRICLES: Unremarkable. No hydrocephalus. CALVARIUM: Unremarkable. PARANASAL SINUSES: Unremarkable as visualized. No significant inflammatory changes. MASTOID AIR CELLS: Unremarkable as visualized. No inflammatory changes. OTHER FINDINGS: None. IMPRESSION: No intracranial mass, hemorrhage or evidence of acute infarct.
[2018-09-15 13:35] VITALS: BP 94/49; PULSE 73; RESP 14; TEMP 97.3; O2SAT 95
--- NOTE | 2018-09-15 17:51 | RAD ---
PROCEDURE: Radiographs of the pelvis and bilateral hips HISTORY: TRAUMA COMPARISON: None. TECHNIQUE: 2 views obtained. FINDINGS: BONES: Pelvis: Unremarkable. Right hip:Unremarkable. Left hip:Unremarkable. JOINTS: Right hip: Unremarkable. Left hip: Unremarkable. Sacroiliac Joints: Unremarkable. Pubic symphysis: Unremarkable. SOFT TISSUES: Normal. OTHER FINDINGS: None. IMPRESSION: Unremarkable radiographs of the hips and pelvis.
== END 2018-09-15 13:35 | disposition home or self-care (01) ==
LOC: C.ER 10:28
DX: S09.90XA Unspecified injury of head, initial encounter (principal); S70.01XA Contusion of right hip, initial encounter; W01.0XXA Fall on same level from slipping, tripping and stumbling without subsequent striking against object, initial encounter; I25.10 Atherosclerotic heart disease of native coronary artery without angina pectoris; I11.0 Hypertensive heart disease with heart failure; I50.9 Heart failure, unspecified; I48.91 Unspecified atrial fibrillation; I34.1 Nonrheumatic mitral (valve) prolapse; Z95.5 Presence of coronary angioplasty implant and graft; Z95.0 Presence of cardiac pacemaker; Z79.01 Long term (current) use of anticoagulants